=== PATIENT | male | born 1940 | race Caucasian/White ===

== ENCOUNTER → 2016-12-10 | Outpatient (REF) | payer MEDICARE, BC ==
[~2016-12-10] MED LIST: ALTA10CA; ALTACE; ASPI81TA63; GLUC500T; HYDR25TA6; THERGRAN; VITA200C; VITAMIN B-COMPLEX; [UNRECOGNIZED DRUG - OTHER]
[2016-12-10 11:11] LABS: MEAN CORPUSCULAR HEMOGLOBIN 32.4 pg (27.0-33.0); MEAN CORPUSCULAR HGB CONC 33.9 g/dl (32.0-36.5); MEAN CORPUSCULAR VOLUME 95.6 fl (80.0-96.0); RED CELL DISTRIBUTION WIDTH 13.2 % (11.5-14.5); WHITE BLOOD COUNT 8.9 K/mm3 (4.0-10.0)
[2016-12-10 11:16] LABS: INR 0.99
[2016-12-10 11:35] LABS: CALCIUM LEVEL 8.7 MG/DL (8.8-10.2); CREATININE FOR GFR 1.43 MG/DL (0.70-1.30); GLOMERULAR FILTRATION RATE 51.3 (>42); POTASSIUM SERUM 4.7 MEQ/L (3.5-5.1)
== END ==
LOC: M LABDRAWC 10:39
PROVIDERS: ATTEND Internal Medicine
DX: I10 Essential (primary) hypertension (principal); Z79.01 Long term (current) use of anticoagulants; I48.0 Paroxysmal atrial fibrillation

== ENCOUNTER → 2016-12-29 | Outpatient (REF) | payer MEDICARE, BC ==
[2016-12-29 12:49] LABS: BASO % 0.7 % (0.0-1.0); EOS # 0.1 K/mm3 (0.0-0.50); EOS % 0.9 % (0.0-3.0); LARGE UNSTAINED CELL # 0.1 K/mm3 (0.0-0.4); LARGE UNSTAINED CELL % 1.7 % (0.0-4.0); LYMPH # 2.4 K/mm3 (1.5-4.5); LYMPH % 32.2 % (24.0-44.0); MEAN CORPUSCULAR HEMOGLOBIN 31.4 pg (27.0-33.0); MEAN CORPUSCULAR HGB CONC 32.6 g/dl (32.0-36.5); MEAN CORPUSCULAR VOLUME 96.4 fl (80.0-96.0); MONO # 0.5 K/mm3 (0.0-0.8); MONO % 6.7 % (0.0-5.0); NEUTROPHILS # 4.1 K/mm3 (1.8-7.7); NEUTROPHILS % 57.8 % (36.0-66.0); PLATELET COUNT, AUTOMATED 213 k/mm3 (150-450); RED CELL DISTRIBUTION WIDTH 12.8 % (11.5-14.5); WHITE BLOOD COUNT 7.1 K/mm3 (4.0-10.0)
[2016-12-29 13:19] LABS: ALBUMIN 4.1 GM/DL (3.2-5.2); ALBUMIN/GLOBULIN RATIO 1.28 (1.00-1.93); BILIRUBIN,TOTAL 0.5 MG/DL (0.2-1.0); CALCIUM LEVEL 8.8 MG/DL (8.8-10.2); CREATININE FOR GFR 1.73 MG/DL (0.70-1.30); GLOMERULAR FILTRATION RATE 41.2 (>42); POTASSIUM SERUM 4.3 MEQ/L (3.5-5.1); TOTAL PROTEIN 7.3 GM/DL (6.4-8.2)
== END ==
LOC: M SFHCCLAY 08:01
PROVIDERS: ATTEND Nurse Practitioner
DX: D50.9 Iron deficiency anemia, unspecified (principal); E11.8 Type 2 diabetes mellitus with unspecified complications; Z12.5 Encounter for screening for malignant neoplasm of prostate
CPT/HCPCS: 80053; 80061; 82043; 83036; 83540; 85025; G0103

== ENCOUNTER → 2018-12-14 | Outpatient (REF) | payer MEDICARE, BC ==
[2018-12-14 18:06] LABS: BILIRUBIN,TOTAL 0.5 MG/DL (0.2-1.0); CALCIUM LEVEL 9.2 MG/DL (8.8-10.2); CHOLESTEROL RISK RATIO 3.025 (<5); CREATININE FOR GFR 1.67 MG/DL (0.70-1.30); GLOMERULAR FILTRATION RATE 42.7 (>42); POTASSIUM SERUM 4.7 MEQ/L (3.5-5.1); TOTAL PROTEIN 7.1 GM/DL (6.4-8.2)
[2018-12-14 18:15] LABS: MALB URINE SIEMENS 42.4 MG/L; MAU/CREAT RATIO 37.5 MCG/MG (0.0-30.0)
[2018-12-14 18:53] LABS: HEMOGLOBIN A1c 6.8 %
== END ==
LOC: M SFHCCLAY 13:09
PROVIDERS: ATTEND Family Medicine
DX: E11.8 Type 2 diabetes mellitus with unspecified complications (principal); Z13.220 Encounter for screening for lipoid disorders
CPT/HCPCS: 80053; 80061; 82043; 83036; 90670; G0009

== ENCOUNTER → 2019-01-10 | Outpatient (REF) | payer MEDICARE, BC ==
[2019-01-10 16:50] LABS: HEMATOCRIT 41.9 % (42.0-52.0); MEAN CORPUSCULAR HEMOGLOBIN 32.2 pg (27.0-33.0); MEAN CORPUSCULAR HGB CONC 33.4 g/dl (32.0-36.5); MEAN CORPUSCULAR VOLUME 96.3 fl (80.0-96.0); PLATELET COUNT, AUTOMATED 193 10^3/uL (150-450); RED BLOOD COUNT 4.35 10^6/uL (4.30-6.10); WHITE BLOOD COUNT 8.8 10^3/uL (4.0-10.0)
[2019-01-10 16:52] LABS: CALCIUM LEVEL 9.2 MG/DL (8.8-10.2); CREATININE FOR GFR 2.22 MG/DL (0.70-1.30); GLOMERULAR FILTRATION RATE 30.6 (>42)
== END ==
LOC: M LABDRAWC 16:17
PROVIDERS: ATTEND Internal Medicine Cardiovascular Disease
DX: I48.91 Unspecified atrial fibrillation (principal)

== ENCOUNTER → 2019-01-10 | Outpatient (REF) | payer MEDICARE, BC | LOC: M SFHCCLAY 11:52 | PROVIDERS: ATTEND Family Medicine | DX: E11.8 Type 2 diabetes mellitus with unspecified complications (principal) ==

== ENCOUNTER → 2019-02-07 | Outpatient (REF) | payer MEDICARE, BC ==
[2019-02-07 12:24] LABS: CALCIUM LEVEL 8.9 MG/DL (8.8-10.2); CREATININE FOR GFR 2.06 MG/DL (0.70-1.30); GLOMERULAR FILTRATION RATE 33.4 (>42); POTASSIUM SERUM 4.1 MEQ/L (3.5-5.1)
== END ==
LOC: M LABDRAWC 11:07
PROVIDERS: ATTEND Internal Medicine Cardiovascular Disease
DX: N18.9 Chronic kidney disease, unspecified (principal)
CPT/HCPCS: 36415; 80048; 83880; G0463

== ENCOUNTER → 2019-03-02 | Outpatient (CLI) | payer MEDICARE, BC ==
--- NOTE | 2019-03-02 15:58 | REP ---
HISTORY: Chronic kidney disease. COMPARISON: None. FINDINGS: Multiple ultrasonographic images of the right kidney show the right kidney to measure 11.7 x 5.5 x 5.9 cm. The renal cortical echotexture is unremarkable. There are no masses. There is good corticomedullary differentiation. There is no hydronephrosis. There are no perinephric fluid collections. Multiple ultrasonographic images of the left kidney show the left kidney to measure 11.2 x 5.1 x 5.3 cm. The renal cortical echotexture is unremarkable. There are no masses. There is good corticomedullary differentiation. There is no hydronephrosis. There are no perinephric fluid collections. Ultrasonography of the urinary bladder was not ordered as per review of the order in the patient's Localize Direct power jacket. Imaging of the urinary bladder was obtained solely for the purpose of assessing for uro-jet phenomenon. Ultrasonographic images of the urinary bladder show no evidence of uro-jet phenomenon from either UV junction. IMPRESSION: Within normal limits for the patient's age. Electronically Signed by Zackery Ureña DO 03/02/2019 04:24 P
== END ==
LOC: M RAD 12:54
PROVIDERS: ATTEND Internal Medicine Nephrology
DX: N18.3 Chronic kidney disease, stage 3 (moderate) (principal); I15.0 Renovascular hypertension

== ENCOUNTER 2020-10-30 14:38 | Inpatient (IN) | payer MEDICARE, BC ==
[~2020-10-30] VITALS: Ht 182.9 cm; Wt 123.4 kg
[~2020-10-30 14:38] MED LIST changes: +BACI1CAP PO; +CARA1TAB6 PO; +COQ1200C3 PO; +D31000TA2 PO; +DICY1CAP8 PO; +ELIQ5TAB PO; +EQL50TAB2 PO; +INVO100T PO; +LUTE2000 PO; +METO1TAB33 PO; +MI-A80CH PO; +PLAV1TAB2 PO; +PROTPAK PO; +SIMV40TA20 PO; +SITA50TAB PO
[2020-10-30 15:36] LABS: BASO % 0.4 % (0.0-1.0); EOS # 0.1 10^3/uL (0.0-0.5); HEMATOCRIT 38.6 % (42.0-52.0); HEMOGLOBIN 12.8 g/dl (13.5-17.5); LYMPH # 1.5 10^3/uL (1.5-5.0); LYMPH % 16.1 % (24.0-44.0); MEAN CORPUSCULAR HEMOGLOBIN 30.8 pg (27.0-33.0); MEAN CORPUSCULAR HGB CONC 33.2 g/dl (32.0-36.5); MONO % 10.2 % (2.0-8.0); NEUTROPHILS # 6.8 10^3/uL (1.5-8.5); NEUTROPHILS % 71.6 % (36.0-66.0); PLATELET COUNT, AUTOMATED 177 10^3/uL (150-450); RED BLOOD COUNT 4.15 10^6/uL (4.30-6.10); WHITE BLOOD COUNT 9.4 10^3/uL (4.0-10.0)
[2020-10-30 15:47] LABS: INR 1.3; PROTHROMBIN TIME 16.5 SECONDS (12.5-14.3)
--- NOTE | 2020-10-30 16:08 | REP ---
INDICATION: weakness/abdominal pain. COMPARISON: None. The accompanying upright frontal view the chest has been compared to the previous examination of 10/19/2020 TECHNIQUE: Supine and upright views 6 views total FINDINGS: The accompanying frontal view the chest is unchanged from the prior portable examination of 10/19/2020. There is no free subdiaphragmatic air. There is no acute disease. There is cardiomegaly accentuated by technique. Multiple views of the abdomen show multiple dilated gas-filled particularly large bowel but some small bowel as well. There is a paucity of gas in the rectosigmoid region. There is no evidence of free intraperitoneal air. IMPRESSION: Bowel obstruction <Electronically signed by Zackery Ureña > 10/30/20 [id number]
[2020-10-30 16:12] LABS: ALBUMIN 3.2 GM/DL (3.2-5.2); ALT/SGPT 32 U/L (12-78); BILIRUBIN,DIRECT 0.1 MG/DL (0.0-0.2); BILIRUBIN,TOTAL 0.4 MG/DL (0.2-1.0); BLOOD UREA NITROGEN 33 MG/DL (7-18); CALCIUM LEVEL 8.1 MG/DL (8.8-10.2); CARBON DIOXIDE LEVEL 24 MEQ/L (21-32); CHLORIDE LEVEL 108 MEQ/L (98-107); CK-MB VALUE MASS 1.1 NG/ML (<3.6); CPK CREATINE PHOSPHOKINASE 45 U/L (39-308); CREATININE FOR GFR 1.78 MG/DL (0.70-1.30); GLOMERULAR FILTRATION RATE 39.4 (>42); GLUCOSE, FASTING 170 MG/DL (70-100); MB/CK RELATIVE INDEX 2.44 (< OR =4); POTASSIUM SERUM 3.4 MEQ/L (3.5-5.1); SODIUM LEVEL 140 MEQ/L (136-145); TROPONIN I < 0.02 NG/ML (< 0.10)
[2020-10-30 17:34] LABS: RSV AMPLIFICATION NEGATIVE (NEGATIVE)
[2020-10-30] MEDS ORDERED: HOME MED LIST COMPLETE! XX SCH (17:40)
[2020-10-30] MEDS ORDERED: DEXTROSE 50% 50 ML SYRINGE IV PRN (19:05)
[2020-10-30] MEDS ORDERED: GLUCOSE 4GM CHEW TABLET PO PRN (19:05)
[2020-10-30] MEDS ORDERED: GLUCAGON INJ 1MG VIAL SC PRN (19:05)
[2020-10-30] MEDS: KCL 20MEQ IN D5/0.45NS 1000ML 1,000 ML IV SCH (19:05)
[2020-10-30] MEDS ORDERED: HumaLOG INSULIN (NovoLOG) PER UNIT SC SCH (19:05)
[2020-10-30] MEDS ORDERED: PILL CUTTER 1 EACH XX PRN (20:30)
[2020-10-30] MEDS ORDERED: METOPROLOL SUCC (TopROL XL) 100MG *XL* TAB PO SCH (21:00)
--- NOTE | 2020-10-30 21:18 | ECGEPIP ---
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
[2020-10-30 21:32] VITALS: BP 123/72
[2020-10-30] MEDS: HumaLOG INSULIN (NovoLOG) PER UNIT SC SCH (22:19)
[2020-10-30] MEDS: METOPROLOL SUCC (TopROL XL) 50MG **XL** TAB PO SCH (22:25)
[2020-10-30] MEDS: SIMETHICONE 80MG CHEW TAB PO SCH (22:26)
[2020-10-30] MEDS: PREPARATION H SUPP (HEMORRHOID) PR SCH (22:27)
[2020-10-31] MEDS: KCL 20MEQ IN D5/0.45NS 1000ML 1,000 ML IV SCH ×3 (03:56→20:19)
[2020-10-31 04:00] VITALS: BP 129/68
[2020-10-31] MEDS: HumaLOG INSULIN (NovoLOG) PER UNIT SC SCH ×4 (05:50→18:11)
[2020-10-31 08:04] VITALS: BP 114/73
[2020-10-31 08:58] LABS: HEMATOCRIT 35.7 % (42.0-52.0); HEMOGLOBIN 11.6 g/dl (13.5-17.5); MEAN CORPUSCULAR HEMOGLOBIN 30.7 pg (27.0-33.0); MEAN CORPUSCULAR HGB CONC 32.5 g/dl (32.0-36.5); MEAN CORPUSCULAR VOLUME 94.4 fl (80.0-96.0); PLATELET COUNT, AUTOMATED 164 10^3/uL (150-450); RED BLOOD COUNT 3.78 10^6/uL (4.30-6.10); WHITE BLOOD COUNT 7.9 10^3/uL (4.0-10.0)
[2020-10-31] MEDS ORDERED: METOPROLOL SUCC (TopROL XL) 50MG **XL** TAB PO SCH (09:00)
[2020-10-31] MEDS: METOPROLOL SUCC (TopROL XL) 100MG *XL* TAB PO SCH (09:22)
[2020-10-31] MEDS: PREPARATION H SUPP (HEMORRHOID) PR SCH ×2 (09:23→20:19)
[2020-10-31] MEDS: SIMETHICONE 80MG CHEW TAB PO SCH ×4 (09:23→20:20)
[2020-10-31 09:27] LABS: CALCIUM LEVEL 7.9 MG/DL (8.8-10.2); CREATININE FOR GFR 1.69 MG/DL (0.70-1.30); GLOMERULAR FILTRATION RATE 41.9 (>42); POTASSIUM SERUM 3.4 MEQ/L (3.5-5.1)
--- NOTE | 2020-10-31 09:59 | HPE ---
HISTORY AND PHYSICAL DATE OF ADMISSION: 10/30/2020 CHIEF COMPLAINT: Rectal bleeding. HISTORY OF PRESENT ILLNESS: Hugo Monson is a 80-year-old patient of Dr. Barone in the [facility]. He was recently hospitalized earlier this month for rectal bleeding. He had a colonoscopy performed, invasive colorectal adenocarcinoma, moderately differentiated, was biopsied from a sigmoid mass. He planned elective partial colectomy later this month. He redeveloped perfuse rectal bleeding today and came to the emergency room and is being admitted for observation and treatment. PAST MEDICAL HISTORY: He has a history of aortic valve replacement. He has a bioprosthetic aortic valve which functioned normally on echocardiogram from 10/19/2020. Ejection fraction was 60-65%. Left atrium mildly dilated 39 mm. History of type 2 diabetes. Chronic atrial fibrillation. Chronic kidney disease stage 3. Coronary artery disease with a stent in unspecified vessel, 2016. He had cardioversion, 12/23, 11/23, and then ablation procedure on 01/25. He is followed by cardiology group in [place]. No recent records have been sent to his primary care providers since 02/24. He did have a history of chronic diastolic congestive heart failure, pericardial effusion diagnosed in the past. He was on anticoagulant therapy until his recent episode. PAST SURGICAL HISTORY: 1. Aortic valve replacement with bioprosthetic aortic valve. 2. Coronary disease with stent in unspecified vessel. 3. Appendectomy. 4. Tonsillectomy. 5. Numerous cardioversions. 6. Ablation procedure on 01/25. ALLERGIES: SULFA. MEDICATIONS: 1. Plavix 75 mg daily. 2. Invokana 100 mg daily. 3. Jean-Paul multivitamins including lutein. 4. Vitamin B. 5. Vitamin D. 6. Metoprolol 100 mg in the morning. 7. Metoprolol 50 mg at bedtime. 8. Simvastatin 40 mg nightly at bedtime. 9. Januvia 50 mg daily. 10. Co-enzyme Q10. 11. Eliquis 5 mg b.i.d. 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 Quit smoking in 1973, moderate alcohol use. FAMILY HISTORY: Father of pulmonary embolism at 64. Sibling with CHF and hepatitis C. REVIEW OF SYSTEMS: No vomiting, emesis, or nausea. He is passing flatus. He is quite distended per his spouse. No polyuria or polydipsia, fever or chills. PHYSICAL EXAMINATION: VITAL SIGNS: Per flow sheet. GENERAL APPEARANCE: He is alert, conversant, in no distress. HEENT: Unremarkable. LUNGS: Clear. HEART: Regular rhythm, LUNGS: Decreased breath sounds, scattered rhonchi. HEART: Regular rate and rhythm, 1/6 systolic ejection murmur. ABDOMEN: Soft and nontender with no masses. EXTREMITIES: No clubbing, cyanosis. He has 1+ peripheral edema. This was of recent onset per his partner. NECK: No JVD is present. LABORATORY: White count 9.4, hemoglobin 12.8, platelets 177. Sodium 140, potassium 3.4, BUN 32, creatinine 1.7, glucose 170. COVID test negative. IMPRESSION: 1. Rectal bleeding. The patient with known sigmoid adenocarcinoma. Serial CBCs have been ordered. He has typed and screened. He is not currently actively bleeding. Despite the edema, I am getting him some hydration due to today's bleeding. 2. Diabetes. Sliding scale and insulin coverage has been ordered. 3. History of aortic valve replacement. Bioprosthetic aortic valve was functioning normally on a recent echocardiogram. 4. History of atrial fibrillation, currently in sinus rhythm. He has had an ablation procedure. Preoperative EKG has been ordered. 5. Hypertensive heart disease. Continue his metoprolol 100 mg in the morning and 50 mg in the evening. 6. Hypokalemia. Supplemental potassium has been ordered in the IV fluids. 7. Lower extremity edema. TEDs and SCDs have been ordered. He had a chest x-ray. He had normal systolic function on recent echocardiogram. Hydrate him overnight even if he is n.p.o. I do not want him going to the operating room dehydrated, but we have to watch his volume status closely.
--- NOTE | 2020-10-31 10:21 | IPN ---
PROGRESS NOTE DATE: 10/31/2020 SUBJECTIVE: Hugo was admitted with rectal bleeding yesterday that seems to be improved. There is just a scant amount of bleeding noted per patient today. OBJECTIVE: VITAL SIGNS: Blood pressure 114/73, afebrile. GENERAL APPEARANCE: Alert, conversant, in no distress. LUNGS: Clear. HEART: Regular rate and rhythm. ABDOMEN: Soft, nontender. EXTREMITIES: No peripheral edema. LABORATORY DATA: Potassium 3.4, creatinine stable at 1.7. Hemoglobin stable at 11.6. IMPRESSION: 1. Rectal bleeding presumably from his sigmoid adenocarcinoma. He will stay in the hospital until his surgery is completed. 2. Diabetes, on sliding scale insulin and coverage while off his oral agents. 3. Hypertensive heart disease, continue his metoprolol 50 mg at bedtime, 100 mg in the morning. 4. History of coronary artery disease, his Eliquis and Plavix are on hold pending surgery. The case was discussed yesterday with Dr. Newell who will see the patient in consultation.
[2020-10-31 12:00] VITALS: BP 143/76
--- NOTE | 2020-10-31 14:29 | IPN ---
PROGRESS NOTE DATE: 10/31/2020 SUBJECTIVE: This patient was admitted last night with this large bowel obstruction/rectal bleeding. His hematocrit has been relatively stable although he has had a little bit of a decline in his hematocrit and his other chemistries seem to be improving with hydration. His creatinine seems to be diminishing a little bit with hydration. Otherwise he is not complaining of any abdominal pain. He has had some minimal bowel movements and states there is still some blood present and notices a great deal of gas still. OBJECTIVE: PHYSICAL EXAMINATION: ABDOMEN: Distended, tympanitic throughout without guarding, without rebound. IMPRESSION AND PLAN: The patient has a large bowel obstruction. I recommend that he continue with some supportive care over the weekend and see if he decompresses adequately to put him on the schedule for a laparoscopic colectomy/possible colostomy next week. In the meantime, if he becomes less distended over the next 24-48 hours, it may be reasonable to start up some clear liquids and then possibly do a minimal amount of bowel prep preoperatively to help with decreasing perioperative risks of infection, etc.
[2020-10-31 16:00] VITALS: BP 131/85
[2020-10-31 20:00] VITALS: BP 118/66
[2020-10-31] MEDS: METOPROLOL SUCC (TopROL XL) 50MG **XL** TAB PO SCH (20:20)
[2020-11-01] VITALS: BP 120/78
[2020-11-01] MEDS: HumaLOG INSULIN (NovoLOG) PER UNIT SC SCH ×5 (00:58→23:49)
[2020-11-01] MEDS: KCL 20MEQ IN D5/0.45NS 1000ML 1,000 ML IV SCH ×3 (03:13→18:23)
[2020-11-01 07:45] VITALS: BP 131/71
[2020-11-01 08:30] LABS: HEMATOCRIT 35.4 % (42.0-52.0); HEMOGLOBIN 11.4 g/dl (13.5-17.5); MEAN CORPUSCULAR HEMOGLOBIN 30.8 pg (27.0-33.0); MEAN CORPUSCULAR HGB CONC 32.2 g/dl (32.0-36.5); MEAN CORPUSCULAR VOLUME 95.7 fl (80.0-96.0); PLATELET COUNT, AUTOMATED 166 10^3/uL (150-450); WHITE BLOOD COUNT 6.8 10^3/uL (4.0-10.0)
[2020-11-01] MEDS: METOPROLOL SUCC (TopROL XL) 100MG *XL* TAB PO SCH (08:53)
[2020-11-01] MEDS: SIMETHICONE 80MG CHEW TAB PO SCH ×4 (08:53→21:06)
[2020-11-01] MEDS: PREPARATION H SUPP (HEMORRHOID) PR SCH ×2 (08:53→21:00)
[2020-11-01 08:56] LABS: CALCIUM LEVEL 7.8 MG/DL (8.8-10.2); CREATININE FOR GFR 1.58 MG/DL (0.70-1.30); GLOMERULAR FILTRATION RATE 45.3 (>42); POTASSIUM SERUM 3.6 MEQ/L (3.5-5.1)
--- NOTE | 2020-11-01 10:01 | IPN ---
PROGRESS NOTE DATE: 11/01/2020 SUBJECTIVE: Matthew is having some scant rectal bleeding. He was seen by Dr. Newell. The plan is for laparoscopic colectomy, possible colostomy next week. OBJECTIVE: VITAL SIGNS: Stable blood pressure 131/71. LUNGS: Clear. HEART: Regular rate and rhythm. ABDOMEN: Soft and mildly distended. Good bowel sounds. EXTREMITIES: Trace peripheral edema. LABORATORY DATA: CBC hemoglobin is 11.4 essentially stable. Creatinine is down to 1.58. ASSESSMENT AND PLAN: 1. Rectal bleeding secondary to sigmoid adenocarcinoma. The plan is for laparoscopic colectomy. I am going to defer to surgery as far as ordering the bowel prep, etc. that Dr. Newell noted. 2. Diabetes. Sliding scale insulin coverage. 3. Hypertensive heart disease. Blood pressure is well-controlled on current regimen. 4. History of coronary artery disease. Eliquis and Plavix are on hold pending surgery.
[2020-11-01] MEDS: MIRALAX *UNIT DOSE* 17GM PACKET PO SCH ×2 (10:43→21:06)
[2020-11-01 13:00] VITALS: BP 165/84
[2020-11-01 14:00] VITALS: BP 136/74
--- NOTE | 2020-11-01 17:59 | IPNPDOC ---
Text Note Date of Service The patient was seen on 11/01/20. NOTE Nurse reports nonbloody loose stool this morning. He has episodes where he is nauseated by the time they saw him he denies any nausea. Vitals reviewed stable, no tachycardia, afebrile Patient sitting up on the chair, awake alert and oriented, looks comfortable Abdominal examination shows that he still moderately distended and tympanic though he does not have any tenderness on palpation Impression and plan Known sigmoid colon adenocarcinoma with partial obstruction and bleeding from the mass. He was expecting that he was going to surgery on Tuesday. I clarified to him that he is not on the surgical schedule as of yet. They will inform Dr. Cheng on Tuesday and it will be up to him when to do his surgery. I will start a slow prep with MiraLAX twice daily and see how he tolerates this and maybe increase it later on if he does tolerate taking some laxatives. VS,Fishbone, I+O VS, Fishbone, I+O Laboratory Tests 11/01/20 08:03 Vital Signs Date Time Temp Pulse Resp B/P (MAP) Pulse Ox O2 Delivery O2 Flow Rate FiO2 11/01/20 14:00 136/74 (94) 11/01/20 13:00 97.3 77 18 99 Room Air I&O- Last 24 Hours up to 6 AM 11/01/20 06:00 Intake Total 1000 ml Output Total 750 ml Balance 250 ml NIKKIE IGNACIO MD Nov 01, 2020 17:59
[2020-11-01] MEDS: METOPROLOL SUCC (TopROL XL) 50MG **XL** TAB PO SCH (21:07)
[2020-11-01 22:00] VITALS: BP 114/67
[2020-11-02] MEDS: KCL 20MEQ IN D5/0.45NS 1000ML 1,000 ML IV SCH ×4 (03:42→20:55)
[2020-11-02 05:31] VITALS: BP 128/70
[2020-11-02] MEDS: HumaLOG INSULIN (NovoLOG) PER UNIT SC SCH ×4 (05:39→23:57)
[2020-11-02 06:49] LABS: HEMATOCRIT 34.3 % (42.0-52.0); MEAN CORPUSCULAR HEMOGLOBIN 30.5 pg (27.0-33.0); MEAN CORPUSCULAR HGB CONC 32.1 g/dl (32.0-36.5); PLATELET COUNT, AUTOMATED 161 10^3/uL (150-450); RED BLOOD COUNT 3.61 10^6/uL (4.30-6.10); WHITE BLOOD COUNT 6.2 10^3/uL (4.0-10.0)
[2020-11-02 07:10] LABS: CALCIUM LEVEL 7.7 MG/DL (8.8-10.2); CREATININE FOR GFR 1.62 MG/DL (0.70-1.30); POTASSIUM SERUM 3.6 MEQ/L (3.5-5.1)
[2020-11-02] MEDS: SIMETHICONE 80MG CHEW TAB PO SCH ×4 (08:24→20:57)
[2020-11-02] MEDS: MIRALAX *UNIT DOSE* 17GM PACKET PO SCH ×2 (08:24→20:57)
[2020-11-02] MEDS: METOPROLOL SUCC (TopROL XL) 100MG *XL* TAB PO SCH (08:24)
[2020-11-02] MEDS: PREPARATION H SUPP (HEMORRHOID) PR SCH ×2 (08:24→21:00)
--- NOTE | 2020-11-02 09:38 | IPN ---
PROGRESS NOTE DATE: 11/02/2020 SUBJECTIVE: Hugo is stable. No significant rectal bleeding. No significant abdominal pain. OBJECTIVE: VITAL SIGNS: He has been stable. Vital signs stable. LUNGS: Clear. HEART: Regular rate and rhythm. ABDOMEN: Obese and nontender with no masses. EXTREMITIES: No peripheral edema. LABORATORY DATA: Hemoglobin is 11. Creatinine stable at 1.6. Blood sugars are below 200. ASSESSMENT: Rectal bleeding from adenocarcinoma. PLAN: We are waiting for surgery to put him on the schedule so we can perform his procedure during this admission. I appreciate Dr. Astorga's note. He is going to find Dr. Shay and get this set up.
[2020-11-02 14:00] VITALS: BP 116/71
[2020-11-02 20:57] VITALS: BP 112/72
[2020-11-02] MEDS: METOPROLOL SUCC (TopROL XL) 50MG **XL** TAB PO SCH (20:57)
[2020-11-03] MEDS: KCL 20MEQ IN D5/0.45NS 1000ML 1,000 ML IV SCH ×2 (05:36→21:41)
[2020-11-03] MEDS: HumaLOG INSULIN (NovoLOG) PER UNIT SC SCH ×3 (05:43→18:42)
[2020-11-03 06:00] VITALS: BP 93/60
[2020-11-03 06:41] LABS: HEMATOCRIT 32.5 % (42.0-52.0); HEMOGLOBIN 10.3 g/dl (13.5-17.5); MEAN CORPUSCULAR HEMOGLOBIN 30.2 pg (27.0-33.0); MEAN CORPUSCULAR HGB CONC 31.7 g/dl (32.0-36.5); MEAN CORPUSCULAR VOLUME 95.3 fl (80.0-96.0); PLATELET COUNT, AUTOMATED 146 10^3/uL (150-450); RED BLOOD COUNT 3.41 10^6/uL (4.30-6.10); WHITE BLOOD COUNT 5.8 10^3/uL (4.0-10.0)
[2020-11-03 07:02] LABS: CALCIUM LEVEL 7.9 MG/DL (8.8-10.2); CREATININE FOR GFR 1.65 MG/DL (0.70-1.30); GLOMERULAR FILTRATION RATE 43.1 (>42); POTASSIUM SERUM 3.9 MEQ/L (3.5-5.1)
[2020-11-03] MEDS: MIRALAX *UNIT DOSE* 17GM PACKET PO SCH ×2 (10:36→21:41)
[2020-11-03] MEDS: SIMETHICONE 80MG CHEW TAB PO SCH ×4 (10:37→21:41)
[2020-11-03] MEDS: METOPROLOL SUCC (TopROL XL) 100MG *XL* TAB PO SCH (10:37)
[2020-11-03] MEDS: PREPARATION H SUPP (HEMORRHOID) PR SCH ×2 (10:38→21:00)
--- NOTE | 2020-11-03 13:07 | IPN ---
PROGRESS NOTE DATE: 11/03/2020 SUBJECTIVE: No new rectal bleeding, waiting for his surgeon to schedule his partial colectomy. OBJECTIVE: 93/60 this morning, pulse 78, respiratory rate 16, afebrile. No complaints. Lungs clear. Heart regular rhythm. Abdomen soft, nontender, non-distended. No peripheral edema. LABS: Hemoglobin 10.3 which is stable. Electrolytes unremarkable. Creatinine 1.65 which is stable. Blood sugars below 200. ASSESSMENT/PLAN: 1. Rectal bleeding from sigmoid adenocarcinoma. I discussed the case with Dr. Shay yesterday and he will put him on the schedule for this week. 2. Diabetes: Sliding scale insulin while his oral agents are held. 3. Hypertensive heart disease: Blood pressure is a little low this morning and I have ordered hold parameters. 4. History of coronary artery disease: Plavix and Eliquis were held on admission. These will need to be restarted after his surgery.
[2020-11-03 14:00] VITALS: BP 124/78
--- NOTE | 2020-11-03 14:43 | IPNPDOC ---
Text Note Date of Service The patient was seen on 11/03/20. NOTE Gen. surgery. Dr. hSay. The patient is a 80-year-old male with known sigmoid colon adenocarcinoma with partial obstruction and bleeding from the mass, admitted 10/31/20 with rectal bleeding. Afebrile. VSS. Lungs clear to auscultation S1-S2 regular rate and rhythm Abdomen soft, nontender, nondistended. No edema. Hgb 10.3. A/P Known sigmoid colon adenocarcinoma with partial obstruction and bleeding from the mass, admitted 10/31/20 with rectal bleeding. The patient reports no further bleeding. Hemoglobin is noted to be 10.3. The patient is reviewed with Dr. Shay. Tentative plan is to schedule the patient for partial colectomy this week with Dr Shay. Eliquis and Plavix are currently on hold. VS,Fishbone, I+O VS, Fishbone, I+O Laboratory Tests 11/03/20 06:11 Vital Signs Date Time Temp Pulse Resp B/P (MAP) Pulse Ox O2 Delivery O2 Flow Rate FiO2 11/03/20 10:37 84 125/78 11/03/20 06:00 97.7 16 98 Room Air I&O- Last 24 Hours up to 6 AM 11/03/20 06:00 Intake Total 2565 ml Balance 2565 ml Erica Cadet Nov 03, 2020 14:43
[2020-11-03] MEDS: METOPROLOL SUCC (TopROL XL) 50MG **XL** TAB PO SCH (21:43)
[2020-11-03 22:06] VITALS: BP 108/74
[2020-11-04] MEDS: HumaLOG INSULIN (NovoLOG) PER UNIT SC SCH ×4 (00:06→18:15)
[2020-11-04 06:30] VITALS: BP 123/77
[2020-11-04 06:54] LABS: HEMATOCRIT 33.8 % (42.0-52.0); HEMOGLOBIN 10.7 g/dl (13.5-17.5); MEAN CORPUSCULAR HEMOGLOBIN 30.7 pg (27.0-33.0); MEAN CORPUSCULAR HGB CONC 31.7 g/dl (32.0-36.5); MEAN CORPUSCULAR VOLUME 96.8 fl (80.0-96.0); PLATELET COUNT, AUTOMATED 162 10^3/uL (150-450); RED BLOOD COUNT 3.49 10^6/uL (4.30-6.10); WHITE BLOOD COUNT 6.7 10^3/uL (4.0-10.0)
[2020-11-04 07:22] LABS: CALCIUM LEVEL 8.1 MG/DL (8.8-10.2); CREATININE FOR GFR 1.63 MG/DL (0.70-1.30); GLOMERULAR FILTRATION RATE 43.7 (>42); POTASSIUM SERUM 3.9 MEQ/L (3.5-5.1)
[2020-11-04] MEDS ORDERED: GOLYTELY SOLN 4000 ML BTL PO ONE (08:00)
[2020-11-04] MEDS: MIRALAX *UNIT DOSE* 17GM PACKET PO SCH (08:08)
[2020-11-04] MEDS: METOPROLOL SUCC (TopROL XL) 100MG *XL* TAB PO SCH (08:08)
[2020-11-04] MEDS: SIMETHICONE 80MG CHEW TAB PO SCH ×4 (08:08→21:52)
[2020-11-04] MEDS: PREPARATION H SUPP (HEMORRHOID) PR SCH ×2 (08:09→21:00)
--- NOTE | 2020-11-04 08:51 | IPNPDOC ---
Text Note Date of Service The patient was seen on 11/04/20. NOTE Gen. surgery. Dr. Sahy. The patient is a 80-year-old male with known sigmoid colon adenocarcinoma with partial obstruction and bleeding from the mass, admitted 10/31/20 with rectal bleeding. Afebrile. VSS. Lungs clear to auscultation S1-S2 regular rate and rhythm Abdomen soft, nontender, nondistended. No edema. Hgb 10.7. A/P Known sigmoid colon adenocarcinoma with partial obstruction and bleeding from the mass, admitted 10/31/20 with rectal bleeding. The patient reports no further bleeding. Hemoglobin is noted to be 10.7. The patient is reviewed and examined by Dr. Shay. Plan is for partial colectomy with Dr Shay tomorrow afternoon. Eliquis and Plavix are currently on hold. VS,Fishbone, I+O VS, Fishbone, I+O Laboratory Tests 11/04/20 05:53 Vital Signs Date Time Temp Pulse Resp B/P (MAP) Pulse Ox O2 Delivery O2 Flow Rate FiO2 11/04/20 08:08 75 123/77 11/04/20 06:30 97.6 16 98 Room Air I&O- Last 24 Hours up to 6 AM 11/04/20 05:59 Intake Total 2985 ml Balance 2985 ml Erica Cadet Nov 04, 2020 08:51
[2020-11-04 14:00] VITALS: BP 132/82
[2020-11-04] MEDS: KCL 20MEQ IN D5/0.45NS 1000ML 1,000 ML IV SCH (16:42)
--- NOTE | 2020-11-04 17:14 | IPNPDOC ---
Subjective Date Seen The patient was seen on 11/04/20. Subjective Chief Complaint/HPI rectal bleeding Objective Physical Examination General Exam: Positive: Alert, Cooperative, No Acute Distress Eye Exam: Positive: PERRLA ENT Exam: Positive: Atraumatic, Mucous membr. moist/pink Neck Exam: Positive: Supple Chest Exam: Positive: Clear to auscultation Heart Exam: Positive: Rate Normal Abdomen Exam: Positive: Normal bowel sounds, Soft; Negative: Tenderness Extremity Exam: Positive: Edema Skin Exam: Negative: Rash Neuro Exam: Positive: Normal Speech Psych Exam: Positive: Mood NL Assessment /Plan Assessment 80 y/o M with h/o adenocarcinoma initially came to ER c/o rectal bleeding Labs and imaging studies reviewed Pt denied any physical complaint. No more episode of rectal bleeding Plan 1. episode of rectal bleeding from sigmoid adenocarcinoma. will f/u with Dr Shay for surgery 2.DM type 2 insulin sliding scale 3. Obesity supportive care 4. HTN home meds 5. h/o CAD home meds will restart home meds Plavix and Eliquis after surgery 6. h/o Afib will continue rate control medication Metoprolol will continue to hold Eliquis due to episode of rectal bleeding will resume home medication Eliquis after surgery Plan/VTE VTE Prophylaxis Ordered?: No VTE Exclusion Pharmacological: Bleeding Risk VS, I&O, 24H, Fishbone Vital Signs/I&O Vital Signs Date Time Temp Pulse Resp B/P (MAP) Pulse Ox O2 Delivery O2 Flow Rate FiO2 11/04/20 14:00 98.6 75 17 132/82 (99) 100 Room Air I&O- Last 24 Hours up to 6 AM 11/04/20 06:00 Intake Total 2535 ml Balance 2535 ml Laboratory Data 24H LABS Laboratory Tests 2 11/03/20 18:05: Bedside Glucose (Misc Panel) 137H 11/04/20 00:02: Bedside Glucose (Misc Panel) 145H 11/04/20 05:34: Bedside Glucose (Misc Panel) 174H 11/04/20 05:53: Nucleated Red Blood Cells % (auto) 0.0, Anion Gap 10, Glomerular Filtration Rate 43.7, Calcium Level 8.1L 11/04/20 11:53: Bedside Glucose (Misc Panel) 157H CBC/BMP Laboratory Tests 11/04/20 05:53 MARGARITO PINEDA MD Nov 04, 2020 17:14
[2020-11-04] MEDS: METOPROLOL SUCC (TopROL XL) 50MG **XL** TAB PO SCH (21:00)
[2020-11-05] MEDS: HumaLOG INSULIN (NovoLOG) PER UNIT SC SCH ×4 (00:47→16:50)
[2020-11-05 05:47] LABS: HEMATOCRIT 34.4 % (42.0-52.0); HEMOGLOBIN 11.2 g/dl (13.5-17.5); MEAN CORPUSCULAR HEMOGLOBIN 30.9 pg (27.0-33.0); MEAN CORPUSCULAR HGB CONC 32.6 g/dl (32.0-36.5); PLATELET COUNT, AUTOMATED 165 10^3/uL (150-450); RED BLOOD COUNT 3.62 10^6/uL (4.30-6.10); WHITE BLOOD COUNT 6.8 10^3/uL (4.0-10.0)
[2020-11-05 06:00] VITALS: BP 125/89
[2020-11-05 06:21] LABS: CREATININE FOR GFR 1.52 MG/DL (0.70-1.30); GLOMERULAR FILTRATION RATE 47.3 (>42); POTASSIUM SERUM 3.8 MEQ/L (3.5-5.1)
[2020-11-05] MEDS: SIMETHICONE 80MG CHEW TAB PO SCH ×4 (08:14→21:28)
[2020-11-05] MEDS: METOPROLOL SUCC (TopROL XL) 100MG *XL* TAB PO SCH (08:14)
[2020-11-05] MEDS: PREPARATION H SUPP (HEMORRHOID) PR SCH ×2 (08:14→21:00)
[2020-11-05] MEDS: KCL 20MEQ IN D5/0.45NS 1000ML 1,000 ML IV SCH ×2 (12:51→22:43)
[2020-11-05] MEDS ORDERED: fentaNYL 100 MCG/2 ML INJECTION (J3010) As Ordered ONE ×4 (13:13→19:53)
[2020-11-05 14:00] VITALS: BP 140/87
[2020-11-05] MEDS ORDERED: BUPIVACAINE/EPIN 0.25% 30 ML VIAL ONE (14:52)
--- NOTE | 2020-11-05 14:55 | IPNPDOC ---
Text Note Date of Service The patient was seen on 11/05/20. NOTE No acute changes overnight. He tolerated the prep. Consent is signed. To OR this afternoon for RA sigmoid resection for colon cancer. No changes to H+P. Juan Shay DO VS,Sveta, I+O VS, Sveta, I+O Laboratory Tests 11/05/20 05:31 Vital Signs Date Time Temp Pulse Resp B/P (MAP) Pulse Ox O2 Delivery O2 Flow Rate FiO2 11/05/20 08:14 76 125/89 11/05/20 06:00 98.1 20 99 Room Air I&O- Last 24 Hours up to 6 AM 11/05/20 06:00 Intake Total 1620 ml Balance 1620 ml DAVIS SHAY DO Nov 05, 2020 14:55
--- NOTE | 2020-11-05 15:03 | IPNPDOC ---
Subjective Date Seen The patient was seen on 11/05/20. Subjective Chief Complaint/HPI episode of rectal bleeding Objective Physical Examination General Exam: Positive: Alert, Cooperative, No Acute Distress Eye Exam: Positive: PERRLA ENT Exam: Positive: Atraumatic, Mucous membr. moist/pink Neck Exam: Positive: Supple Chest Exam: Positive: Clear to auscultation Heart Exam: Positive: Rate Normal Abdomen Exam: Positive: Normal bowel sounds, Soft; Negative: Tenderness Extremity Exam: Positive: Edema Skin Exam: Negative: Rash Neuro Exam: Positive: Normal Speech Psych Exam: Positive: Mood NL Assessment /Plan Assessment 80 y/o M with h/o adenocarcinoma initially came to ER c/o rectal bleeding Labs and imaging studies reviewed No significant event over the night. Pt was resting comfortably in bed. Denied any physical complaint. No more episode of rectal bleeding Plan 1. episode of rectal bleeding from sigmoid adenocarcinoma. will f/u with Dr Shay for surgery 2.DM type 2 insulin sliding scale 3. Obesity supportive care 4. HTN home meds 5. h/o CAD home meds will restart home meds Plavix and Eliquis after surgery 6. h/o Afib will continue rate control medication Metoprolol will continue to hold Eliquis due to episode of rectal bleeding will resume home medication Eliquis after surgery 7. CKD stage 3 stable will avoid nephrotoxic meds Plan/VTE VTE Prophylaxis Ordered?: No VTE Exclusion Pharmacological: Bleeding Risk VS, I&O, 24H, Fishbone Vital Signs/I&O Vital Signs Date Time Temp Pulse Resp B/P (MAP) Pulse Ox O2 Delivery O2 Flow Rate FiO2 11/05/20 08:14 76 125/89 11/05/20 06:00 98.1 20 99 Room Air I&O- Last 24 Hours up to 6 AM 11/05/20 06:00 Intake Total 1620 ml Balance 1620 ml Laboratory Data 24H LABS Laboratory Tests 2 11/04/20 18:11: Bedside Glucose (Misc Panel) 137H 11/05/20 00:21: Bedside Glucose (Misc Panel) 151H 11/05/20 05:31: Nucleated Red Blood Cells % (auto) 0.0, Anion Gap 10, Glomerular Filtration Rate 47.3, Calcium Level 8.0L CBC/BMP Laboratory Tests 11/05/20 05:31 Microbiology Microbiology 11/05/20 Respiratory Virus Panel (PCR) (SUDHIR) - Final, Complete MARGARITO PINEDA MD Nov 05, 2020 15:03
[2020-11-05] MEDS ORDERED: ERTAPENEM 1GM VIAL(INVanz) (J1335 PER 500MG) ONE (15:17)
[2020-11-05] MEDS ORDERED: LIDOCAINE 2% 100MG/5ML SDV (FOR ANES.) As Ordered ONE (16:13)
[2020-11-05] MEDS ORDERED: ROCURONIUM BROMIDE 50 MG/5 ML VIAL As Ordered ONE ×2 (16:13→16:14)
[2020-11-05] MEDS ORDERED: propofoL 200 MG/20 ML VIAL As Ordered ONE (16:13)
[2020-11-05] MEDS ORDERED: dexameTHASONE 4 MG/ML 1ML VIAL (J1100 PER 1MG) As Ordered ONE (16:14)
[2020-11-05] MEDS ORDERED: METOCLOPRAMIDE INJ 10MG/2ML VIAL (J2765 PER 1) As Ordered ONE (16:14)
[2020-11-05] MEDS ORDERED: ePHEDrine SULFATE 25 MG/5 ML(5MG/ML) SYRINGE As Ordered ONE (16:15)
[2020-11-05] MEDS ORDERED: PHENYLephrine 500MCG 5ML (100MCG/ML) SYRINGE As Ordered ONE (16:15)
[2020-11-05] MEDS ORDERED: ONDANSETRON 4MG/2ML VIAL As Ordered ONE (16:20)
[2020-11-05] MEDS ORDERED: SUGAMMADEX SODIUM 500 MG/5 ML VIAL (BRIDION) As Ordered ONE (16:21)
[2020-11-05] MEDS ORDERED: SEVOFLURANE INHAL SOLN 250 ML BTL As Ordered ONE (17:18)
[2020-11-05] MEDS ORDERED: NORCO, ANEXSIA 5/325MG TABLET (HYDROcodone/ACETAMINOPHEN) PO PRN (19:15)
[2020-11-05] MEDS ORDERED: ONDANSETRON 4MG/2ML VIAL IV PRN (20:05)
[2020-11-05] MEDS ORDERED: oxyCODONE 5MG TAB PO PRN (20:05)
[2020-11-05] MEDS ORDERED: fentaNYL 100 MCG/2 ML INJECTION (J3010) IV PRN (20:05)
[2020-11-05] MEDS ORDERED: LR 1,000 ML IV SCH (20:05)
[2020-11-05] MEDS ORDERED: HYDROMORPHONE HCL 0.5 MG/ 0.5 ML SYRINGE (J1170 PER 1) IV PRN (20:05)
[2020-11-05 20:45] VITALS: BP 142/87
[2020-11-05 21:26] VITALS: BP 142/88
[2020-11-05] MEDS: PIPERACILLIN/TAZOBACTAM SOD 3.375 GM in D5W MINI-BAG PLUS 50 ML IV SCH (21:29)
[2020-11-05] MEDS: METOPROLOL SUCC (TopROL XL) 50MG **XL** TAB PO SCH (21:29)
[2020-11-05 22:38] VITALS: BP 136/82
[2020-11-05] MEDS: KETOROLAC 30 MG/ML 1ML VIAL IV PRN (23:23)
[2020-11-05 23:30] VITALS: BP 142/86
[2020-11-06] VITALS (8 sets, daily range): BP systolic 102–127; BP diastolic 55–73
[2020-11-06] MEDS: KCL 20MEQ IN D5/0.45NS 1000ML 1,000 ML IV SCH ×2 (00:14→13:48)
[2020-11-06] MEDS: HumaLOG INSULIN (NovoLOG) PER UNIT SC SCH ×5 (00:54→18:10)
[2020-11-06] MEDS: PIPERACILLIN/TAZOBACTAM SOD 3.375 GM in D5W MINI-BAG PLUS 50 ML IV SCH ×4 (02:51→20:02)
[2020-11-06 06:21] LABS: HEMATOCRIT 33.9 % (42.0-52.0); HEMOGLOBIN 10.9 g/dl (13.5-17.5); MEAN CORPUSCULAR HEMOGLOBIN 30.2 pg (27.0-33.0); MEAN CORPUSCULAR HGB CONC 32.2 g/dl (32.0-36.5); MEAN CORPUSCULAR VOLUME 93.9 fl (80.0-96.0); PLATELET COUNT, AUTOMATED 160 10^3/uL (150-450); RED BLOOD COUNT 3.61 10^6/uL (4.30-6.10); WHITE BLOOD COUNT 9.4 10^3/uL (4.0-10.0)
[2020-11-06] MEDS: KETOROLAC 30 MG/ML 1ML VIAL IV PRN (06:38)
[2020-11-06 06:39] LABS: CALCIUM LEVEL 7.7 MG/DL (8.8-10.2); CREATININE FOR GFR 1.76 MG/DL (0.70-1.30); POTASSIUM SERUM 4.3 MEQ/L (3.5-5.1)
--- NOTE | 2020-11-06 07:52 | RO ---
OPERATIVE NOTE DATE OF OPERATION: 11/05/2020 PREOPERATIVE DIAGNOSIS: Sigmoid colon cancer. POSTOPERATIVE DIAGNOSIS: Incarcerated umbilical hernia and rectal cancer. PROCEDURE: Robotic low anterior resection and incarcerated umbilical hernia repair. SURGEON: Cm Shay DO WARPING MACHINE OPERATOR: Dr. Newell who assisted with reanastomosis of the colon to the distal rectum. ANESTHESIA: General. EBL: 20. COMPLICATIONS: None. INDICATIONS FOR PROCEDURE: The patient is a 80-year-old male who presented with known history of rectal cancer and was having intermittent bleeding. Recommendation was to proceed with robotic repair. Risks and benefits of the procedure not limited to but including bleeding, infection, hernias, damage to surrounding structures, anastomotic leak were discussed in detail with the patient and informed consent was obtained and procedure planned. DESCRIPTION OF PROCEDURE: The patient was brought back to operating room 7. After sufficient sedation the abdomen was sterilely prepped and draped. Cedeno catheter was placed. Time out was done to confirm proper patient and proper procedure. Following that an 8 mm incision was made in left upper quadrant, Veress needle was inserted and abdomen insufflated to 15 mmHg. Veress needle was then removed. 8 mm Optiview port was used to gain access to the abdomen. Once the abdomen was entered three more ports were placed diagonally from the left upper quadrant to the right lower quadrant with the right lower one being 12 mm port. Once the abdomen was entered, using Metzenbaum scissors with cautery, I was able to take down omental adhesions going into a hernia sac and was unable to reduce it intraperitoneally. The sigmoid was mobilized laterally all the way up to the descending colon, all the way down into the pelvis. There was redundant sigmoid going all the way over to the cecum and down into the pelvis, this was all gently elevated freely and mobilized. The rectosigmoid junction was then transected ad then colonoscope was passed through the rectum to see if the specimen was within it which it was not. The specimen was inside of the mid upper rectum. Dissection was carried out distally going down to the peritoneal reflection where it was encircled again and transected, specimen was brought over to the side, the sigmoid was brought down into the pelvis and was able to reach for reanastomosis without any tension. The robot was removed. The umbilical hernia was dissected free. The hernia sac was removed along with hernia contents. The fascia was then opened a little bit wider and the specimen was removed. The specimen was opened up on the back table revealing that the entire tumor was within the specimen. The sigmoid colon was then brought out through the incision. 29 EEA stapler anvil was placed into the end of the sigmoid, sutured in placed with Prolene suture. This was then placed back inside the abdomen, fascial incision at the umbilicus was closed with running #1 PDS suture. Abdomen was re-insufflated. EEA stapler was brought in through the rectum, connected to the anvil and fired revealing two solid donuts. The colonoscope was passed in freely and showed the anastomosis was intact, saline was placed inside the pelvis and there were no signs of any air leak or bubbles. Tisseel was then placed around the anastomosis. A 19-Frisian Kalyan drain was then placed in the pelvis, brought out through the right lateral lower port site, sutured in place with 2-0 silk suture. The abdomen was desufflated. Skin incisions were closed with colt. Abdomen was cleaned and dried. 4 x 4 tape applied. This ended the procedure.
[2020-11-06] MEDS ORDERED: NS 1,000 ML IV ONE (08:15)
--- NOTE | 2020-11-06 08:18 | IPNPDOC ---
Text Note Date of Service The patient was seen on 11/06/20. NOTE No acute events overnight. His pain is controlled. No flatus or BM yet. No uri nation since the hunter came out. Bladder scan was under 200 this am. VSSAF NAD abd - soft, TTP appropriate, dressings c/d/i, drain in RLQ with serosanguinous output labs - below A) 80y/o male PO s/p RA LAR for rectal cancer P) clq diet ambulate IS PT NS bolus increase IVF to 100/hr await return of bowel function Juan Shay DO VS,Sveta, I+O VS, Sveta, I+O Laboratory Tests 11/06/20 05:52 Vital Signs Date Time Temp Pulse Resp B/P (MAP) Pulse Ox O2 Delivery O2 Flow Rate FiO2 11/06/20 06:38 97.7 87 19 111/62 (78) 97 Room Air I&O- Last 24 Hours up to 6 AM 11/06/20 06:00 Intake Total 1490 ml Output Total 430 ml Balance 1060 ml DAVIS SHAY DO Nov 06, 2020 08:18
[2020-11-06] MEDS ORDERED: NS 0.45% 1,000 ML IV ONE (08:35)
[2020-11-06] MEDS: SIMETHICONE 80MG CHEW TAB PO SCH ×4 (08:59→20:03)
[2020-11-06] MEDS: PREPARATION H SUPP (HEMORRHOID) PR SCH ×3 (09:00→20:10)
[2020-11-06] MEDS: METOPROLOL SUCC (TopROL XL) 100MG *XL* TAB PO SCH (09:01)
[2020-11-06] MEDS: ENOXAPARIN 40MG/0.4ML SYRINGE (J1650 PER 10MG) SC SCH (09:03)
--- NOTE | 2020-11-06 13:41 | IPNPDOC ---
Subjective Date Seen The patient was seen on 11/06/20. Subjective Chief Complaint/HPI s/p surgery last night. Pain controlled this am. wake, alert and oriented. No urine output overnight after hunter removal. Fluid bolus given and IVF increased with urine output later in the morning. Objective Physical Examination General Exam: Positive: Alert, Cooperative, No Acute Distress Eye Exam: Positive: PERRLA, Conjunctiva & lids normal ENT Exam: Positive: Atraumatic, Mucous membr. moist/pink Neck Exam: Positive: Supple; Negative: JVD, thyromegaly Chest Exam: Positive: Clear to auscultation, Normal air movement Heart Exam: Positive: Rate Normal, Regular Rhythm, Normal S1, Normal S2; Negative: Murmurs, Rubs Abdomen Exam: Positive: BS Hypoactive, Soft, Tenderness, Other (abdominal drain in place.); Negative: Hepatospenomegaly Extremity Exam: Negative: Clubbing, Cyanosis, Edema Neuro Exam: Positive: Normal Speech, Strength at 5/5 X4 ext Psych Exam: Positive: Memory Intact, Oriented x 3 Assessment /Plan Assessment 80 y/o M with PMH Recently diagnosed in October 2020 invasive colorectal adenocarcinoma, moderately differentiated, was biopsied from a sigmoid mass which presented as rectal bleeding. He planned elective partial colectomy later this month however he redeveloped pro fuse rectal bleeding came to the emergency room on 10/30/20 and was admitted for GIB. His other PMH includes bioprosthetic aortic valve replacement, DM, HLD, Chronic atrial fibrillation s/p multiple cardioversions followed by cardiac ablation in 01/2019, Chronic kidney disease stage 3, Coronary artery disease with a stent in unspecified vessel, 2016. He underwent s/p RA LAR for rectal cancer on 11/05/20 Adenocarcinoma for sigmoid colon s/p resection on 11/05 continue Zosyn. diet as per Dr Shay DM type 2 insulin sliding scale Obesity supportive care HTN metoprolol CAD will restart home meds Plavix and Eliquis when ok with surgeon. Chronic Afib metoprolol will resume home medication Eliquis after surgery when OK with surgeon. CKD stage 3 stable will avoid nephrotoxic meds Plan/VTE VTE Prophylaxis Ordered?: Yes VS, I&O, 24H, Fishbone Vital Signs/I&O Vital Signs Date Time Temp Pulse Resp B/P (MAP) Pulse Ox O2 Delivery O2 Flow Rate FiO2 11/06/20 10:00 98.5 94 20 109/55 (73) 97 Room Air I&O- Last 24 Hours up to 6 AM 11/06/20 06:00 Intake Total 1490 ml Output Total 430 ml Balance 1060 ml Laboratory Data 24H LABS Laboratory Tests 2 11/06/20 05:52: Nucleated Red Blood Cells % (auto) 0.0, Anion Gap 9, Glomerular Filtration Rate 40.0L, Calcium Level 7.7L 11/06/20 11:55: Bedside Glucose (Misc Panel) 201H CBC/BMP Laboratory Tests 11/06/20 05:52 Microbiology Microbiology 11/05/20 Respiratory Virus Panel (PCR) (SUDHIR) - Final, Complete JONATHON BALDWIN MD Nov 06, 2020 13:41
[2020-11-06] MEDS: METOPROLOL SUCC (TopROL XL) 50MG **XL** TAB PO SCH (20:03)
[2020-11-06] MEDS: ONDANSETRON 4MG/2ML VIAL IV PRN (23:16)
[2020-11-07] MEDS: HumaLOG INSULIN (NovoLOG) PER UNIT SC SCH ×5 (00:52→23:47)
[2020-11-07] MEDS: KCL 20MEQ IN D5/0.45NS 1000ML 1,000 ML IV SCH ×3 (01:51→21:19)
[2020-11-07] MEDS: PIPERACILLIN/TAZOBACTAM SOD 3.375 GM in D5W MINI-BAG PLUS 50 ML IV SCH ×4 (01:51→21:18)
[2020-11-07 04:38] VITALS: BP 110/59
[2020-11-07] MEDS: ONDANSETRON 4MG/2ML VIAL IV PRN ×3 (06:04→19:11)
[2020-11-07] MEDS: SIMETHICONE 80MG CHEW TAB PO SCH ×4 (08:29→21:18)
[2020-11-07] MEDS: ENOXAPARIN 40MG/0.4ML SYRINGE (J1650 PER 10MG) SC SCH (08:29)
[2020-11-07] MEDS: METOPROLOL SUCC (TopROL XL) 100MG *XL* TAB PO SCH (08:33)
[2020-11-07] MEDS: PREPARATION H SUPP (HEMORRHOID) PR SCH ×2 (08:33→21:00)
--- NOTE | 2020-11-07 08:44 | IPNPDOC ---
Text Note Date of Service The patient was seen on 11/07/20. NOTE No acute events overnight. His pain is controlled, but he has had lots of nausea. He is passing lots of gas and has had a few small loose BMs also. VSSAF NAD abd - soft, TTP appropriate, dressings c/d/i, drain in RLQ with serosanguinous output A) 80y/o male PO s/p RA LAR for rectal cancer P) clq diet ambulate IS PT will continue with clq diet for today due to nausea amb in [place] OOB to chair Juan Shay DO VS,Fishbone, I+O VS, Fishbone, I+O Vital Signs Date Time Temp Pulse Resp B/P (MAP) Pulse Ox O2 Delivery O2 Flow Rate FiO2 11/07/20 08:33 83 133/77 11/07/20 04:38 98.2 20 97 Room Air I&O- Last 24 Hours up to 6 AM 11/07/20 05:59 Intake Total 2250 ml Output Total 90 ml Balance 2160 ml DAVIS SHAY DO Nov 07, 2020 08:44
--- NOTE | 2020-11-07 13:22 | IPNPDOC ---
Subjective Date Seen The patient was seen on 11/07/20. Subjective Chief Complaint/HPI complains of nausea, had several loose bowel movements last night. Today feels very tired. Pain is controlled Objective Physical Examination General Exam: Positive: Alert, Cooperative, No Acute Distress Eye Exam: Positive: PERRLA, Conjunctiva & lids normal ENT Exam: Positive: Atraumatic, Mucous membr. moist/pink Neck Exam: Positive: Supple; Negative: JVD, thyromegaly Chest Exam: Positive: Clear to auscultation, Normal air movement Heart Exam: Positive: Rate Normal, Regular Rhythm, Normal S1, Normal S2; Negative: Murmurs, Rubs Abdomen Exam: Positive: BS Hypoactive, Soft, Tenderness, Other (abdominal drain in place.); Negative: Hepatospenomegaly Extremity Exam: Negative: Clubbing, Cyanosis, Edema Neuro Exam: Positive: Normal Speech, Strength at 5/5 X4 ext Psych Exam: Positive: Memory Intact, Oriented x 3 Assessment /Plan Assessment 80 y/o M with PMH Recently diagnosed in October 2020 invasive colorectal adenocarcinoma, moderately differentiated, was biopsied from a sigmoid mass which presented as rectal bleeding. He planned elective partial colectomy later this month however he redeveloped pro fuse rectal bleeding came to the emergency room on 10/30/20 and was admitted for GIB. His other PMH includes bioprosthetic aortic valve replacement, DM, HLD, Chronic atrial fibrillation s/p multiple cardioversions followed by cardiac ablation in 01/2019, Chronic kidney disease stage 3, Coronary artery disease with a stent in unspecified vessel, 2017. He underwent s/p RA LAR for rectal cancer on 11/05/20 Adenocarcinoma for sigmoid colon s/p resection on 11/05 continue Zosyn. diet as per Dr Shay DM type 2 insulin sliding scale Obesity supportive care HTN metoprolol CAD will restart home meds Plavix and Eliquis when ok with surgeon. Chronic Afib metoprolol will resume home medication Eliquis after surgery when OK with surgeon. CKD stage 3 stable will avoid nephrotoxic meds Plan/VTE VTE Prophylaxis Ordered?: Yes VS, I&O, 24H, Fishbone Vital Signs/I&O Vital Signs Date Time Temp Pulse Resp B/P (MAP) Pulse Ox O2 Delivery O2 Flow Rate FiO2 11/07/20 08:33 83 133/77 11/07/20 04:38 98.2 20 97 Room Air I&O- Last 24 Hours up to 6 AM 11/07/20 06:00 Intake Total 2220 ml Output Total 90 ml Balance 2130 ml Laboratory Data 24H LABS Laboratory Tests 2 11/06/20 17:15: Bedside Glucose (Misc Panel) 204H 11/07/20 00:45: Bedside Glucose (Misc Panel) 195H 11/07/20 05:52: Bedside Glucose (Misc Panel) 219H 11/07/20 11:36: Bedside Glucose (Misc Panel) 207H Microbiology Microbiology 11/05/20 Respiratory Virus Panel (PCR) (SUDHIR) - Final, Complete JONATHON BALDWIN MD Nov 07, 2020 13:22
[2020-11-07 14:00] VITALS: BP 113/66
[2020-11-07] MEDS: METOPROLOL SUCC (TopROL XL) 50MG **XL** TAB PO SCH (21:18)
[2020-11-07 22:00] VITALS: BP 132/74
[2020-11-07] MEDS ORDERED: METOCLOPRAMIDE INJ 10MG/2ML VIAL (J2765 PER 1) IV ONE (23:25)
[2020-11-08] MEDS: ONDANSETRON 4MG/2ML VIAL IV PRN ×2 (01:34→07:40)
[2020-11-08] MEDS: PIPERACILLIN/TAZOBACTAM SOD 3.375 GM in D5W MINI-BAG PLUS 50 ML IV SCH (01:34)
[2020-11-08 06:00] VITALS: BP 119/71
[2020-11-08] MEDS: METOCLOPRAMIDE INJ 10MG/2ML VIAL (J2765 PER 1) IV SCH ×4 (06:00→23:46)
[2020-11-08 06:20] LABS: HEMATOCRIT 38.3 % (42.0-52.0); HEMOGLOBIN 12.6 g/dl (13.5-17.5); MEAN CORPUSCULAR HEMOGLOBIN 30.5 pg (27.0-33.0); MEAN CORPUSCULAR HGB CONC 32.9 g/dl (32.0-36.5); MEAN CORPUSCULAR VOLUME 92.7 fl (80.0-96.0); PLATELET COUNT, AUTOMATED 195 10^3/uL (150-450); RED BLOOD COUNT 4.13 10^6/uL (4.30-6.10); WHITE BLOOD COUNT 11.7 10^3/uL (4.0-10.0)
[2020-11-08] MEDS: HumaLOG INSULIN (NovoLOG) PER UNIT SC SCH ×4 (06:28→23:47)
[2020-11-08 06:46] LABS: CALCIUM LEVEL 7.8 MG/DL (8.8-10.2); CREATININE FOR GFR 1.95 MG/DL (0.70-1.30); GLOMERULAR FILTRATION RATE 35.5 (>42); POTASSIUM SERUM 3.2 MEQ/L (3.5-5.1)
[2020-11-08] MEDS ORDERED: NS 1,000 ML IV ONE (07:35)
--- NOTE | 2020-11-08 07:35 | IPNPDOC ---
Text Note Date of Service The patient was seen on 11/08/20. NOTE Overnight he had lots of nausea. His pain is controlled. He is having lots of flatus and BMs. VSSAF NAD abd - soft, TTP appropriate, dressings c/d/i, drain in RLQ with serosanguinous output A) 80y/o male PO s/p RA LAR for rectal cancer P) clq diet ambulate IS PT will continue with clq diet for today due to nausea amb in [place] OOB to chair K+ replacement fluid bolus Juan Shay DO VS,Fishbone, I+O VS, Fishbone, I+O Laboratory Tests 11/08/20 05:18 Vital Signs Date Time Temp Pulse Resp B/P (MAP) Pulse Ox O2 Delivery O2 Flow Rate FiO2 11/08/20 06:00 99.4 63 20 119/71 (87) 97 Room Air I&O- Last 24 Hours up to 6 AM 11/08/20 05:59 Intake Total 2450 ml Output Total 551 ml Balance 1899 ml DAVIS SHAY DO Nov 08, 2020 07:35
[2020-11-08] MEDS ORDERED: POTASSIUM CHLORIDE INJ 40 MEQ in NS 1,000 ML IV SCH (07:55)
[2020-11-08] MEDS ORDERED: NORCO, ANEXSIA 5/325MG TABLET (HYDROcodone/ACETAMINOPHEN) PO PRN (07:55)
[2020-11-08] MEDS: SIMETHICONE 80MG CHEW TAB PO SCH ×4 (09:26→20:36)
[2020-11-08] MEDS: PREPARATION H SUPP (HEMORRHOID) PR SCH ×2 (09:27→20:36)
[2020-11-08] MEDS: METOPROLOL SUCC (TopROL XL) 100MG *XL* TAB PO SCH (09:27)
[2020-11-08] MEDS: ENOXAPARIN 40MG/0.4ML SYRINGE (J1650 PER 10MG) SC SCH (09:28)
[2020-11-08] MEDS: KCL 40MEQ in NS 1000ML 1,000 ML IV SCH ×2 (09:56→19:47)
[2020-11-08] MEDS: POTASSIUM CHLORIDE 10 MEQ SR TABLET PO SCH ×2 (09:57→20:36)
--- NOTE | 2020-11-08 11:40 | IPNPDOC ---
Subjective Date Seen The patient was seen on 11/08/20. Subjective Chief Complaint/HPI Continues to feel unwell, very tired, continues to have nausea and diarrhea. No fever or chills, No sob. Objective Physical Examination General Exam: Positive: Alert, Cooperative, No Acute Distress Eye Exam: Positive: PERRLA, Conjunctiva & lids normal ENT Exam: Positive: Atraumatic, Mucous membr. moist/pink Neck Exam: Positive: Supple; Negative: JVD, thyromegaly Chest Exam: Positive: Clear to auscultation, Normal air movement Heart Exam: Positive: Rate Normal, Regular Rhythm, Normal S1, Normal S2; Negative: Murmurs, Rubs Abdomen Exam: Positive: BS Hypoactive, Soft, Tenderness, Other (abdominal drain in place.); Negative: Hepatospenomegaly Extremity Exam: Negative: Clubbing, Cyanosis, Edema Neuro Exam: Positive: Normal Speech, Strength at 5/5 X4 ext Psych Exam: Positive: Memory Intact, Oriented x 3 Assessment /Plan Assessment 80 y/o M with PMH Recently diagnosed in October 2020 invasive colorectal adenocarcinoma, moderately differentiated, was biopsied from a sigmoid mass which presented as rectal bleeding. He planned elective partial colectomy later this month however he redeveloped pro fuse rectal bleeding came to the emergency room on 10/30/20 and was admitted for GIB. His other PMH includes bioprosthetic aortic valve replacement, DM, HLD, Chronic atrial fibrillation s/p multiple cardioversions followed by cardiac ablation in 01/2019, Chronic kidney disease stage 3, Coronary artery disease with a stent in unspecified vessel, 2017. He underwent s/p RA LAR for rectal cancer on 11/05/20 Adenocarcinoma for sigmoid colon s/p Low anterior resection and resection of incarcerated umbilical hernia on 11/05 s/p 5 days of Zosyn. diet as per Dr Laurita POST on CKD 3 having lots of diarrhea. Was also on ketorolac continue IVF. though patient is getting edematous. will continue to monitor. antibiotics have been stopped if worsens will consult nephrology. DM type 2 insulin sliding scale Obesity supportive care HTN metoprolol CAD will restart home meds Plavix and Eliquis when ok with surgeon. Chronic Afib metoprolol will resume home medication Eliquis after surgery when OK with surgeon. Plan/VTE VTE Prophylaxis Ordered?: Yes VS, I&O, 24H, Fishbone Vital Signs/I&O Vital Signs Date Time Temp Pulse Resp B/P (MAP) Pulse Ox O2 Delivery O2 Flow Rate FiO2 11/08/20 09:27 94 121/69 11/08/20 06:00 99.4 20 97 Room Air I&O- Last 24 Hours up to 6 AM 11/08/20 06:00 Intake Total 2770 ml Output Total 551 ml Balance 2219 ml Laboratory Data 24H LABS Laboratory Tests 2 11/07/20 11:36: Bedside Glucose (Misc Panel) 207H 11/07/20 17:30: Bedside Glucose (Misc Panel) 219H 11/07/20 23:40: Bedside Glucose (Misc Panel) 241H 11/08/20 05:18: Nucleated Red Blood Cells % (auto) 0.2H, Anion Gap 10, Glomerular Filtration Rate 35.5L, Calcium Level 7.8L 11/08/20 05:46: Bedside Glucose (Misc Panel) 286H 11/08/20 11:22: Bedside Glucose (Misc Panel) 208H CBC/BMP Laboratory Tests 11/08/20 05:18 Microbiology Microbiology 11/05/20 Respiratory Virus Panel (PCR) (SUDHIR) - Final, Complete JONATHON BALDWIN MD Nov 08, 2020 11:40
[2020-11-08] MEDS: CLOPIDOGREL 75 MG TAB PO SCH (13:34)
[2020-11-08 13:40] VITALS: BP 132/78
[2020-11-08] MEDS: METOPROLOL SUCC (TopROL XL) 50MG **XL** TAB PO SCH (20:36)
[2020-11-08 22:00] VITALS: BP 130/79
[2020-11-09] MEDS: ONDANSETRON 4MG/2ML VIAL IV PRN (03:58)
[2020-11-09] MEDS: KCL 40MEQ in NS 1000ML 1,000 ML IV SCH (04:32)
[2020-11-09 06:00] VITALS: BP 160/75
[2020-11-09] MEDS: METOCLOPRAMIDE INJ 10MG/2ML VIAL (J2765 PER 1) IV SCH ×3 (06:09→18:14)
[2020-11-09] MEDS: HumaLOG INSULIN (NovoLOG) PER UNIT SC SCH ×3 (06:10→18:15)
[2020-11-09 06:51] LABS: HEMATOCRIT 39.3 % (42.0-52.0); HEMOGLOBIN 12.8 g/dl (13.5-17.5); MEAN CORPUSCULAR HEMOGLOBIN 30.5 pg (27.0-33.0); MEAN CORPUSCULAR HGB CONC 32.6 g/dl (32.0-36.5); MEAN CORPUSCULAR VOLUME 93.8 fl (80.0-96.0); PLATELET COUNT, AUTOMATED 210 10^3/uL (150-450); RED BLOOD COUNT 4.19 10^6/uL (4.30-6.10); WHITE BLOOD COUNT 15.8 10^3/uL (4.0-10.0)
[2020-11-09 07:21] LABS: CALCIUM LEVEL 7.8 MG/DL (8.8-10.2); CREATININE FOR GFR 1.97 MG/DL (0.70-1.30); GLOMERULAR FILTRATION RATE 35.1 (>42); POTASSIUM SERUM 4.3 MEQ/L (3.5-5.1)
--- NOTE | 2020-11-09 08:29 | IPNPDOC ---
Text Note Date of Service The patient was seen on 11/09/20. NOTE Overnight his nausea has improved some, but he is still not urinating much or ambulating. His pain is controlled. He is having lots of flatus and BMs. VSSAF NAD abd - soft, TTP appropriate, dressings c/d/i, drain in RLQ with serosanguinous output A) 80y/o male PO s/p RA LAR for rectal cancer with new leukocytosis and MYA P) clq diet ambulate IS PT will continue with clq diet for today due to nausea and leukocytosis amb in [place] OOB to chair check xray for pneumonia and ileus stool for c.diff Juan Shay DO VS,Fishbone, I+O VS, Fishbone, I+O Laboratory Tests 11/09/20 06:11 Vital Signs Date Time Temp Pulse Resp B/P (MAP) Pulse Ox O2 Delivery O2 Flow Rate FiO2 11/09/20 06:00 97.8 64 20 160/75 (103) 97 Room Air l I&O- Last 24 Hours up to 6 AM 11/09/20 06:00 Intake Total 2690 ml Output Total 100 ml Balance 2590 ml DAVIS SHAY DO Nov 09, 2020 08:29
[2020-11-09] MEDS: PREPARATION H SUPP (HEMORRHOID) PR SCH ×2 (09:00→20:11)
[2020-11-09 09:51] LABS: CLOSTRIDIUM DIFFICILE PCR NEGATIVE (NEGATIVE)
--- NOTE | 2020-11-09 10:07 | REP ---
INDICATION: post-op leukocytosis COMPARISON: 10/30/2020 TECHNIQUE: Upright view of the chest with supine and upright views of the abdomen and pelvis. FINDINGS: Frontal upright view of the chest demonstrates stable cardiomegaly with aortic valve repair. Loop recorder overlies the left lower lung zone. No free air below diaphragm to suspect pneumoperitoneum. Supine and upright views of the abdomen and pelvis demonstrate postsurgical changes including drainage catheter in the right lower quadrant. The bowel gas pattern demonstrates few nonspecific air-fluid levels with nonspecific air-filled loops of small and large bowel. Differential diagnosis may include a mild postsurgical ileus and less likely obstruction. Skeletal structures are stable. IMPRESSION: 1. Postsurgical changes to the abdomen and pelvis. 2. Bowel gas pattern is relatively nonspecific as described above. Findings likely represent a mild postsurgical ileus and less likely obstruction. <Electronically signed by Velasquez Arroyo > 11/09/20 [id number]
[2020-11-09] MEDS: ENOXAPARIN 40MG/0.4ML SYRINGE (J1650 PER 10MG) SC SCH (10:28)
[2020-11-09] MEDS: SIMETHICONE 80MG CHEW TAB PO SCH ×4 (10:29→20:11)
[2020-11-09] MEDS: METOPROLOL SUCC (TopROL XL) 100MG *XL* TAB PO SCH (10:29)
[2020-11-09] MEDS: CLOPIDOGREL 75 MG TAB PO SCH (10:29)
--- NOTE | 2020-11-09 11:29 | IPNPDOC ---
Subjective Date Seen The patient was seen on 11/09/20. Subjective Chief Complaint/HPI Does not feel good. Very tired. No motivation to get up. Continues to have diarrhea and persistent nausea. No appetite. No abdominal pain. Urine output low. No fever or chills. C diff negative. Objective Physical Examination General Exam: Positive: Alert, Cooperative, No Acute Distress Eye Exam: Positive: PERRLA, Conjunctiva & lids normal ENT Exam: Positive: Atraumatic, Mucous membr. moist/pink Neck Exam: Positive: Supple; Negative: JVD, thyromegaly Chest Exam: Positive: Clear to auscultation, Normal air movement Heart Exam: Positive: Rate Normal, Regular Rhythm, Normal S1, Normal S2; Negative: Murmurs, Rubs Abdomen Exam: Positive: BS Hyperactive, Soft, Tenderness; Negative: Hepatospenomegaly Extremity Exam: Positive: Edema (1+); Negative: Clubbing, Cyanosis Neuro Exam: Positive: Normal Speech, Strength at 5/5 X4 ext Psych Exam: Positive: Memory Intact, Oriented x 3 Assessment /Plan Assessment 80 y/o M with PMH Recently diagnosed in October 2020 invasive colorectal adenocarcinoma, moderately differentiated, was biopsied from a sigmoid mass which presented as rectal bleeding. He planned elective partial colectomy later this month however he redeveloped pro fuse rectal bleeding came to the emergency room on 10/30/20 and was admitted for profuse rectal bleeding. His other PMH includes bioprosthetic aortic valve replacement, DM, HLD, Chronic atrial fibrillation s/p multiple cardioversions followed by cardiac ablation in 01/2019, Chronic kidney disease stage 3, Coronary artery disease with a stent in unspecified vessel, 2016. He underwent s/p LAR for rectal cancer on 11/05/20. Adenocarcinoma for sigmoid colon s/p Low anterior resection and resection of incarcerated umbilical hernia on 11/05 s/p 5 days of Zosyn. diet as per Dr Shay Post surgical ileus Abd xray noted SEJAL on CKD 3 having lots of diarrhea. Was also on ketorolac antibiotics have been stopped on 11/08/20 will consult nephrology. DM type 2 insulin sliding scale Obesity supportive care HTN metoprolol CAD s/p stents restarted Plavix will continue to hold eliquis. Chronic Afib Has loop recorder in place. H/o cardiac ablation. metoprolol will resume home medication Eliquis after surgery when OK with surgeon. s/p aortic valve replacement. Plan/VTE VTE Prophylaxis Ordered?: Yes VS, I&O, 24H, Fishbone Vital Signs/I&O Vital Signs Date Time Temp Pulse Resp B/P (MAP) Pulse Ox O2 Delivery O2 Flow Rate FiO2 11/09/20 10:29 64 160/75 11/09/20 06:00 97.8 20 97 Room Air I&O- Last 24 Hours up to 6 AM 11/09/20 06:00 Intake Total 2690 ml Output Total 100 ml Balance 2590 ml Laboratory Data 24H LABS Laboratory Tests 2 11/08/20 17:33: Bedside Glucose (Misc Panel) 175H 11/09/20 06:11: Nucleated Red Blood Cells % (auto) 0.0, Anion Gap 11, Glomerular Filtration Rate 35.1L, Calcium Level 7.8L 11/09/20 08:45: Clostridium difficile [id number] PRESUMPTIVE NEGATIVE, Clostridium difficile Toxin (PCR) NEGATIVE CBC/BMP Laboratory Tests 11/09/20 06:11 Microbiology Microbiology 11/05/20 Respiratory Virus Panel (PCR) (SUDHIR) - Final, Complete JONATHON BALDWIN MD Nov 09, 2020 11:29
[2020-11-09 14:00] VITALS: BP 144/92
[2020-11-09] MEDS: SODIUM BICARBONATE 100 MEQ, POTASSIUM CHLORIDE INJ 20 MEQ in D5W 1,000 ML IV SCH (17:13)
[2020-11-09 20:05] VITALS: BP 136/81
[2020-11-09] MEDS: METOPROLOL SUCC (TopROL XL) 50MG **XL** TAB PO SCH (20:11)
--- NOTE | 2020-11-09 20:26 | CR ---
NEPHROLOGY CONSULTATION DATE: 11/09/2020 REQUESTING PHYSICIAN: Dr. Emma Corona CONSULTING PHYSICIAN: Dr. Arsh Dwyer REASON FOR CONSULTATION: Management of acute renal failure and metabolic acidosis. CHIEF COMPLAINT: The patient was originally admitted on October 31, 2020 because of rectal bleeding. HISTORY OF PRESENT ILLNESS: Hugo Monson is a 80-year-old male with a past medical history of bioprosthetic aortic valve, type 2 diabetic, chronic atrial fibrillation, chronic kidney disease stage 3, with a baseline creatinine around 1.5 as per previous records. He presented on October 31, 2020 with rectal bleeding. He was found to have rectal cancer. He is status post low anterior resection. He has been having loose stools now and the patient has developed acute renal failure with a creatinine of 1.9 and he also had metabolic acidosis with a bicarbonate of 13 on the labs. Nephrology Service was called for further help in the management of this patient. I saw and evaluated the patient today morning at the bedside. He was able to provide me with the history. He does report a decreased appetite and he reports loose stools. Other than that, he denies any active complaints. PAST MEDICAL HISTORY: The patient's past medical history is significant for: 1. Chronic kidney disease stage 3. 2. History of aortic valve replacement. 3. Left ventricular ejection fraction of 60-65%. 4. Type 2 diabetes. 5. Coronary artery disease, status post stent. 6. Chronic diastolic congestive heart failure. PAST SURGICAL HISTORY: The patient's past surgical history is significant for: 1. Status post aortic valve replacement. 2. Coronary artery disease with stent placement. 3. Appendectomy. 4. Tonsillectomy. 5. Cardioversions. 6. Ablation procedures in the past. 7. Recently had low anterior resection for rectal cancer. ALLERGIES: He is allergic to sulfa. FAMILY HISTORY: No significant family history of end-stage renal disease. SOCIAL HISTORY: The patient spends the winter time in [place] and he spends the summer in [facility]. He is a denies any illicit drug abuse or alcohol abuse and he is a former smoker, and he quit in 1973. REVIEW OF SYSTEMS: Constitutional: He denies any fevers or chills. Eyes: He denies any blurry vision, double vision. ENT: He denies any dysphagia or odynophagia. Cardiovascular: He denies any chest pain or palpitations. Respiratory: He denies any shortness of breath. Gastrointestinal: He reports recent abdominal surgery and reports diarrhea. Genitourinary: He reports decreased urine output. Musculoskeletal: He denies any muscle aches and pains. Skin: He denies any rashes or ulcers. DESIGN ENGINEERING TECHNICIAN: He denies any strokes seizures or weakness. Hematological/Oncological: He denies any easy bleeding at this time. All other review of systems is negative. PHYSICAL EXAMINATION: GENERAL APPEARANCE: The patient is awake, alert, oriented x3, laying in bed, obese body habitus. VITAL SIGNS: Temperature is 97.5 degrees Fahrenheit, blood pressure 144/92, pulse is 104, respiratory rate of 20, saturating 97% on room air. INTAKE AND OUTPUT: Urine output recorded so far as 300 mL. HEAD AND NECK: Extraocular muscles intact. Pupils are equally round and reactive to light. Mucous membranes are moist. Neck is supple. There is no jugular venous distention. CARDIOVASCULAR: S1, S2, regular rate. EXTREMITIES: 1+ edema of the bilateral lower extremities. RESPIRATORY: Chest is clear to auscultation bilaterally. Bilaterally currently no rales or rhonchi. ABDOMEN: Soft, obese, positive bowel sounds. Abdominal colt are noted from recent surgery. MUSCULOSKELETAL: No clubbing, no cyanosis. Pulses are 2+. DESIGN ENGINEERING TECHNICIAN: No focal deficits. Power is 5/5 in all extremities. LAB REVIEW: CBC showed a WBC count of 15.8, hemoglobin 12.8, platelet count 210. BMP showed sodium of 145, potassium 4.3, chloride 121, bicarbonate is 13, BUN 19, creatinine is 1.9. Sugar 204, calcium is 7.8. IMAGING: An abdominal x-ray was done today morning which showed post surgical changes. Bowel gas pattern is relatively nonspecific. Likely represents post surgical ileus and less like obstruction. CURRENT INPATIENT MEDICATIONS: The patient's medications were all reviewed by myself. He was getting normal saline with KCL which I have stopped now. I have started the patient on d5w with 100 mEq of bicarbonate and IV potassium chloride 20 mEq. He is on Tylenol p.r.n., Plavix 75 mg p.o. daily, Lovenox 40 mg subcutaneously daily, Reglan 10 mg IV q. 6 hours p.r.n., Metoprolol XL 50 mg q. h.s. and 100 mg in the morning, Zofran p.r.n., Phenylephrine suppositories and Mylicon. ASSESSMENT AND PLAN: 1. Acute non oliguric renal failure I am going to have the Cedeno catheter placed for accurate monitoring of urine output. The patient is having diarrhea. He is dehydrated. I am starting the patient on bicarbonate containing fluids. 2. Hyperchloremic metabolic acidosis it is secondary to diarrhea. The patient is getting normal saline which makes hyperchloremic acidosis worse. As mentioned above, I have started the patient on IV bicarbonate containing fluid along with some potassium. If needed, the patient will be started on oral Bicitra as well. 3. Adenocarcinoma of the sigmoid colon, status post a low anterior resection and resection of incarcerated umbilical hernia 4 days ago - The patient has finished IV Zosyn. Surgical Service is on board. Diet is as per Surgery. The patient is having diarrhea. Stool for C-diff was reportedly negative. 4. Diabetes mellitus type 2 - The patient is on insulin sliding scale which will continue because the patient is now getting dextrose containing fluids. Thank you for involving me in the care of this patient. I shall be happy to follow the patient along with you tomorrow morning.
[2020-11-10] MEDS: SODIUM BICARBONATE 100 MEQ, POTASSIUM CHLORIDE INJ 20 MEQ in D5W 1,000 ML IV SCH ×3 (00:24→12:02)
[2020-11-10] MEDS: METOCLOPRAMIDE INJ 10MG/2ML VIAL (J2765 PER 1) IV SCH ×4 (00:24→18:17)
[2020-11-10] MEDS: HumaLOG INSULIN (NovoLOG) PER UNIT SC SCH ×4 (00:25→18:17)
[2020-11-10 05:05] VITALS: BP 136/84
[2020-11-10 06:23] LABS: HEMOGLOBIN 11.7 g/dl (13.5-17.5); MEAN CORPUSCULAR HEMOGLOBIN 30.2 pg (27.0-33.0); MEAN CORPUSCULAR HGB CONC 32.5 g/dl (32.0-36.5); PLATELET COUNT, AUTOMATED 202 10^3/uL (150-450); RED BLOOD COUNT 3.87 10^6/uL (4.30-6.10); WHITE BLOOD COUNT 13.3 10^3/uL (4.0-10.0)
[2020-11-10 06:49] LABS: CALCIUM LEVEL 7.4 MG/DL (8.8-10.2); CREATININE FOR GFR 1.81 MG/DL (0.70-1.30); GLOMERULAR FILTRATION RATE 38.7 (>42); POTASSIUM SERUM 3.3 MEQ/L (3.5-5.1)
--- NOTE | 2020-11-10 08:36 | IPNPDOC ---
Text Note Date of Service The patient was seen on 11/10/20. NOTE Overnight his nausea has improved. He is still not ambulating. His pain is con trolled. He is having lots of flatus and BMs. Urine output has improved, and a hunter is in place. VSSAF NAD abd - soft, TTP appropriate, incisions c/d/i, drain in RLQ with serosanguinous output Stool - c.diff neg A) 80y/o male PO s/p RA LAR for rectal cancer with new leukocytosis and MYA P) reg diet ambulate IS PT amb in [place] OOB to chair Juan Shay DO VS,Fishbone, I+O VS, Fishbone, I+O Laboratory Tests 11/10/20 05:48 Vital Signs Date Time Temp Pulse Resp B/P (MAP) Pulse Ox O2 Delivery O2 Flow Rate FiO2 11/10/20 05:05 98.3 89 18 136/84 (101) 97 Room Air I&O- Last 24 Hours up to 6 AM 11/10/20 06:00 Intake Total 1135 ml Output Total 1125 ml Balance 10 ml DAVIS SHAY DO Nov 10, 2020 08:36
[2020-11-10] MEDS: PREPARATION H SUPP (HEMORRHOID) PR SCH ×2 (09:00→22:01)
[2020-11-10] MEDS ORDERED: POTASSIUM CHLORIDE 10 MEQ SR TABLET PO SCH (09:00)
[2020-11-10] MEDS: METOPROLOL SUCC (TopROL XL) 100MG *XL* TAB PO SCH (09:35)
[2020-11-10] MEDS: SIMETHICONE 80MG CHEW TAB PO SCH ×4 (09:35→22:00)
[2020-11-10] MEDS: CLOPIDOGREL 75 MG TAB PO SCH (09:35)
[2020-11-10] MEDS: ENOXAPARIN 40MG/0.4ML SYRINGE (J1650 PER 10MG) SC SCH (09:50)
--- NOTE | 2020-11-10 10:49 | IPNPDOC ---
Subjective Date Seen The patient was seen on 11/10/20. Subjective Chief Complaint/HPI No acute events overnight. Remains about the same. Reports feels slightly better, No nausea. Continues to have some diarrhea but less. Objective Physical Examination General Exam: Positive: Alert, Cooperative, No Acute Distress Eye Exam: Positive: PERRLA, Conjunctiva & lids normal ENT Exam: Positive: Atraumatic, Mucous membr. moist/pink Neck Exam: Positive: Supple; Negative: JVD, thyromegaly Chest Exam: Positive: Clear to auscultation, Normal air movement Heart Exam: Positive: Rate Normal, Regular Rhythm, Normal S1, Normal S2; Negative: Murmurs, Rubs Abdomen Exam: Positive: BS Hyperactive, Soft, Tenderness, Other (abdominal incisions healing well); Negative: Hepatospenomegaly Extremity Exam: Positive: Edema (1+); Negative: Clubbing, Cyanosis Neuro Exam: Positive: Normal Speech, Strength at 5/5 X4 ext Psych Exam: Positive: Memory Intact, Oriented x 3 Assessment /Plan Assessment 80 y/o M with PMH Recently diagnosed in October 2020 invasive colorectal adenocarcinoma, moderately differentiated, was biopsied from a sigmoid mass which presented as rectal bleeding. He planned elective partial colectomy later this month however he redeveloped pro fuse rectal bleeding came to the emergency room on 10/30/20 and was admitted for profuse rectal bleeding. His other PMH includes bioprosthetic aortic valve replacement, DM, HLD, Chronic atrial fibrillation s/p multiple cardioversions followed by cardiac ablation in 01/2019, Chronic kidney disease stage 3, Coronary artery disease with a stent in unspecified vessel, 2017. He underwent s/p LAR for rectal cancer on 11/05/20. Adenocarcinoma for sigmoid colon s/p Low anterior resection and resection of incarcerated umbilical hernia on 11/05 with post surgical ileus. Now resolving. s/p 5 days of Zosyn. diet as per Dr Shay SEJAL on CKD 3/ metabolic acidosis. having lots of diarrhea. Was also on ketorolac C diff negative antibiotics have been stopped on 11/08/20 Appreciate nephrology input. started on Bicarb gtt. DM type 2 insulin sliding scale Obesity supportive care HTN metoprolol CAD s/p stents restarted Plavix will continue to hold eliquis. Chronic Afib Has loop recorder in place. H/o cardiac ablation. metoprolol will resume home medication Eliquis when OK with surgeon. s/p aortic valve replacement. Plan/VTE VTE Prophylaxis Ordered?: Yes VS, I&O, 24H, Fishbone Vital Signs/I&O Vital Signs Date Time Temp Pulse Resp B/P (MAP) Pulse Ox O2 Delivery O2 Flow Rate FiO2 11/10/20 05:05 98.3 89 18 136/84 (101) 97 Room Air I&O- Last 24 Hours up to 6 AM 11/10/20 06:00 Intake Total 1135 ml Output Total 1125 ml Balance 10 ml Laboratory Data 24H LABS Laboratory Tests 2 11/09/20 08:45: Clostridium difficile [id number] PRESUMPTIVE NEGATIVE, Clostridium difficile Toxin (PCR) NEGATIVE 11/09/20 11:52: Bedside Glucose (Misc Panel) 179H 11/10/20 00:15: Bedside Glucose (Misc Panel) 253H 11/10/20 05:48: Nucleated Red Blood Cells % (auto) 0.0, Anion Gap 9, Glomerular Filtration Rate 38.7L, Calcium Level 7.4L CBC/BMP Laboratory Tests 11/10/20 05:48 Microbiology Microbiology 11/05/20 Respiratory Virus Panel (PCR) (SUDHIR) - Final, Complete JONATHON BALDWIN MD Nov 10, 2020 07:42
--- NOTE | 2020-11-10 12:20 | IPN ---
NEPHROLOGY PROGRESS NOTE DATE: 11/10/2020 SUBJECTIVE: The patient is seen sitting out of bed to the chair. He denies any complaints. He states his diarrhea is improving, reports he did not have any bowel movement this morning. He has no nausea or vomiting. He has been advanced to a regular diet and continues on sodium bicarbonate containing IV fluids. OBJECTIVE: PHYSICAL EXAMINATION: VITAL SIGNS: Temperature 98.3, pulse 89, respiratory rate 18, blood pressure 136/84, saturating 97% on room air. INTAKE AND OUTPUT: Intake yesterday was 1.1 liter. Output was recorded as 900 mL of urine and three incontinent bowel movements. GENERAL APPEARANCE: The patient is seen sitting out of bed to the chair, awake, alert and cooperative and in no distress, oriented x3. HEENT: The extraocular muscles are intact. Pupils are equal, round and reactive to light. Tongue is moist. NECK: Supple. Jugular veins are not elevated. HEART: Regular, S1, S2. There is trace leg edema. LUNGS: Symmetric air entry. No crackles or rales. He is comfortable on room air. ABDOMEN: Abdominal incisions with colt and there is a right lower abdomen MARIA L drain with serosanguinous fluid. GENITOURINARY: Cedeno catheter. NEUROLOGICAL: There are no focal deficits. He moves all four extremities on command. EXTREMITIES: No clubbing or cyanosis. There is trace leg edema. LABORATORY STUDIES: Sodium 140, potassium 3.3, bicarbonate 16, chloride 115, BUN 27, creatinine 1.8, down from 1.9 the past 2 days. Hemoglobin 11.7, white count 13.3. CURRENT INPATIENT MEDICATIONS: The patient continues on d5w with 100 mEq of sodium bicarbonate and 20 mEq of potassium chloride. He was receiving at a rate of 150 mL per hour and I decreased to 80 mL per hour. The Primary Team started him on potassium chloride 40 mEq p.o. daily. The remainder of medications are unchanged as compared to yesterday. PROBLEMS: 1. Chronic kidney disease stage 3b with mild acute non oliguric kidney injury in the setting of diarrhea - The patient is doing well with IV fluids and he reports the diarrhea has lessened. He has been advanced to a regular diet I note, and I am cutting the rate of the fluids to 80 mL an hour. 2. Hyperchloremic metabolic acidosis secondary to diarrhea - The patient is on d5w with 100 mEq of sodium bicarbonate and 20 mEq of potassium chloride. Continue the same fluid at a decreased rate of 80 mL an hour. His bicarbonate level is improving slowly. 3. Hypokalemia - The patient is receiving potassium supplementation with the IV fluids and the Primary Team also started him on oral potassium chloride. 4. Adenocarcinoma status post lower anterior resection the patient continues with a drain in the right lower quadrant. His white count is improving. I note his diet has been advanced and he is status post 5 days of Zosyn. 5. Hypertension, essential - blood pressures are well controlled with Metoprolol alone.
[2020-11-10 14:00] VITALS: BP 140/85
[2020-11-10] MEDS: CEPACOL LOZENGE PO PRN (18:17)
[2020-11-10] MEDS ORDERED: FUROSEMIDE 40MG/4ML VIAL (J1940) IV ONE (18:50)
[2020-11-10] MEDS ORDERED: SODIUM BICARBONATE 100 MEQ in D5W 1,000 ML IV SCH (20:00)
[2020-11-10 21:56] VITALS: BP 136/76
[2020-11-10] MEDS: METOPROLOL SUCC (TopROL XL) 50MG **XL** TAB PO SCH (22:01)
[2020-11-11] MEDS: HumaLOG INSULIN (NovoLOG) PER UNIT SC SCH ×4 (00:25→18:33)
[2020-11-11] MEDS: CEPACOL LOZENGE PO PRN ×2 (02:39→05:46)
[2020-11-11] MEDS ORDERED: guaiFENesin SYRUP 200 MG/10 ML UDC PO ONE (05:00)
[2020-11-11] MEDS: METOCLOPRAMIDE INJ 10MG/2ML VIAL (J2765 PER 1) IV SCH ×4 (05:46→18:32)
[2020-11-11 05:53] VITALS: BP 111/68
[2020-11-11 06:33] LABS: HEMATOCRIT 35.1 % (42.0-52.0); HEMOGLOBIN 11.8 g/dl (13.5-17.5); MEAN CORPUSCULAR HEMOGLOBIN 30.8 pg (27.0-33.0); MEAN CORPUSCULAR HGB CONC 33.6 g/dl (32.0-36.5); MEAN CORPUSCULAR VOLUME 91.6 fl (80.0-96.0); PLATELET COUNT, AUTOMATED 213 10^3/uL (150-450); RED BLOOD COUNT 3.83 10^6/uL (4.30-6.10); WHITE BLOOD COUNT 8.8 10^3/uL (4.0-10.0)
[2020-11-11 06:57] LABS: CALCIUM LEVEL 7.6 MG/DL (8.8-10.2); CREATININE FOR GFR 1.89 MG/DL (0.70-1.30); GLOMERULAR FILTRATION RATE 36.8 (>42); POTASSIUM SERUM 2.8 MEQ/L (3.5-5.1)
[2020-11-11 07:59] LABS: ABG BASE EXCESS -4.6 (-2.0-2.0); ABG HCO3 17.9 MEQ/L (22.0-26.0); ABG O2 SATURATION 95.8 % (95.0-99.0); ABG PARTIAL PRESSURE CO2 26.4 mmHg (35.0-45.0); ABG PARTIAL PRESSURE O2 76.1 mmHg (75.0-100.0); ABG STANDARD HCO3 20.6 MEQ/L (22.0-26.0); ABG TOTAL CO2 18.7 MEQ/L (23.0-31.0); ABG pH (ARTERIAL) 7.449 UNITS (7.350-7.450)
[2020-11-11] MEDS: POTASSIUM CHLORIDE 10 MEQ SR TABLET PO SCH ×4 (08:10→11:58)
[2020-11-11 08:14] LABS: CK-MB VALUE MASS < 1.0 NG/ML (<3.6); CPK CREATINE PHOSPHOKINASE 37 U/L (39-308); NT-PRO BNP 2855 PG/ML (<450); TROPONIN I 0.02 NG/ML (< 0.10)
[2020-11-11] MEDS: ONDANSETRON 4MG/2ML VIAL IV PRN (08:18)
[2020-11-11] MEDS ORDERED: AMIODARONE HCL 150 MG in IV 1 EA IV STA ×2 (08:21→08:55)
--- NOTE | 2020-11-11 08:32 | REP ---
INDICATION: sob. COMPARISON: 11/09/2020. TECHNIQUE: Single portable AP view of the chest was performed. FINDINGS: There is left lower lobe infiltrate. The right lung is clear. Cardiomegaly is again noted as well as calcification of the thoracic aorta.Mediastinal silhouette is unchanged. There is been prior aortic valve repair. IMPRESSION: Left lower lobe infiltrate. <Electronically signed by Cm Dhaliwal > 11/11/20 0828
--- NOTE | 2020-11-11 08:32 | IPNPDOC ---
Text Note Date of Service The patient was seen on 11/11/20. NOTE Overnight his breathing has decreased, and there is concern about CHF exacerba tion. He is being transferred to PCU. He is still not ambulating. His pain is controlled. He is having lots of flatus and BMs. Urine output has improved, and a hunter is in place. VSSAF NAD abd - soft, TTP appropriate, incisions c/d/i, drain in RLQ with serosanguinous output Stool - c.diff neg A) 80y/o male PO s/p RA LAR for rectal cancer with new leukocytosis and MYA ARF CHF P) reg diet ambulate IS PT OOB to chair d/c drain medical management Juan Shay DO VS,Sveta, I+O VS, Sveta, I+O Laboratory Tests 11/11/20 06:00 Vital Signs Date Time Temp Pulse Resp B/P (MAP) Pulse Ox O2 Delivery O2 Flow Rate FiO2 11/11/20 07:55 6.0 11/11/20 05:53 97.9 109 22 111/68 (82) 93 Nasal Cannula I&O- Last 24 Hours up to 6 AM 11/11/20 06:00 Intake Total 1350 ml Output Total 2635 ml Balance -1285 ml DAVIS SHAY DO Nov 11, 2020 08:32
[2020-11-11] MEDS: ENOXAPARIN 40MG/0.4ML SYRINGE (J1650 PER 10MG) SC SCH (09:01)
[2020-11-11] MEDS: SIMETHICONE 80MG CHEW TAB PO SCH ×4 (09:03→21:51)
[2020-11-11] MEDS: CLOPIDOGREL 75 MG TAB PO SCH (09:03)
[2020-11-11] MEDS: atenoloL 50 MG TAB PO SCH ×2 (09:03→21:00)
[2020-11-11 09:04] VITALS: BP 113/57
[2020-11-11] MEDS ORDERED: LEVALBUTEROL 1.25 MG/0.5 ML CONCENTRATE NEB INH PRN (09:30)
[2020-11-11] MEDS: PREPARATION H SUPP (HEMORRHOID) PR SCH ×2 (09:57→21:00)
[2020-11-11 11:32] VITALS: BP 96/64
[2020-11-11] MEDS ORDERED: DIGOXIN INJ 0.5 MG/2 ML AMP (J1160) IV STA (11:44)
[2020-11-11] MEDS: PIPERACILLIN/TAZOBACTAM SOD 3.375 GM in D5W MINI-BAG PLUS 50 ML IV SCH ×3 (11:59→22:28)
[2020-11-11] MEDS ORDERED: AMIODARONE HCL 360 MG in IV 1 EA IV SCH (12:00)
[2020-11-11] MEDS: MIDODRINE 5 MG TAB PO SCH ×2 (12:38→17:03)
--- NOTE | 2020-11-11 12:58 | IPN ---
PROGRESS NOTE DATE: 11/11/2020 SUBJECTIVE: The patient has had increasing respiratory distress now requiring five liters of oxygen, still on IV fluids with bicarbonate drip, creatinine is improving, urine output overnight 1.46 liters, since midnight 1.4 liters. Weight from November 01 is 124 kg from previous weight on admission on 10/30 at 127.27 kilos. Patient complains of shortness of breath, slight cough productive of white sputum without fever or chills. No nausea or vomiting, palpitations, lightheadedness or dizziness. He was noted to have atrial fibrillation with RVR, rate of 145, transferred to PCU emergently for rate control. Blood pressure was 111/68, patient was given IV amiodarone, atenolol 100 mg this morning and started on Zosyn and Doxycycline. MRSA screen is still pending. Respiratory panel is negative for Coronavirus. OBJECTIVE: VITAL SIGNS: Temperature is 98, pulse is 133 to 145, irregularly irregular, respiratory rate is 24, blood pressure is 113/57, 96% on five liters nasal cannula. GENERAL: The patient is in mild distress, seven to eight word conversational dyspnea. HEENT: Face is symmetric. Tongue is midline. Dry mucous membranes. NECK: No JVD or thyromegaly. No cervical lymphadenopathy. LUNGS: Bilateral rhonchi. Diminished breath sounds. HEART: S1 and S2, irregularly irregular and tachycardic. ABDOMEN: Soft, nontender and nondistended. Positive bowel sounds x4 quadrants. EXTREMITIES: No cyanosis or clubbing. Positive 1+ pitting edema bilaterally. INPUT AND OUTPUT: Reviewed. LABORATORY DATA: Microbiology and imaging studies reviewed. ASSESSMENT AND PLAN: This is a 80-year-old male with a history of chronic atrial fibrillation, invasive colorectal adenocarcinoma diagnosed in October 2020, biopsied from a sigmoid mass with rectal bleeding. Plan for partial colectomy later this month, presented with acute lower GI bleed, needing RBC transfusion. Patient had a prior history of cardioversion and ablation in 2019 for atrial fibrillation, has chronic kidney disease Stage III, and a coronary artery stent in 2017 and had LAR for rectal cancer in 11/05/2020. Active issues are as follows: 1. Chronic atrial fibrillation with rapid ventricular rate, transferred to PCU for emergent rate control due to soft blood pressure. Patient was given one dose of IV amiodarone 150 mg and continued on atenolol 100 b.i.d., change from his metoprolol 100 daily and 50 q.h.s. If patient's blood pressure is adequate may continue to give beta blockade; if blood pressure has mean arterial pressure less than 150 patient my need an amiodarone intravenous drip. The patient would be at risk for Digoxin toxicity in light of his renal dysfunction but if needed can give 0.125 IV dose. 2. Acute on chronic renal failure Stage III, managed by Nephrology, currently on a sodium bicarbonate drip with low potassium. Patient has been given potassium tablets q. 1 hourly, continued consultation with Nephrology is managing fluid balance and renal failure. Strict I and O's and daily weights. 3. New left lower lobe pneumonia, hospital acquired, MRSA screen ordered. Physical Therapy is on Zosyn and Doxycycline, if positive MRSA doxycycline should be sufficient. Obtain a sputum culture if possible. Urine legionella and urine streptococcal antigen and sputum culture as well as two sets of blood culture ordered. Respiratory panel was negative on 11/05/2020. 4. History of CAD stent, will monitor for worsening shortness of breath, cardiac markers q. 6 hourly if patient complains of chest discomfort. 5. Metabolic acidosis, resolved with IV bicarbonate drip secondary to acute kidney injury on chronic kidney disease, currently stable. 6. Obesity complicating care. 7. Type 2 diabetes, on insulin sliding scale. 8. Hypertension, currently on atenolol for better rate control. 9. status post aortic valve replacement. 10. Acute hypoxic respiratory failure due to health care associated pneumonia. keep o2 sat >90%. on iv zosyn and doxycycline. checking mrsa screen. xopenex q4hrs. and j3cadjo sob. held ivfluids. DISPOSITION: Patient has been transferred emergently to PCU today with RVR for rate control. BARRETT
[2020-11-11] MEDS ORDERED: FUROSEMIDE 20MG/2ML VIAL (J1940) IV ONE (13:00)
[2020-11-11] MEDS: LEVALBUTEROL 1.25 MG/0.5 ML CONCENTRATE NEB INH SCH ×2 (13:06→20:44)
[2020-11-11] MEDS: DOXYCYCLINE HYCLATE 100 MG in D5W MINI-BAG PLUS 100 ML IV SCH (13:28)
[2020-11-11 15:17] LABS: CALCIUM LEVEL 7.5 MG/DL (8.8-10.2); CREATININE FOR GFR 2.41 MG/DL (0.70-1.30); GLOMERULAR FILTRATION RATE 27.8 (>42); POTASSIUM SERUM 3.4 MEQ/L (3.5-5.1)
[2020-11-11] MEDS ORDERED: ERTAPENEM 1GM VIAL(INVanz) (J1335 PER 500MG) ONE (15:17)
[2020-11-11 15:18] VITALS: BP 92/61
--- NOTE | 2020-11-11 15:37 | CR ---
CONSULTATION DATE: 10/30/2020 CHIEF COMPLAINT: Rectal bleeding, recent diagnosis of rectal cancer. BRIEF HISTORY OF PRESENT ILLNESS: The patient is a 80-year-old male who was recently admitted for a large bowel obstruction and essentially underwent evaluation at that time with a colonoscopy which was incomplete because of poor prep but revealed a low-lying cancer. The question is distance of cancer from the anus. At this point, I am unsure given the CT scan findings, there is some thickening in the perianal area and dilated colon proximal to this, however I am not seeing the abnormality on the most recent CT scan. We see dilated colon extending with a very tortuous sigmoid colon that goes all the way down into what appears the rectum and it is hard to tell at that point when it gets near the sacrum and coccyx but then there is thickening distal to the coccyx. Once again, I am not sure what the abnormality was seen on the colonoscopy but at this point I would recommend that we will discuss the issue with Dr. Shay when he is available tomorrow. In any case, I am asked to see the patient for recommendations here tonight. The patient has been on anticoagulation for his cardiac issues and has had some rectal bleeding, abdominal distention, has had some weight loss. PAST MEDICAL HISTORY: Significant for a history of chronic kidney disease, diabetes mellitus, hypertension, obesity, hyperlipidemia, atrial fibrillation, history of aortic porcine valve, history of coronary artery disease, CVA, appendectomy, tonsillectomy, cardioversion, implantable loop recorder, cardioversion. MEDICATIONS AT HOME: 1. Eliquis. 2. Plavix. 3. Invokana. 4. Lutein. 5. Vitamin B. 6. Vitamin D. 7. Metoprolol. 8. Simvastatin. 9. Januvia. 10.Co-Enzyme Q. PHYSICAL EXAMINATION: Physical examination reveals a 80-year-old frail male who looks older than stated age. HEENT is unremarkable. Neck is supple without adenopathy. Lungs are clear. Heart is regular. Lungs are clear. Abdomen is softly distended, tympanitic throughout without guarding, rebound or peritoneal signs. Extremities are warm and well-perfused. IMPRESSION/PLAN: At this point, I have difficulty seeing the CT scan, evidence of the obstruction at 20 cm as was reported on the colonoscopy and if there is any concern of abnormality, it may be that the patient needs to be decompressed and cleaned out a little bit more before proceeding with operative intervention or on table evaluation with a sigmoidoscope but overall from his standpoint over the next few days I would recommend that he be kept NPO, IV fluids and allowed to decompress to allow for a laparoscopic/robotic approach to this resection. He is a relatively frail individual and will need optimization from a medical standpoint prior to operative intervention. If they feel, however he is a not very good candidate for intervention, he may need a diverting colostomy. Depending on the location of the cancer as well, if Dr. Shay feels this is below the peritoneal reflection, then possibly proceeding with radiation may be an option if he was felt to be a nonoperative candidate and at that point I would recommend because of his obstructive presentation to place a rectal stent. However, at this point he is not completed obstructed and will see how he does over the next few days.
[2020-11-11] MEDS ORDERED: DIGOXIN INJ 0.5 MG/2 ML AMP (J1160) IV ONE (18:00)
[2020-11-11] MEDS: AMIODARONE HCL 360 MG in IV 1 EA IV SCH (18:32)
[2020-11-11 20:00] VITALS: BP 101/59
[2020-11-11] MEDS ORDERED: POTASSIUM CHLORIDE 10 MEQ SR TABLET PO ONE (20:35)
[2020-11-11] MEDS: SODIUM BICARBONATE 325 MG TAB PO SCH (22:24)
[2020-11-12] VITALS: BP 92/56
[2020-11-12 00:11] LABS: MAGNESIUM LEVEL 1.2 MG/DL (1.8-2.4)
[2020-11-12] MEDS: METOCLOPRAMIDE INJ 10MG/2ML VIAL (J2765 PER 1) IV SCH ×4 (00:31→18:03)
[2020-11-12] MEDS: DOXYCYCLINE HYCLATE 100 MG in D5W MINI-BAG PLUS 100 ML IV SCH ×2 (00:32→12:10)
[2020-11-12] MEDS: HumaLOG INSULIN (NovoLOG) PER UNIT SC SCH ×4 (00:32→18:03)
--- NOTE | 2020-11-12 02:32 | IPNPDOC ---
Text Note Date of Service The patient was seen on 11/12/20. NOTE CODE SEPSIS NOTE TIME OF SERVICE 240AM I was informed by the patient's RN that he met Sepsis screening criteria based on his RR and SBP At the time of my evaluation the patient denied having in any pain. According to his RN his cough is productive of yellow sputum HR 95 / BP 88/54 (MAP 65) / RR 267/ O2 99% on 2L / T 97.6 CVS: HR regularly irregular / + murmur LUNGS: CTAB INTEGUMENT: extremities pale and slightly cool to touch : hunter in place draining clear yellow urine Plan: #Possible early Sepsis qSOFA score is 2 / + SIRS based on HR and RR The patient is already on abx for PNA & the Cx for PNA have already been ordered Plan: ask [employer] to draw labs now / will add on lactic acid, blood cultures & UA w reflex UCx / will give 1000ml bolus of NS LATE ENTRY MAP is still below 70. Per RN the patient is a hard stick so the IVF were put on hold while the pt receives Amiodarone and abx. I asked her to ask her collegues for assistance with obtaining additional lines so that we can resume IVF and placed orders to transfer the patient to the ICU as I suspect that he may need to be started on pressors VS,Jeanbone, I+O VS, Fishbone, I+O Laboratory Tests 11/11/20 06:00 11/11/20 14:31 Vital Signs Date Time Temp Pulse Resp B/P (MAP) Pulse Ox O2 Delivery O2 Flow Rate FiO2 11/12/20 00:00 96.5 90 26 92/56 (68) 99 Nasal Cannula 3.0 I&O- Last 24 Hours up to 6 AM 11/12/20 06:00 Intake Total 360 ml Output Total 330 ml Balance 30 ml JC PEOPLES MD Nov 12, 2020 02:32
[2020-11-12 02:35] VITALS: BP 88/54
[2020-11-12] MEDS ORDERED: NS 500 ML IV ONE (02:45)
[2020-11-12] MEDS: LEVALBUTEROL 1.25 MG/0.5 ML CONCENTRATE NEB INH SCH ×4 (02:57→20:00)
[2020-11-12 03:00] LABS: HEMATOCRIT 31.8 % (42.0-52.0); HEMOGLOBIN 10.5 g/dl (13.5-17.5); MEAN CORPUSCULAR HEMOGLOBIN 30.3 pg (27.0-33.0); MEAN CORPUSCULAR VOLUME 91.9 fl (80.0-96.0); PLATELET COUNT, AUTOMATED 193 10^3/uL (150-450); RED BLOOD COUNT 3.46 10^6/uL (4.30-6.10); WHITE BLOOD COUNT 12.1 10^3/uL (4.0-10.0)
[2020-11-12] MEDS ORDERED: SODIUM BICARBONATE 75 MEQ in D5W 1,000 ML IV ONE ×2 (03:00→08:00)
[2020-11-12 03:13] LABS: CREATININE FOR GFR 2.62 MG/DL (0.70-1.30); GLOMERULAR FILTRATION RATE 25.3 (>42); POTASSIUM SERUM 3.3 MEQ/L (3.5-5.1)
[2020-11-12 04:00] VITALS: BP 95/52
[2020-11-12 05:59] LABS: HEMATOCRIT 30.1 % (42.0-52.0); HEMOGLOBIN 9.9 g/dl (13.5-17.5); MEAN CORPUSCULAR HEMOGLOBIN 30.4 pg (27.0-33.0); MEAN CORPUSCULAR HGB CONC 32.9 g/dl (32.0-36.5); MEAN CORPUSCULAR VOLUME 92.3 fl (80.0-96.0); PLATELET COUNT, AUTOMATED 180 10^3/uL (150-450); RED BLOOD COUNT 3.26 10^6/uL (4.30-6.10); WHITE BLOOD COUNT 11.3 10^3/uL (4.0-10.0)
[2020-11-12] MEDS: AMIODARONE HCL 360 MG in IV 1 EA IV SCH (06:38)
[2020-11-12 06:40] LABS: CALCIUM LEVEL 6.8 MG/DL (8.8-10.2); CREATININE FOR GFR 2.7 MG/DL (0.70-1.30); DIGOXIN LEVEL 1.8 NG/ML (0.5-2.0); GLOMERULAR FILTRATION RATE 24.4 (>42); MAGNESIUM LEVEL 1.4 MG/DL (1.8-2.4); POTASSIUM SERUM 3.2 MEQ/L (3.5-5.1)
[2020-11-12] MEDS: PIPERACILLIN/TAZOBACTAM SOD 3.375 GM in D5W MINI-BAG PLUS 50 ML IV SCH ×4 (06:40→21:54)
[2020-11-12] MEDS: MIDODRINE 5 MG TAB PO SCH ×3 (07:49→16:20)
[2020-11-12] MEDS ORDERED: LIDOCAINE 1% MDV 20ML VIAL As Ordered ONE (07:50)
--- NOTE | 2020-11-12 07:57 | ECGEPIP ---
[facility] Test Date: 2020-11-11 Pat Name: ABEL ARAUZ Department: Room: [place] [address] Gender: Male Type Mapper: PARISH : 1940 Requested By: WENDY Conner Order Number: [id number] Reading MD: Colten Ryder Measurements Intervals [place] Rate: 122 P: IL: QRS: 70 QRSD: 88 T: 267 QT: 324 QTc: 461 Interpretive Statements Atrial fibrillation with rapid ventricular response ST & T wave abnormality, consider lateral ischemia new from tracing done 10-30-20 Electronically Signed on 11-12-2020 7:56:30 EDT by Colten Ryder
[2020-11-12 08:00] VITALS: BP 98/58
[2020-11-12] MEDS ORDERED: LIDOCAINE 1% MDV 20ML VIAL SC ONE (08:00)
[2020-11-12] MEDS ORDERED: NS 1,000 ML IV ONE ×2 (08:15→10:40)
--- NOTE | 2020-11-12 08:48 | IPN ---
PROGRESS NOTE DATE: 11/11/2020 SUBJECTIVE: Hugo is seen and examined this morning at the bedside in the progressive care unit. He has deteriorated over the past 24 hours. He is in mild respiratory distress and has become increasingly hypoxic and is requiring now 5 liters of oxygen via nasal cannula. He is also in AFib with RVR. Heart rate was as high as 140s. He was started on Atenolol this morning, but he became hypotensive with systolic in the 80s to 90s. He was subsequently also given amiodarone and digoxin and had aggressive potassium supplementation as well. His chest x-ray shows a progressive left lower lobe infiltrate. The patient was started on doxycycline and IV Zosyn this morning as well. His IV fluids were stopped because of increasing hypoxemia. He got a dose of Lasix yesterday evening. During my visit today, the patient complains of shortness of breath at rest. I spoke to his , Maria E Monson, and updated her regarding his worsening clinical condition. OBJECTIVE: VITAL SIGNS: Temperature 96.9, pulse 94, respiratory rate 22, blood pressure 92/61, saturating 96% on 5 liters nasal cannula. INTAKE AND OUTPUT: Intake yesterday was 960. Urine output yesterday was 1325. Weight on the bed scale today is not recorded. GENERAL: The patient is seen at the bedside in the progressive care unit sitting up with the head of the bed elevated. He is in mild respiratory distress. He is notably tachypneic and speaking in three word sentences. HEENT: Extraocular muscles are intact. He is awake, alert, and cooperative. Pupils are round and reactive to light. Tongue is moist. NECK: Supple. Jugular veins are not elevated. HEART: Sounds are tachycardic and irregularly irregular. S1, S2. There is trace leg edema. LUNGS: Show shallow rapid breaths, mild tachypnea. There are diminished breath sounds on the left. There is three to four word conversational dyspnea. ABDOMEN: Obese. There are incisions with colt. GENITOURINARY: Shows Cedeno catheter. NEUROLOGIC: He moves all four extremities on command. He is oriented, awake, and alert. SKIN: Warm and dry. His drain is no longer present in the abdomen. LABORATORY DATA: Today's labs show white count 8.8, hemoglobin 11.8, platelets 213,000. Sodium 140, potassium 2.8, repeat potassium this afternoon 3.4, bicarbonate 24, BUN 29, creatinine 1.8. BNP 2855. IMAGING DATA: Chest x-ray done this morning shows left lower lobe infiltrate. Right lung is clear. INPATIENT MEDICATIONS: I stopped his IV fluids. I note he was given 150 mg IV amiodarone. He was also started by the primary team on doxycycline 100 mg IV b.i.d. He is also now on amiodarone infusion and on Zosyn 3.375 grams IV q. 6 hourly. He was also started on Atenolol 100 mg p.o. b.i.d., he only received one dose. He also received a dose of digoxin 0.125 mg IV x2. He received a dose of Lasix 40 mg IV yesterday evening. Xopenex p.r.n. Metoprolol was stopped. He was started on midodrine 10 mg p.o. three times a day and he received aggressive potassium supplementation today about 160 mEq p.o. total. He was also started on sodium bicarbonate 650 mg p.o. twice daily. PROBLEMS: 1. Chronic kidney disease (CKD) stage IIIB with superimposed acute kidney injury. The patient has been persistently hypotensive today because of atrial fibrillation (AFib) with rapid ventricular response (RVR) and use of beta-en and also because of left-sided pneumonia. His systolic has been mostly 80s to 90s. He has an acute kidney injury secondary to the hypotension. I repeated his chemistry this evening, which shows worsening of his renal function. However, we are holding IV fluids because of his increase in oxygen requirements. I recommend to use caution with blood pressure lowering medications as it is likely to worsen his clinical condition and renal function. 2. Atrial fibrillation (AFib) with rapid ventricular response (RVR). His blood pressure got quite low after a dose of Atenolol this morning. The p.m. dose of Atenolol was held. He is now on midodrine 10 mg three times a day. Hypotension is in the setting of AFib with RVR along with pneumonia. His AFib is now being managed with amiodarone and digoxin. He is in progressive renal failure because of the hypotension. However, he is not suitable for further IV fluids at the present time because of increasing oxygen requirements. 3. Left lower lobe pneumonia. Primary team has started him on doxycycline and Zosyn. His right lung was clear. Blood cultures are also pending. 4. Hypokalemia. He received aggressive potassium supplementation today; a total of 160 mEq of oral potassium was given. We need to keep his potassium at least around 4, especially in view of AFib with RVR. I am also going to get a magnesium level checked as he has not had one on this admission. 5. Metabolic acidosis. The patient's bicarbonate was up to 24 on the chemistry this morning; however, repeat chemistry in the evening again shows that his bicarbonate level is dropping (18). I am starting him on oral sodium bicarbonate supplementation as he is still having some diarrhea. 6. Acute hypoxic respiratory failure in the setting of health care-associated pneumonia and further complicated by hypotension from AFib with RVR. I am holding IV fluids today because of his increasing oxygen requirements. I am concerned because his blood pressures have been low and his fluids are on hold. Use caution with medications that can further lower his blood pressure as that will significantly worsen his renal function.
[2020-11-12] MEDS ORDERED: MAGNESIUM OXIDE 400MG TAB (MAG-OX) PO SCH (09:00)
--- NOTE | 2020-11-12 09:13 | REP ---
INDICATION: Central Line COMPARISON: 11/11/2020 TECHNIQUE: Portable AP view of the chest FINDINGS: Central venous line with catheter in the SVC. The mediastinum and cardiac silhouette are stable and cardiomegaly with aortic valve repair again noted. Ill-defined left lower lobe consolidation is again suggested along with possible small pleural reaction. Remainder lung pandey demonstrate chronic changes without acute process. No pneumothorax. IMPRESSION: 1. Suspected left lower lobe infiltrate and small pleural reaction unchanged. <Electronically signed by Velasquez Arroyo > 11/12/20 0909
[2020-11-12] MEDS: ENOXAPARIN 40MG/0.4ML SYRINGE (J1650 PER 10MG) SC SCH (10:02)
[2020-11-12] MEDS: SIMETHICONE 80MG CHEW TAB PO SCH ×4 (10:02→21:54)
[2020-11-12] MEDS: CLOPIDOGREL 75 MG TAB PO SCH (10:03)
[2020-11-12] MEDS: PREPARATION H SUPP (HEMORRHOID) PR SCH ×2 (10:03→21:55)
[2020-11-12] MEDS: POTASSIUM CHLORIDE 10 MEQ SR TABLET PO SCH ×2 (10:03→21:55)
[2020-11-12] MEDS: SODIUM BICARBONATE 325 MG TAB PO SCH ×2 (10:09→21:55)
--- NOTE | 2020-11-12 10:49 | IPNPDOC ---
Date Seen The patient was seen on 11/12/20. Progress Note SUBJECTIVE: hypoxia resolved after iv zosyn and doxy day2 started yesterday now on room air. rate controlled 90 bpm while on amiodarone iv gtt. afebrile still hypotensive. denies chest pain/pressure/tightness/n/v/abd pain. c/o sob but improved. productive cough white sputum, scant. Tele: afib rate controlled OBJECTIVE: VITAL SIGNS: see below GENERAL: aaox2. answers questions sparingly. not speaking much. no respiratory distress. mild use of resp acc mm. HEENT: Face is symmetric. Tongue is midline. moist mucous membranes. NECK: No JVD or thyromegaly. No cervical lymphadenopathy. LUNGS:left basilar crackles. coarse rhonchi b/l improved from yesterday HEART: S1 and S2, irregularly irregular ABDOMEN: Soft, nontender and nondistended. Positive bowel sounds x4 quadrants. EXTREMITIES: No cyanosis or clubbing. Positive 1+ pitting edema bilaterally. INPUT AND OUTPUT: Reviewed. LABORATORY DATA: Microbiology and imaging studies reviewed. ASSESSMENT AND PLAN: This is a 80-year-old male with a history of chronic atrial fibrillation, invasive colorectal adenocarcinoma diagnosed in October 2020, biopsied from a sigmoid mass with rectal bleeding. Plan for partial colectomy later this month, presented with acute lower GI bleed, needing RBC transfusion. Patient had a prior history of cardioversion and ablation in 2019 for atrial fibrillation, has chronic kidney disease Stage III, and a coronary artery stent in 2016 and had LAR for rectal cancer in 11/05/2020. Active issues are as follows: 1. Chronic atrial fibrillation with rapid ventricular rate,rate controlled on amiodarone iv gtt. tele. monitor for heart block or pauses. check tsh transition to po amiodarone to be titrated down. not tolerating beta blockers due to hypotension but maintaining map 75 2. Acute on chronic renal failure Stage III, managed by Nephrology, s/p sodium bicarbonate drip Nephrology is managing fluid balance and renal failure. Strict I and O's and daily weights. 3. New left lower lobe pneumonia, hospital acquired, MRSA screen ordered. Physical Therapy is on Zosyn and Doxycycline, with resolution of hypoxia Respiratory panel was negative on 11/05/2020. 4. History of CAD stent, no new c/o 5. Metabolic acidosis, resolved with IV bicarbonate drip secondary to acute kidney injury on chronic kidney disease, currently stable on po bicarb 6. Obesity complicating care. 7. Type 2 diabetes, on insulin sliding scale. 8. sepsis due to hcap /hypotension requiring iv fluids boluses to keep map >70 iv zosyn and doxy day 2 awaiitng culture results. needs central line for iv access for possible levophed iv gtt if doesnot respond to iv boluses of ns. 9. status post aortic valve replacement. 10. Acute hypoxic respiratory failure due to health care associated pneumonia. keep o2 sat >90%. on iv zosyn and doxycycline day 2. no fluid overload despite s/ p sodium bicarb gtt on cxr. 11. poor venous access-triple lumen cath by thoracic surgery. needed for 2 iv abx-zosyn/doxy, ivfluids ns iv boluses for hypotension, iv amiodarone iv gtt. possible need for iv levophed if does not respond to iv boluses for severe sepsis which may progress to septic shock. 12 rectal cancer s/p low anterior resection by Dr. Shay postop mgt per dr. shay 13. anemia due to gi bleed s/p rbc transfusion from previous admission 14. hernia repair -post op mgt per ronald 15. low potassium, low magnesium/electrolyte abn -supplemented. VS, I&O, 24H, [facility] Vital Signs/I&O Vital Signs Date Time Temp Pulse Resp B/P (MAP) Pulse Ox O2 Delivery O2 Flow Rate FiO2 11/12/20 08:00 97.4 87 18 98/58 (71) 96 Room Air 11/12/20 04:00 2.0 I&O- Last 24 Hours up to 6 AM 11/12/20 06:00 Intake Total 1914 ml Output Total 455 ml Balance 1459 ml Laboratory Data 24H LABS Laboratory Tests 2 11/11/20 12:07: Bedside Glucose (Misc Panel) 257H 11/11/20 14:31: Anion Gap 13, Glomerular Filtration Rate 27.8L, Calcium Level 7.5L, Magnesium Level 1.2L 11/11/20 18:14: Bedside Glucose (Misc Panel) 290H 11/12/20 00:41: Methicillin-Resist S.aureus DNA PCR NOT DETECTED 11/12/20 02:40: Nucleated Red Blood Cells % (auto) 0.0, Anion Gap 11, Glomerular Filtration Rate 25.3L, Lactic Acid Level 1.6, Calcium Level 7.0L 11/12/20 02:43: Urine Color YELLOW, Urine Appearance CLOUDYH, Urine pH 5.0, Urine Specific Brandon 1.020, Urine Protein 1+H, Urine Glucose (UA) NEGATIVE, Urine Ketones NEGATIVE, Urine Blood 3+H, Urine Nitrite NEGATIVE, Urine Bilirubin NEGATIVE, Urine Urobilinogen 0.2, Urine Leukocyte Esterase NEGATIVE, Urine WBC (Auto) 4H, Urine RBC (Auto) TNTCH, Urine Hyaline Casts (Auto) 0, Urine Bacteria (Auto) NEGATIVE, Urine Squamous Epithelial Cells 0, Urine Uric Acid Crystals (Auto) LARGE, Urine Sperm (Auto) 11/12/20 05:19: Nucleated Red Blood Cells % (auto) 0.0, Anion Gap 9, Glomerular Filtration Rate 24.4L, Calcium Level 6.8L, Magnesium Level 1.4L, Digoxin Level 1.8 CBC/BMP Laboratory Tests 11/11/20 14:31 11/12/20 02:40 11/12/20 05:19 Microbiology Microbiology 11/12/20 Gram Stain - Final, Resulted 11/12/20 Sputum Culture, Resulted Pending 11/12/20 Blood Culture, Received Pending 11/05/20 Respiratory Virus Panel (PCR) (SUDHIR) - Final, Complete WENDY HENDERSON MD Nov 12, 2020 10:48
--- NOTE | 2020-11-12 15:52 | RO ---
OPERATIVE NOTE DATE OF OPERATION: 11/12/2020 PREOPERATIVE DIAGNOSIS: 1. Need for vascular access. 2. Hypotension. POSTOPERATIVE DIAGNOSIS: PROCEDURE: Insertion of a left infraclavicular subclavian line. SURGEON: Dr. Odilon Funes DESCRIPTION OF PROCEDURE: Patient's left infraclavicular fossa was prepped and draped in the usual sterile fashion. Skin, subcutaneous tissue, and periosteum were infiltrated with 1% lidocaine. The subclavian vein was found on the first pass, and the wire passed without difficulty. Tract was dilated, and a triple-lumen catheter was placed by Seldinger technique. Catheter was aspirated and flushed without difficulty and secured to the chest wall with two 3-0 silk suture. Patient tolerated the procedure well, and a chest x-ray is pending.
[2020-11-12 16:00] VITALS: BP 110/58
[2020-11-12 20:00] VITALS: BP 114/57
[2020-11-13] VITALS: BP 106/64
[2020-11-13] MEDS: DOXYCYCLINE HYCLATE 100 MG in D5W MINI-BAG PLUS 100 ML IV SCH ×2 (00:23→12:16)
[2020-11-13] MEDS: HumaLOG INSULIN (NovoLOG) PER UNIT SC SCH ×5 (00:24→20:33)
[2020-11-13] MEDS: METOCLOPRAMIDE INJ 10MG/2ML VIAL (J2765 PER 1) IV SCH ×5 (00:24→23:55)
[2020-11-13] MEDS: LEVALBUTEROL 1.25 MG/0.5 ML CONCENTRATE NEB INH SCH ×4 (01:06→20:07)
[2020-11-13 04:00] VITALS: BP 97/58
[2020-11-13] MEDS: PIPERACILLIN/TAZOBACTAM SOD 3.375 GM in D5W MINI-BAG PLUS 50 ML IV SCH (05:19)
[2020-11-13 05:39] LABS: HEMOGLOBIN 9.4 g/dl (13.5-17.5); MEAN CORPUSCULAR HEMOGLOBIN 30.7 pg (27.0-33.0); MEAN CORPUSCULAR HGB CONC 33.6 g/dl (32.0-36.5); MEAN CORPUSCULAR VOLUME 91.5 fl (80.0-96.0); PLATELET COUNT, AUTOMATED 190 10^3/uL (150-450); RED BLOOD COUNT 3.06 10^6/uL (4.30-6.10); WHITE BLOOD COUNT 11.9 10^3/uL (4.0-10.0)
[2020-11-13 06:11] LABS: CALCIUM LEVEL 7.1 MG/DL (8.8-10.2); CREATININE FOR GFR 1.92 MG/DL (0.70-1.30); GLOMERULAR FILTRATION RATE 36.1 (>42); POTASSIUM SERUM 3.1 MEQ/L (3.5-5.1)
[2020-11-13] MEDS ORDERED: AMIODARONE HCL 150 MG in IV 1 EA IV STA (07:28)
[2020-11-13 08:00] VITALS: BP 104/57
--- NOTE | 2020-11-13 08:24 | IPN ---
NEPHROLOGY PROGRESS NOTE DATE: 11/12/2020 SUBJECTIVE: Mr. Ray is seen and examined this morning at the bedside. Overall I found him in a better condition today than yesterday, although he is very fatigued and is not very conversational. He tells me that his breathing feels better today as compared to yesterday. He is intermittently on and off supplemental oxygen, sometimes on room air and sometimes on 2-3 liters of nasal cannula. His blood pressures remain soft today. Most of his systolics are still in the 90's. Primary Team has bolused him a liter of normal saline. Laboratory studies show worsening renal function. Creatinine is up to 2.7 on the labs today. His heart rate is controlled now with Amiodarone and Digoxin. His beta en was stopped because of hypotension. OBJECTIVE: PHYSICAL EXAMINATION: VITAL SIGNS: Temperature 97.4, pulse 87, respiratory rate 18, blood pressure 98/58, saturating 96-99% on room air and occasionally on 2 liters nasal cannula. INTAKE AND OUTPUT: Intake yesterday was one liter. Urine output yesterday was 900. Stool output was 500. Urine output today is already more than 1,100 mL. Weight in the bed scale today is 126.9 kg. GENERAL APPEARANCE: The patient is seen lying in bed with the head of the bed elevated, elderly male, tired and fatigued appearing but not in any respiratory distress, but offers little in the way of conversation. Oriented to person and to place. HEENT: The extraocular muscles are intact. He was on room air at the time of my visit. NECK: Supple. No jugular venous distention. HEART: Irregularly irregular. Trace pedal and ankle edema. LUNGS: Diminished breath sounds bilaterally with rhonchi and crackles on the left base. ABDOMEN: Soft and obese and nontender. There are incisions with colt. GENITOURINARY: Cedeno catheter. LABORATORY STUDIES: Sodium 136, potassium 3.2, bicarbonate 21, BUN 39, creatinine 2.7, magnesium 1.4, hemoglobin 9.9, platelet count 180, white count 11.3. Repeat blood culture from November 12 is pending. Sputum culture is pending as well. IMAGING: Chest x-ray done this morning shows left lower lobe infiltrate. CURRENT INPATIENT MEDICATIONS: The patient continues on IV Doxycycline and IV Zosyn. He got 1.5 liters normal saline bolus by the Primary Service and he also got one liter of d5w with 75 mEq of sodium bicarbonate. His Atenolol was stopped. He only ever received one dose. He is receiving magnesium 800 mg p.o. twice daily and he was also today started on potassium chloride 40 mEq. He has gotten one dose thus far. PROBLEMS: 1. Acute kidney injury on chronic kidney disease stage 3 - acute kidney injury occurred yesterday because of persistent hypotension in the setting of atrial fibrillation with rapid ventricular response with concomitant use of beta en and also because of left sided pneumonia. Systolics still remain soft today, mostly in the 90's. The Primary Service has already ordered IV fluids today, and I am not ordering any more as he has already gotten about 2 liters today. His urine output does seem to be improving today and I am hopeful that the renal function will improve on labs tomorrow. 2. Hypotension in the setting atrial fibrillation with rapid ventricular response, recent use of beta en and concomitant left sided pneumonia the beta en has been stopped. His heart rate is now controlled. Continue with Midodrine. He is on IV antibiotics for the pneumonia. He is receiving IV fluids today as well. 3. Left lower lobe pneumonia the Primary Team has started him on Doxycycline and Zosyn. Blood culture is pending. Oxygen requirements are decreasing. He is receiving IV fluids today. 4. Hypokalemia he is receiving oral potassium supplementation. 5. Hypomagnesemia - The patient is still having diarrhea. I think it will worsen with magnesium 800 mg p.o. twice daily. Because of its side effects, I am cutting the dose of the oral magnesium. 6. Metabolic acidosis his bicarbonate is improving. He is receiving IV and oral bicarbonate supplementation.
--- NOTE | 2020-11-13 08:41 | IPNPDOC ---
Text Note Date of Service The patient was seen on 11/13/20. NOTE 80y/o male PO s/p RA LAR for rectal cancer transferred to PCU. He is still not ambulating. His pain is controlled. Reports being able to eat. he is having lots of flatus and BMs. Urine output has improved, and a hunter is in place. Pathology report was discussed with patient and a chemotherapy option was explained to prevent microvascular spread. Pathology: Invasive colorectal adenocarcinoma, moderately differentiated invades through muscularis propria into pericolorectal tissue. No lymphovascular invasion identified. Margins are uninvolved by invasive carcinoma. Hernia sac is noted. Nine lymph nodes negative for metastatic carcinoma Chest x-ray showed left lower lobe infiltrate and started on antibiotics VSSAF NAD abd - soft, TTP appropriate, incisions c/d/i, drain in RLQ with serosanguinous output Stool - c.diff neg A) 80y/o male PO s/p RA LAR for rectal cancer with new leukocytosis and MYA ARF CHF P) reg diet ambulate IS PT OOB to chair d/c drain medical management VS,Fishbone, I+O VS, Fishbone, I+O Laboratory Tests 11/13/20 05:23 Vital Signs Date Time Temp Pulse Resp B/P (MAP) Pulse Ox O2 Delivery O2 Flow Rate FiO2 11/13/20 04:00 96.7 108 18 97/58 (71) 98 Room Air 11/12/20 04:00 2.0 I&O- Last 24 Hours up to 6 AM 11/13/20 06:00 Intake Total 450 ml Output Total 1400 ml Balance -950 ml Nir Staley DO Nov 13, 2020 08:41
[2020-11-13] MEDS: PREPARATION H SUPP (HEMORRHOID) PR SCH ×3 (09:00→21:00)
[2020-11-13] MEDS ORDERED: MAGNESIUM OXIDE 400MG TAB (MAG-OX) PO SCH (09:00)
[2020-11-13] MEDS: CLOPIDOGREL 75 MG TAB PO SCH (09:10)
[2020-11-13] MEDS: MIDODRINE 5 MG TAB PO SCH ×3 (09:10→15:11)
[2020-11-13] MEDS: ENOXAPARIN 40MG/0.4ML SYRINGE (J1650 PER 10MG) SC SCH (09:11)
[2020-11-13] MEDS: POTASSIUM CHLORIDE 10 MEQ SR TABLET PO SCH ×3 (09:11→21:23)
[2020-11-13] MEDS: SIMETHICONE 80MG CHEW TAB PO SCH ×4 (09:11→21:23)
[2020-11-13] MEDS: SODIUM BICARBONATE 325 MG TAB PO SCH ×2 (09:11→21:22)
[2020-11-13] MEDS ORDERED: PIPERACILLIN/TAZOBACTAM SOD 4.5 GM in D5W MINI-BAG PLUS 50 ML IV SCH (11:00)
--- NOTE | 2020-11-13 11:07 | IPNPDOC ---
Date Seen The patient was seen on 11/13/20. Progress Note S: Patient denies any worsening shortness of breath. Denies any chest pain, pressure, tightness or palpitations. His A. fib is slightly improved after the amiodarone intravenous drip but remains in the high 90s beats per minute. He remains debilitated with weakness and has not been out of bed. He denies any hematemesis, coffee-ground emesis, recurrent bright red blood per rectum, melena, or black tarry stools. No complaints of near syncope or lightheadedness. He continues to have shortness of breath but improved and cough productive of white sputum. O: PE: vitals: see below VITAL SIGNS: see below GENERAL: aaox2., No pallor, icterus, mild respiratory distress With conversational dyspnea about 6-7 words HEENT: Face is symmetric. Tongue is midline. moist mucous membranes. NECK: No JVD or thyromegaly. No cervical lymphadenopathy. LUNGS:left basilar crackles. coarse rhonchi b/l improved from yesterday HEART: S1 and S2, irregularly irregular ABDOMEN: Soft, nontender and nondistended. Positive bowel sounds x4 quadrants. Drain removed EXTREMITIES: No cyanosis or clubbing. Positive 1+ pitting edema bilaterally. INPUT AND OUTPUT: Reviewed. LABORATORY DATA: Microbiology and imaging studies reviewed. ASSESSMENT AND PLAN: This is a 80-year-old male with a history of chronic atrial fibrillation, invasive colorectal adenocarcinoma diagnosed in October 2020, biopsied from a sigmoid mass with rectal bleeding. Plan for partial colectomy later this month, presented with acute lower GI bleed, needing RBC transfusion. Patient had a prior history of cardioversion and ablation in 2019 for atrial fibrillation, has chronic kidney disease Stage III, and a coronary artery stent in 2017 and had LAR for rectal cancer in 11/05/2020. Active issues are as follows: 1. Chronic atrial fibrillation with rapid ventricular rate,rate controlled , Status post amiodarone iv gtt. tele. monitor for heart block or pauses. , Heart rate is still in the high 90s and will be given 1 dose of IV amiodarone 150 mg and transitioned to oral amiodarone 200 mg every 6 hourly to be held for sinus pause. Heart block or heart rate less than 60. He is not tolerating beta blockers due to hypotension but maintaining map 70-75 per surgery. Okay to resume patient's anticoagulation, but currently on Plavix with anemia. 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 Acute on chronic renal failure Stage III, managed by Nephrology, s/p sodium bicarbonate drip Nephrology is managing fluid balance and renal failure. Strict I and O's and daily weights. 3. New left lower lobe pneumonia, hospital acquired, MRSA screen ordered. Physical Therapy is on Zosyn and Doxycycline, with resolution of hypoxia Respiratory panel was negative on 11/05/2020. . Sputum cultures pending. Patient has worsening white blood cell count will need to wait for sputum culture and tailor antibiotics accordingly. Leukocytosis has been evaluated with negative urinalysis, no skin cellulitic changes have been noted 4. History of CAD stent, no new c/o on Plavix with no overt bleeding. 5. Metabolic acidosis, resolved with IV bicarbonate drip secondary to acute kidney injury on chronic kidney disease, currently stable on po bicarb 6. Obesity complicating care. 7. Type 2 diabetes, on insulin sliding scale . 8. sepsis due to hcap /hypotension requiring iv fluids boluses to keep map >70 iv zosyn and doxy day 3 awaitng sputum culture results. , Status post central line for iv access for possible levophed iv gtt if doesnot respond to iv boluses of ns. 9. status post aortic valve replacement. 10. Acute hypoxic respiratory failure due to health care associated pneumonia. keep o2 sat >90%. on iv zosyn and doxycycline day 3. no fluid overload despite s/ p sodium bicarb gtt on cxr. 11. poor venous access-triple lumen cath by thoracic surgery. needed for 2 iv abx-zosyn/doxy, ivfluids ns iv boluses for hypotension, iv amiodarone iv gtt. possible need for iv levophed if does not respond to iv boluses for severe sepsis which may progress to septic shock. 12 rectal cancer s/p low anterior resection by Dr. Shay postop mgt per dr. shay. Pathology discussed by Dr. Shay with the patient. Outpatient referral to medical and radiation oncologist but patient currently has poor functional status 13. anemia due to gi bleed s/p rbc transfusion from previous admission , Stable hemoglobin, not requiring Repeat blood transfusion 14. hernia repair -post op mgt per ronald 15. low potassium, low magnesium/electrolyte abn resolved -supplemented. VS, I&O, 24H, Fishbone Vital Signs/I&O Vital Signs Date Time Temp Pulse Resp B/P (MAP) Pulse Ox O2 Delivery O2 Flow Rate FiO2 11/13/20 08:00 97.6 98 18 104/57 (73) 98 Room Air 11/12/20 04:00 2.0 I&O- Last 24 Hours up to 6 AM 11/13/20 06:00 Intake Total 450 ml Output Total 1400 ml Balance -950 ml Laboratory Data 24H LABS Laboratory Tests 2 11/12/20 14:10: 11/13/20 00:12: Bedside Glucose (Misc Panel) 139H 11/13/20 05:23: Nucleated Red Blood Cells % (auto) 0.0, Anion Gap 12, Glomerular Filtration Rate 36.1L, Calcium Level 7.1L 11/13/20 06:07: Bedside Glucose (Misc Panel) 154H CBC/BMP Laboratory Tests 11/13/20 05:23 Microbiology Microbiology 11/12/20 Gram Stain - Final, Resulted 11/12/20 Sputum Culture, Resulted Pending 11/12/20 Blood Culture - Preliminary, Resulted No growth after 24 hours . All specim... 11/05/20 Respiratory Virus Panel (PCR) (SUDHIR) - Final, Complete WENDY HENDERSON MD Nov 13, 2020 11:07
[2020-11-13] MEDS ORDERED: GLUCOSE 4GM CHEW TABLET PO PRN (11:55)
[2020-11-13] MEDS ORDERED: GLUCAGON INJ 1MG VIAL SC PRN (11:55)
[2020-11-13] MEDS ORDERED: DEXTROSE 50% 50 ML SYRINGE IV PRN (11:55)
[2020-11-13 12:00] VITALS: BP 114/53
[2020-11-13] MEDS ORDERED: AMIODARONE 200 MG TAB (PACERONE) PO SCH (12:00)
[2020-11-13 16:00] VITALS: BP 101/57
[2020-11-13 16:20] LABS: CALCIUM LEVEL 7.5 MG/DL (8.8-10.2); CREATININE FOR GFR 2.04 MG/DL (0.70-1.30); GLOMERULAR FILTRATION RATE 33.7 (>42); MAGNESIUM LEVEL 1.8 MG/DL (1.8-2.4)
[2020-11-13] MEDS: KCL 10MEQ/100ML SWI (KRUN) 10 MEQ in IV 1 EA IV SCH ×2 (16:49→17:52)
[2020-11-13] MEDS: cefTRIAXone SOD 2 GM in D5W MINI-BAG PLUS 50 ML IV SCH (16:49)
[2020-11-13] MEDS: ONDANSETRON 4MG/2ML VIAL IV PRN ×2 (17:27→21:24)
[2020-11-13] MEDS: AMIODARONE 200 MG TAB (PACERONE) PO SCH (17:52)
[2020-11-13 20:00] VITALS: BP 102/76
[2020-11-13] MEDS ORDERED: SODIUM BICARBONATE 100 MEQ in KCL 20MEQ IN D5W 1000ML 1,000 ML IV SCH ×2 (21:00)
[2020-11-14] VITALS: BP 118/59
[2020-11-14] MEDS: AMIODARONE 200 MG TAB (PACERONE) PO SCH ×4 (00:17→21:10)
[2020-11-14] MEDS: LEVALBUTEROL 1.25 MG/0.5 ML CONCENTRATE NEB INH SCH ×4 (04:34→20:17)
[2020-11-14] MEDS: METOCLOPRAMIDE INJ 10MG/2ML VIAL (J2765 PER 1) IV SCH ×3 (05:30→17:11)
[2020-11-14 05:47] LABS: HEMATOCRIT 25.7 % (42.0-52.0); HEMOGLOBIN 8.6 g/dl (13.5-17.5); MEAN CORPUSCULAR HEMOGLOBIN 30.6 pg (27.0-33.0); MEAN CORPUSCULAR HGB CONC 33.5 g/dl (32.0-36.5); MEAN CORPUSCULAR VOLUME 91.5 fl (80.0-96.0); PLATELET COUNT, AUTOMATED 207 10^3/uL (150-450); RED BLOOD COUNT 2.81 10^6/uL (4.30-6.10); WHITE BLOOD COUNT 10.1 10^3/uL (4.0-10.0)
[2020-11-14 06:24] LABS: CREATININE FOR GFR 1.9 MG/DL (0.70-1.30); GLOMERULAR FILTRATION RATE 36.6 (>42); PERCENT SATURATION 14.6 % (19.7-50.0); POTASSIUM SERUM 3.4 MEQ/L (3.5-5.1)
--- NOTE | 2020-11-14 06:33 | IPN ---
"PROGRESS NOTE DATE: 11/13/2020 SUBJECTIVE: Hugo is seen and examined this morning at the bedside. He has been having diarrheal bowel movements. He reports his breathing feels more comfortable than the past day. Laboratory studies show improving renal function. He is also having improving urine output. There is still an ongoing cough but patient is now on room air. OBJECTIVE: | VITAL SIGNS: Temperature is 97.6, pulse is 98, respiratory rate is 18, blood pressure is 104/57, saturating 98% on room air. INTAKE AND OUTPUT: Intake yesterday was 1750, urine output yesterday was 1200, weight on the bed scale today is 130.4 kg. GENERAL: Patient is seen sitting out of bed to the chair, elderly male, awake, alert and in mild respiratory distress. HEENT: Extraocular muscles are intact. Tongue is moist. NECK: Supple. Jugular veins were not elevated while he is sitting upright. HEART: Heart sounds are irregularly irregular. There is no leg edema. LUNGS: Crackles on the left and he has cough with deep inspiration. He speaks in short sentences but there is less tachypnea today. He is seen on room air. ABDOMEN: Soft and obese. There are colt present on the incisions. There is a dressing where the drain was previously located. GENITOURINARY: Cedeno catheter is draining yellow urine. EXTREMITIES: Negative for edema, clubbing or cyanosis. He is notably soiled with liquid stool. LABORATORY DATA: White count 11.9, hemoglobin is 9.4, platelets are 190,000. Sodium is 144, potassium is 3.1, bicarbonate 18, BUN 33, creatinine 1.9. INPATIENT MEDICATIONS: I ordered one liter of IV fluids formulated as D5W with 100 mEq of sodium bicarbonate and 20 mEq of potassium chloride to run at 60 ml/hr for one liter only. He also received a dose of amiodarone 150 mg IV x1 today. He is also noted to be on Ceftriaxone 2 grams IV daily. He is no longer on Zosyn or Doxycycline. I note he was started on amiodarone 400 mg p.o. q. 8 hourly. His insulin was adjusted by the primary service. He got oral potassium supplementation and he continues on oral sodium bicarbonate as well. The remainder of medications are unchanged as compared to yesterday. PROBLEMS: 1. Nonoliguric acute kidney injury superimposed on CKD Stage III, acute kidney injury secondary to hypotension in the setting of atrial fibrillation and in the setting of left sided pneumonia. He has improved with supportive care of his pneumonia and with rate control of the atrial fibrillation and improved hemodynamics. His renal function is better on the blood work today. His urine output is likewise improving. He is still having diarrhea. I note the oral magnesium has been stopped. I am giving him bicarbonate based IV fluids today for one liter only. 2. Metabolic acidosis. Patient is receiving oral bicarbonate supplementation and IV bicarbonate supplementation as well. He is having diarrhea causing the metabolic acidosis along with kidney injury. 3. Hypokalemia. He is receiving oral potassium supplementation. He may not be absorbing the oral potassium well given his ongoing diarrhea. I have added potassium in his IV fluids. 4. Hypotension in the setting of atrial fibrillation. He is receiving amiodarone and blood pressures are better than they were two days ago and he continues on Midodrine as well. Hypotension is also in the setting of pneumonia and he is improving with antibiotics and is no longer requiring supplemental oxygen. 5. Left lower lobe pneumonia. Antibiotics managed by the primary team. He is off of oxygen. He is getting one liter of IV fluids today."
[2020-11-14] MEDS: SODIUM BICARBONATE 325 MG TAB PO SCH ×2 (07:24→21:10)
[2020-11-14] MEDS: CLOPIDOGREL 75 MG TAB PO SCH (07:25)
[2020-11-14] MEDS: MIDODRINE 5 MG TAB PO SCH ×4 (07:25→16:12)
[2020-11-14] MEDS: AZITHROMYCIN 250MG TABLET PO SCH (07:25)
[2020-11-14] MEDS: SIMETHICONE 80MG CHEW TAB PO SCH ×4 (07:25→21:09)
[2020-11-14] MEDS: ENOXAPARIN 40MG/0.4ML SYRINGE (J1650 PER 10MG) SC SCH (07:26)
[2020-11-14] MEDS: HumaLOG INSULIN (NovoLOG) PER UNIT SC SCH ×4 (07:26→21:00)
[2020-11-14] MEDS: POTASSIUM CHLORIDE 10 MEQ SR TABLET PO SCH ×3 (07:26→21:08)
[2020-11-14] MEDS: PREPARATION H SUPP (HEMORRHOID) PR SCH ×2 (07:27→21:00)
[2020-11-14] MEDS ORDERED: AMIODARONE HCL 150 MG in IV 1 EA IV STA (07:56)
[2020-11-14 08:00] VITALS: BP 124/74
[2020-11-14] MEDS ORDERED: SODIUM CHLORIDE 0.9% 1000ML IV ONE (08:00)
[2020-11-14] MEDS ORDERED: atenoloL 50 MG TAB PO ONE (08:15)
[2020-11-14 08:32] LABS: DIGOXIN LEVEL 0.5 NG/ML (0.5-2.0)
[2020-11-14 09:14] LABS: MAGNESIUM LEVEL 1.9 MG/DL (1.8-2.4)
--- NOTE | 2020-11-14 09:28 | IPN ---
PROGRESS NOTE DATE: 11/14/2020 SUBJECTIVE: The patient complains of difficulty swallowing this morning. P.o. medications have been held. Speech evaluation pending. The patient has a productive cough with white-yellow sputum at the bedside. No fever or chills overnight. Heart rate was uncontrolled with rate of 116 to 120 on amiodarone 400 q.8 currently given IV amiodarone x1 this morning. OBJECTIVE: VITAL SIGNS: Temperature 96.9, pulse 101 to 116, respiratory 24, blood pressure 118/59, 96% on room air. GENERAL: Awake, alert, and oriented to himself. Answering questions appropriately. NECK: No JVD. No thyromegaly. LUNGS: Diminished. Crackles at the left base. HEART: S1, S2. Irregularly irregular and tachycardic. ABDOMEN: Obese, soft, nontender, and nondistended. EXTREMITIES: Chronic 2+ pitting edema. DIAGNOSTIC STUDIES: Laboratory data, imaging studies, and microbiology have been reviewed. The pathology from 11/06/2020, adenocarcinoma. ASSESSMENT: This is a 80-year-old male with recent history of adenocarcinoma of the colorectum with plans for partial colectomy later this month who presented with acute lower gastrointestinal (GI) bleed needing red blood cells (RBC) transfusion. Prior history of chronic atrial fibrillation (AFib) with cardioversion and ablation, chronic kidney disease (CKD) stage III, coronary artery disease (CAD) stent on chronic Plavix, has lower anterior resection (LAR) for rectal CA 11/05/2020. Active issues: 1. Chronic atrial fibrillation (AFib) with rapid ventricular response (RVR). The patient had been on IV amiodarone drip changed to amiodarone 400 q. 8 with still uncontrolled rate, now given one dose of IV amiodarone and since the patient is having dysphagia, he can be given another continuous drip is aspirating. 2. Dysphagia. Rule out aspiration. Speech therapist consulted this morning. P.o. medications have been held. 3. Acute on chronic renal failure at baseline creatinine managed by nephrology. Strict I and O (intake and output), daily weights, and fluid restriction. 4. New left lower lobe pneumonia hospital acquired methicillin-resistant Staphylococcus aureus (MRSA) screen negative on doxycycline and Zosyn for now. 5. History of coronary artery disease (CAD) stent on Plavix. 6. Rectal carcinoma (CA) with colorectal adenocarcinoma. Post management per surgery. 7. Anemia. No need for red blood cells (RBC) transfusion at this time. 8. Type 2 diabetes on sliding scale, hypoglycemic protocol, and fingersticks q. a.c. and h.s. 9. Obesity complicating care. 10. Sepsis due to health care-associated pneumonia with hypotension on day four of IV Zosyn and doxycycline awaiting sputum culture. Poor venous access. Central line placed left subclavian. 11. History of aortic valve replacement due to severe aortic stenosis, chronic. 12. Acute hypoxic respiratory failure due to health care-associated pneumonia. 13. Fluid overload Congestive heart failure (CHF) and diastolic dysfunction managed by nephrology for diuresis. TRAVISD
[2020-11-14] MEDS: METOPROLOL 5 MG/5 ML VIAL IV SCH ×3 (09:42→10:30)
[2020-11-14] MEDS: KCL 10MEQ/100ML SWI (KRUN) 10 MEQ in IV 1 EA IV SCH ×3 (09:45→12:08)
--- NOTE | 2020-11-14 09:46 | REP ---
INDICATION: SOB COMPARISON: 11/12/2020 TECHNIQUE: Portable AP view of the chest FINDINGS: Central line with tip in the SVC remains stable. The mediastinum and cardiac silhouette are stable and cardiomegaly with aortic valve repair again noted. The lung pandey again demonstrate suspected left lower lobe atelectasis which appears minimally improved. No further acute consolidation, effusion, or pneumothorax. Skeletal structures stable. IMPRESSION: Findings suggest minimally improved left lower lobe opacity. <Electronically signed by Velasquez Arroyo > 11/14/20 [id number]
[2020-11-14] MEDS ORDERED: MAG SULF 1GM/100ML (MAG RUN) 1 GM in IV 1 EA IV ONE (10:15)
[2020-11-14 12:00] VITALS: BP 111/61
--- NOTE | 2020-11-14 14:46 | IPN ---
PROGRESS NOTE DATE: 11/14/2020 SUBJECTIVE: Mr. Monson is seen and examined this morning at the bedside. He looks much better today, he makes a joke with me actually, he tells me his breathing feels more comfortable. He is still having diarrhea. He denies shortness of breath at rest. Temperature 96.2, pulse 82, respiratory rate 20, blood pressure 111/61, saturating 96% on room air. Intake yesterday was 1500 mL, urine output was 1300 mL, weight in the bed scale today is 129.6 kg General: Patient is seen sitting out of bed to the chair, awake, alert, oriented. DICTATION ENDS HERE
--- NOTE | 2020-11-14 14:58 | IPN ---
NEPHROLOGY PROGRESS NOTE DATE: 11/14/2020 SUBJECTIVE: Mr. Monson is seen this morning at the bedside. He looks much better today. He is more conversational. He even makes a joke. He reports he is still having diarrhea. His breathing has improved. He denies shortness of breath at rest. He remains on room air. Laboratory studies show improving renal function. Hemodynamically, he is also improved. Systolic is now consistently above 100. OBJECTIVE: VITAL SIGNS: Temperature 96.2, pulse 82, respiratory rate 23, blood pressure 111/62, saturating 96% on room air. GENERAL: Patient is seen sitting in a chair, elderly male, awake, alert, in no distress. HEENT: Extraocular muscles are intact. Tongue is moist. Neck is supple. Jugular veins were not elevated while he is sitting upright. HEART: Sounds are irregularly irregular. There is no leg edema. LUNGS: Show crackles on the left and cough with deep inspiration. He is seen on room air. There is no accessory muscle use. ABDOMEN: Soft and obese. GENITOURINARY: Shows a Cedeno catheter. EXTREMITIES: Negative for edema, clubbing or cyanosis. NEUROLOGIC: He is interactive and cooperative with physical exam and answers simple questions appropriately. LABORATORY DATA: White count 10.1, hemoglobin 8.6, platelets 207. Sodium 139, potassium 3.4, bicarbonate 20, BUN 35, creatinine 1.9, GFR 36, magnesium 1.9. Transferrin saturation is 15% with an iron level of 31. Chest x-ray done this morning shows improved left lower lobe pneumonia. INPATIENT MEDICATIONS: Reviewed by myself. Patient was given another dose of amiodarone today. He continues on intravenous (IV) ceftriaxone. He received magnesium sulfate 1 gram IV times one run. He is on oral amiodarone as well. The remainder of his medications are unchanged as compared to yesterday. PROBLEMS: 1. Acute kidney injury superimposed on chronic kidney disease (CKD) stage III. His acute kidney injury is in the setting of hypotension due to atrial fibrillation and left-sided pneumonia. He is improving with supportive care of the pneumonia and with rate control of the atrial fibrillation and has improved hemodynamics. Systolic blood pressure is now persistently above 100. His urine output has improved. His renal function is improving. He finished up 1 liter of sodium bicarbonate-containing fluids. I am not ordering further IV fluid at this time. 2. Hypokalemia in the setting of diarrhea. He is probably not absorbing the oral potassium supplementation. He did receive potassium with his IV fluid. 3. Metabolic acidosis due to acute kidney injury and also diarrhea. He is receiving oral bicarbonate supplementation and he just finished up 1 liter of bicarbonate-containing fluids as well. 4. Hypotension in the setting of atrial fibrillation and pneumonia. I would suggest to keep on holding beta-en. He is receiving amiodarone and rate control has improved. He is on midodrine as well. His pneumonia is also clinically improving and overall, his hemodynamics have improved. 5. Left lower lobe pneumonia. Antibiotics managed by primary team. He is off of oxygen. 6. Anemia with iron deficiency. Hemoglobin is 8.6, with transferrin saturation of only 14%. He will get IV iron prior to discharge.
[2020-11-14] MEDS ORDERED: KCL 10MEQ/100ML SWI (KRUN) 10 MEQ in IV 1 EA IV ONE (15:00)
[2020-11-14] MEDS: cefTRIAXone SOD 2 GM in D5W MINI-BAG PLUS 50 ML IV SCH (16:09)
[2020-11-14 16:33] VITALS: BP 134/75
[2020-11-14 20:00] VITALS: BP 143/69
[2020-11-15] VITALS: BP 120/68
[2020-11-15] MEDS: LEVALBUTEROL 1.25 MG/0.5 ML CONCENTRATE NEB INH SCH ×4 (01:55→19:31)
[2020-11-15 04:00] VITALS: BP 126/61
[2020-11-15] MEDS: METOCLOPRAMIDE INJ 10MG/2ML VIAL (J2765 PER 1) IV SCH ×5 (06:00→23:46)
[2020-11-15 08:00] VITALS: BP 129/62
[2020-11-15] MEDS: SODIUM BICARBONATE 325 MG TAB PO SCH ×2 (08:09→21:05)
[2020-11-15] MEDS: SIMETHICONE 80MG CHEW TAB PO SCH ×4 (08:09→21:05)
[2020-11-15] MEDS: HumaLOG INSULIN (NovoLOG) PER UNIT SC SCH ×4 (08:09→21:00)
[2020-11-15] MEDS: AZITHROMYCIN 250MG TABLET PO SCH (08:09)
[2020-11-15] MEDS: CLOPIDOGREL 75 MG TAB PO SCH (08:10)
[2020-11-15] MEDS: AMIODARONE 200 MG TAB (PACERONE) PO SCH ×3 (08:10→21:05)
[2020-11-15] MEDS: MIDODRINE 5 MG TAB PO SCH ×3 (08:10→17:03)
[2020-11-15] MEDS: POTASSIUM CHLORIDE 10 MEQ SR TABLET PO SCH ×3 (08:10→17:11)
[2020-11-15] MEDS: PREPARATION H SUPP (HEMORRHOID) PR SCH ×2 (08:11→21:05)
[2020-11-15] MEDS: ENOXAPARIN 40MG/0.4ML SYRINGE (J1650 PER 10MG) SC SCH (08:11)
[2020-11-15] MEDS: ONDANSETRON 4MG/2ML VIAL IV PRN (08:15)
[2020-11-15] MEDS: PIPERACILLIN/TAZOBACTAM SOD 3.375 GM in D5W MINI-BAG PLUS 50 ML IV SCH ×3 (11:02→21:08)
[2020-11-15 12:00] VITALS: BP 130/61
--- NOTE | 2020-11-15 12:40 | IPN ---
PROGRESS NOTE DATE: 11/15/2020 SUBJECTIVE: The patient had complaints of dysphagia yesterday, evaluated by speech therapist with recommendations to have thin liquids and continue with the current diet. Medications to be crushed and given in puree Speech therapy once a week to follow up. Currently has had no fever, no chills. Heart rate remains about 100-116. Given IV amiodarone yesterday. Currently on ceftriaxone, azithromycin for pneumonia with decreasing white count. The patient is noted to have decreasing hemoglobin. Awaiting stool for hemoccult but prior history of rectal CA with bleeding. We will transfuse if needed. OBJECTIVE: VITAL SIGNS: Temperature 97.7, pulse 95, respiratory rate 22, blood pressure 126/61, 99% on room air. GENERAL: Generally the patient is much more awake and alert, speaking more today. He is in mild distress but no tracheal deviation, nasal flaring or stridor. No use of respiratory accessory muscles but does have about seven to eight word conversational dyspnea. NECK: Thick. No stridor. No carotid bruits. LUNGS: Diminished with fine crackles at bilateral bases. HEART: S1, S2, irregularly irregular, tachycardic at times. ABDOMEN: Distended. Positive bowel sounds times four quadrants, no rebound or guarding. EXTREMITIES: Chronic edema. Laboratory data, imaging studies, microbiology have all been reviewed. ASSESSMENT AND PLAN: This is a 80-year-old male with recent diagnosis of colorectal adenocarcinoma with plans for partial colectomy later this month who presented with acute GI bleed, found to have [id number] renal failure. Atrial fibrillation with RVR, hypotension, metabolic acidosis, and a new left lower lobe pneumonia with persistent anemia, iron deficiency. CURRENT ISSUES ARE FOLLOWS: 1. Left lower lobe pneumonia, hospital health care-associated. 2. Atrial fibrillation with RVR with hypotension. 3. Anemia with iron deficiency. PLAN: The patient is continued on conservative management. Nephrology consulted to manage the patient's fluid balance. His atrial fibrillation remains stable, somewhat controlled on amiodarone by mouth to be given with applesauce. Continue with antibiotics. PT/OT, activity as tolerated. Acute rehab unit screen. Outpatient follow up with General Surgery regarding new diagnosis of colorectal cancer. [facility] [place]
[2020-11-15 13:08] LABS: BODY FLUID CULTURE Not indicated. (.); LEGIONELLA ANTIGEN URINE Negative (Negative); ORGANISM ID Not indicated. (.); SPECIMEN SOURCE Urine (.); URINE STREP PNEUMONIAE ANTIGEN Negative (Negative)
[2020-11-15 18:00] VITALS: BP 144/66
[2020-11-15] MEDS: POTASSIUM CHLORIDE 10% LIQ 20 MEQ/15 ML UDC PO SCH ×2 (18:00→21:05)
--- NOTE | 2020-11-15 18:29 | HPEPDOC ---
[facility] Medical History & Physical Date of Admission Nov 15, 2020 Date of Service: Nov 15, 2020 History and Physical H&P DICTATED JOB # [id number] a/p: 85 y/o full code [place] significant for htn, prostate ca s/p prostatectomy, GERD, dyslipidemia, OA was in his usual state of health until today when he slipped while walking from the house to the boathouse slipping on stepping stones covered twisting his ankle, landing on his front right side, and was immediately assisted by his friend who was walking in front of him. In the ER, pt was found to have a right bimalleolar ankle fracture. Ortho Dr. Peter recommended surgey on 11/16/20. Medical clearance: pt has no acute cardiac ischemic symptoms, cxr: no edema, and no prior h/o hemodynamically significant valvular disease, CAD/[place], CHF in the past. Pt will be started on his home bp meds. ASA discontinued. He does not take any other antiplatelet or anticoagulants. Pt is medically optimized to proceed to surgery. npo after midnight. ivfluids to prevent hypoglycemia to start at 0500am tomorrow. check pt/ptt/inr.prnn pain meds and antiemetics Right bimalleolar fracture due to mechanical fall HTN, uncontrolled-resumed home meds GERD, PPI Dyslipidemia vit d def prostate ca s/p prostatectomy obesity complicating care. alessandra protocol Vital Signs Vital Signs Date Time Temp Pulse Resp B/P (MAP) Pulse Ox O2 Delivery O2 Flow Rate FiO2 11/15/20 04:00 97.7 95 22 126/61 (82) 99 Room Air 11/12/20 04:00 2.0 Laboratory Data Labs 24H Laboratory Tests 2 11/14/20 21:07: Bedside Glucose (Misc Panel) 203H 11/15/20 06:05: Bedside Glucose (Misc Panel) 208H 11/15/20 12:05: Bedside Glucose (Misc Panel) 264H 11/15/20 16:48: Bedside Glucose (Misc Panel) 240H Microbiology Microbiology 11/12/20 Gram Stain - Final, Complete 11/12/20 Sputum Culture - Final, Complete 11/12/20 Blood Culture - Preliminary, Resulted No Growth after 72 hours. All specime... 11/05/20 Respiratory Virus Panel (PCR) (SUDHIR) - Final, Complete Home Medications Scheduled Apixaban (Eliquis) 5 Mg Tablet, 5 MG PO BID Canagliflozin (Invokana) 100 Mg Tablet, 100 MG PO DAILY Clopidogrel Bisulfate (Plavix) 75 Mg Tablet, 75 MG PO DAILY Metoprolol Succinate (Metoprolol Succinate) 100 Mg Tab.er.24h, 100 MG PO DAILY Metoprolol Succinate (Metoprolol Succinate) 100 Mg Tab.er.24h, 50 MG PO QHS Simvastatin (Simvastatin) 40 Mg Tablet, 40 MG PO QHS Sitagliptin (Januvia) 50 Mg Tablet, 50 MG PO DAILY Allergies Coded Allergies: Sulfa (Sulfonamide Antibiotics) (Verified Allergy, Unknown, 10/18/20) A-FIB/CHADSVASC A-FIB History Current/History of A-Fib/PAF?: No Current PO Anticoag Therapy: No Age/Risk Factor Scoring CHADSVASC: CHADSVASC Response (Comments) Value Age Risk Factor Age >/= 75 years old 2 Gender Risk Factor Male 0 Hx of CHF No 0 Hx of HTN Yes 1 Hx of Stroke/TIA/or VTE No 0 Hx of Diabetes No 0 Hx of Vascular Disease No 0 Total 3 Treatment Treatment ordered: NONE WENDY HENDERSON MD Nov 15, 2020 18:29
--- NOTE | 2020-11-15 19:40 | REP ---
INDICATION: RIGHT ARM SWELLING R/O DVT COMPARISON: None. None TECHNIQUE: Dhaliwal scale and color Doppler evaluation using linear high frequency transducer. FINDINGS: Ultrasound examination of the right upper extremity including jugular, subclavian, axillary, cephalic, basilic and brachial veins demonstrates normal compressibility flow and flow characteristics without evidence for deep venous thrombosis. Contralateral subclavian is patent and normal. IMPRESSION: No evidence for deep venous thrombosis right upper extremity. <Electronically signed by Velasquez Arroyo > 11/15/201935
[2020-11-15 20:00] VITALS: BP 140/63
[2020-11-16] VITALS (14 sets, daily range): BP systolic 109–129; BP diastolic 51–81
[2020-11-16] MEDS: LEVALBUTEROL 1.25 MG/0.5 ML CONCENTRATE NEB INH SCH ×4 (01:04→19:40)
[2020-11-16] MEDS: PIPERACILLIN/TAZOBACTAM SOD 3.375 GM in D5W MINI-BAG PLUS 50 ML IV SCH ×4 (04:15→21:11)
[2020-11-16 05:17] LABS: HEMATOCRIT 23.2 % (42.0-52.0); HEMOGLOBIN 7.5 g/dl (13.5-17.5); MEAN CORPUSCULAR HEMOGLOBIN 30.5 pg (27.0-33.0); MEAN CORPUSCULAR HGB CONC 32.3 g/dl (32.0-36.5); MEAN CORPUSCULAR VOLUME 94.3 fl (80.0-96.0); PLATELET COUNT, AUTOMATED 241 10^3/uL (150-450); RED BLOOD COUNT 2.46 10^6/uL (4.30-6.10); WHITE BLOOD COUNT 10.5 10^3/uL (4.0-10.0)
[2020-11-16 05:40] LABS: ALBUMIN 1.8 GM/DL (3.2-5.2); CALCIUM LEVEL 7.3 MG/DL (8.8-10.2); CREATININE FOR GFR 1.74 MG/DL (0.70-1.30); GLOMERULAR FILTRATION RATE 40.5 (>42); PHOSPHORUS LEVEL 2.1 MG/DL (2.5-4.9); POTASSIUM SERUM 3.9 MEQ/L (3.5-5.1)
[2020-11-16] MEDS: METOCLOPRAMIDE INJ 10MG/2ML VIAL (J2765 PER 1) IV SCH ×2 (06:53→11:39)
[2020-11-16] MEDS: ENOXAPARIN 40MG/0.4ML SYRINGE (J1650 PER 10MG) SC SCH (07:27)
[2020-11-16] MEDS: POTASSIUM CHLORIDE 10% LIQ 20 MEQ/15 ML UDC PO SCH ×2 (07:27→12:25)
[2020-11-16] MEDS: SIMETHICONE 80MG CHEW TAB PO SCH ×2 (07:27→12:25)
[2020-11-16] MEDS: AZITHROMYCIN 250MG TABLET PO SCH (07:28)
[2020-11-16] MEDS: AMIODARONE 200 MG TAB (PACERONE) PO SCH (07:28)
[2020-11-16] MEDS: MIDODRINE 5 MG TAB PO SCH ×2 (07:28→11:40)
[2020-11-16] MEDS: CLOPIDOGREL 75 MG TAB PO SCH (07:28)
[2020-11-16] MEDS: SPIRONOLACTONE 25 MG TAB PO SCH ×2 (07:28→17:00)
[2020-11-16] MEDS: PREPARATION H SUPP (HEMORRHOID) PR SCH ×2 (07:29→21:11)
[2020-11-16] MEDS: HumaLOG INSULIN (NovoLOG) PER UNIT SC SCH ×4 (07:29→20:41)
[2020-11-16] MEDS ORDERED: AMIODARONE HCL 150 MG in IV 1 EA IV STA (08:01)
[2020-11-16] MEDS: BUMETANIDE 1 MG TAB PO SCH (09:01)
--- NOTE | 2020-11-16 11:17 | IPN ---
PROGRESS NOTE DATE: 11/16/2020 SUBJECTIVE: The patient is still having some dysphagia, but evaluated by speech therapy able to take in diet with no signs of aspiration. Taking his amiodarone with apple sauce. The patient is currently on Bumex and Spironolactone. Urine output has been adequate 950/-50. Current weight is 129 kg from previous weight of 131 kg. Right upper extremity was much more edematous yesterday. Ultrasound to rule out DVT was negative of the upper extremity. The patient continues to have a cough productive of white sputum without fever or chills. OBJECTIVE: VITAL SIGNS: Temperature 97.2, pulse 93, respiratory rate 24, blood pressure 125/71, 99% on room air. GENERAL: The patient is much more awake, alert, and able to speak in full sentences. He has no use of respiratory accessory muscles. Left subclavian line is clean without any erythema or cellulitic changes. NECK: No JVD. No thyromegaly. No cervical lymphadenopathy. LUNGS: Diminished with coarse rhonchi bilaterally. HEART: S1, S2. Irregularly irregular and tachycardic. ABDOMEN: Obese, soft, nontender, and nondistended. EXTREMITIES: Chronic edema. DIAGNOSTIC STUDIES: Laboratory data and imaging studies have all been reviewed. ASSESSMENT: This is a 80-year-old with diagnosis of colorectal adenocarcinoma with plans for partial colectomy later this month who presented with gastrointestinal (GI) bleed, acute on chronic renal failure, hypotension, metabolic acidosis, shortness of breath with atrial fibrillation (AFib) with rapid ventricular response (RVR) transferred to progressive care unit (PCU) now with a new left lower lobe pneumonia, persistent anemia with iron deficiency, and dysphagia requiring modified diet with apple sauce with his pills. IMPRESSION: 1. Left lower lobe pneumonia. 2. AFib with RVR with hypotension. 3. Anemia with iron deficiency. 4. Colorectal cancer. 5. Acute GI bleed with hemoglobin of 7.5, hematocrit of 23 on chronic renal insufficiency. 6. Acute on chronic renal insufficiency. 7. Metabolic acidosis due to renal failure, resolved. 8. Electrolyte abnormalities with prior hypokalemia, resolved. 9. Type 2 diabetes. 10. Obesity. 11. Hypertension. 12. History of coronary artery disease (CAD) status post stents on Plavix. 13. Aortic stenosis status post aortic valve replacement. PLAN: The patient is still not tolerating and having issues with dysphagia, but evaluated by speech therapy and okay to take his amiodarone with apple sauce. At this time, the patient will be given one dose of intravenous (IV) amiodarone for better rate control. He is much more anemic today and will need blood transfusion with history of colorectal adenocarcinoma with recent GI bleed requiring blood transfusion. Creatinine is stable and diuresing well. Right upper extremity ultrasound was negative for deep vein thrombosis (DVT). Held plavix In light of the anemia, will need to hold off on full anticoagulation for afib for now until gi bleed is stabilized. check ct abd/pelvis r/o retroperitoneal bleed from recent surgery. The patient's electrolyte abnormalities have resolved. He continues to have protein-calorie malnutrition despite a body mass index (BMI) of 38.7, albumin of 1.8. Continue with current diet. Continue telemetry for now. MTDD
--- NOTE | 2020-11-16 11:53 | IPN ---
NEPHROLOGY PROGRESS NOTE DATE: 11/16/2020 SUBJECTIVE: Mr. Monson is seen this morning at his bedside. He was sleepy and I woke him up. He feels well and reports that he slept well through the night. He denies any nausea or vomiting, however his appetite has been poor. The patient denies any dyspnea or chest pain. Yesterday he had a Doppler ultrasound of the right upper extremity which was negative for DVT. OBJECTIVE: PHYSICAL EXAMINATION: VITAL SIGNS: Temperature is 96.3 degrees Fahrenheit, heart rate 100 per minute, respiratory rate 25 per minute, blood pressure 124/56 mm of mercury and oxygen saturation is 99% on room air. INTAKE AND OUTPUT: Records from yesterday show a negative fluid balance of only 50 mL. HEENT: His head is atraumatic. NECK: Neck veins are difficult to be assessed. HEART: Irregular and tachycardic. LUNGS: Diminished breath sounds at the bases. ABDOMEN: Soft and protuberant. Surgical incisions are clean and colt are intact. Bowel sounds are normal. EXTREMITIES: Without any cyanosis or clubbing. Generalized edema on all four limbs is noticed. LABORATORY STUDIES: Today's labs show a WBC count of 10.5, hemoglobin 7.5 and hematocrit 23.2, platelet count 241. Sodium 142, potassium 3.9, CO2 21, BUN 30 and creatinine 1.74. Calcium level is 7.3 and phosphorous 2.1. Albumin level is only 1.8. PROBLEMS: 1. Acute kidney injury superimposed on chronic kidney disease - kidney function is gradually improving and there is no emergent need for dialysis. 2. Generalized edema and hypervolemia - The patient is quite edematous and blood pressure has been low previously. Now his blood pressure has improved, so I am going to try to diurese him. We will start with Spironolactone 25 mg twice daily and Bumetanide one mg daily. We will monitor the urine output and make adjustments as needed. 3. Hypokalemia his potassium level has improved and he remains on high dose potassium supplement. I am also adding Spironolactone 25 mg twice daily in addition to Bumetanide. We will need to monitor his electrolytes on a daily basis. 4. Severe iron deficiency anemia his anemia is getting worse and he also has iron deficiency due to blood loss. The patient is likely to require a transfusion. I will hold off on intravenous at this point and transfuse him as needed. 5. Metabolic acidosis acidosis has improved and I am going to stop his sodium bicarbonate. 6. Hypertension - blood pressure remains low and he is still on Midodrine 10 mg three times daily. 7. Pneumonia - The patient continues with antibiotics including Zosyn and Azithromycin. Ceftriaxone has been stopped now. 8. Atrial fibrillation his rate is reasonably well controlled now and Amiodarone has been stopped. He is currently on Lovenox. Amiodarone dose is now 400 mg three times daily and has not been stopped. The intravenous Amiodarone has been stopped.
[2020-11-16] MEDS: ONDANSETRON 4MG/2ML VIAL IV PRN (13:47)
[2020-11-16] MEDS ORDERED: DIGOXIN INJ 0.5 MG/2 ML AMP (J1160) IV STA (14:59)
--- NOTE | 2020-11-16 15:47 | IPNPDOC ---
Date Seen The patient was seen on 11/16/20. Progress Note new onset HEMATEMESIS while completing rbc transfusion a/p: Acute UGIBleed Acute Blood loss anemia Afib w RVR 110-120bpm plan: npo dc po meds iv protonix 80 mg bolus, then 10ml/hr dc plavix-plt transfusion if ongoing gi bleed dc lovenox transfuse to keep hgb>[address] Shay was consulted for colorectal ca amiodarone iv gtt until rate controlled. once rate controlled afib,optimized for egd. euvolemic on po spironolactone and bumex. VS, I&O, 24H, Fishbone Vital Signs/I&O Vital Signs Date Time Temp Pulse Resp B/P (MAP) Pulse Ox O2 Delivery O2 Flow Rate FiO2 11/16/20 15:16 108 11/16/20 14:48 97.3 22 118/53 97 Room Air 11/12/20 04:00 2.0 I&O- Last 24 Hours up to 6 AM 11/16/20 06:00 Intake Total 720 ml Output Total 1100 ml Balance -380 ml Laboratory Data 24H LABS Laboratory Tests 2 11/15/20 16:48: Bedside Glucose (Misc Panel) 240H 11/15/20 21:03: Bedside Glucose (Misc Panel) 166H 11/16/20 04:46: Nucleated Red Blood Cells % (auto) 0.3H, Anion Gap 9, Glomerular Filtration Rate 40.5L, Calcium Level 7.3L, Phosphorus Level 2.1L, Albumin 1.8L 11/16/20 11:29: Bedside Glucose (Misc Panel) 232H 11/16/20 15:15: CBC/BMP Laboratory Tests 11/16/20 04:46 Microbiology Microbiology 11/12/20 Gram Stain - Final, Complete 11/12/20 Sputum Culture - Final, Complete 11/12/20 Blood Culture - Preliminary, Resulted No Growth after 72 hours. All specime... WENDY HENDERSON MD Nov 16, 2020 15:47
[2020-11-16] MEDS ORDERED: AMIODARONE HCL 360 MG in IV 1 EA IV SCH (16:00)
[2020-11-16] MEDS ORDERED: PANTOPRAZOLE 40MG VIAL (C9113 PER 1) IV ONE (16:00)
[2020-11-16] MEDS ORDERED: PROMETHAZINE INJ 25 MG/ML VIAL (J2550) IV ONE (16:00)
--- NOTE | 2020-11-16 16:13 | REP ---
INDICATION: anemia s/p resection colorectal ca COMPARISON: 10/21/2020 TECHNIQUE: Axial noncontrast images from the lung bases to the pubic symphysis with coronal and sagittal reformations. This CT examination was performed using the following dose reduction techniques: Automated exposure control, adjustment of mA and/or kv according to the patient's size, and use of iterative reconstruction technique. FINDINGS: Lung bases demonstrate small pleural effusions and bibasilar atelectasis along with findings to suggest pulmonary vascular congestion. There is significant distension of the stomach and duodenum to the level of the ligament of Treitz which warrants correlation to exclude duodenitis or some form of occult mechanical obstruction. Further evaluation of the bowel demonstrates prior resection and anastomosis at the level of the rectosigmoid. Adjacent fat stranding may be postsurgical in nature. There is no evidence for bowel obstruction or free air to suggest perforation. No ascites. Liver, spleen, pancreas, and bilateral adrenal glands appear normal. Gallbladder appears mildly prominent possibly demonstrating vicarious excretion of contrast from prior examinations. No wall thickening or discrete pericholecystic stranding is appreciated to suggest acute cholecystitis. Kidneys demonstrate stable bilateral complex hypodensities which cannot be further characterized but likely represent benign complex cysts. Pelvis demonstrates Cedeno catheter in collapsed bladder and age-appropriate prostate/seminal vesicles. No ascites. No free air. Atherosclerotic changes to the aorta and vasculature without aneurysm. Musculoskeletal structures demonstrate degenerative changes without focal osseous abnormality. IMPRESSION: 1. There is significant distension to the stomach and duodenum with stranding along the proximal duodenum including few adjacent lymph nodes. An underlying duodenitis or element of occult obstruction must be considered. 2. Further relatively nonacute findings as described above. 3. Mild bibasilar atelectasis and small pleural effusions. <Electronically signed by Velasquez Arroyo > 11/16/20 [id number]
[2020-11-16] MEDS: PANTOPRAZOLE SODIUM 40 MG in D5W 50 ML IV SCH ×2 (17:01→21:11)
[2020-11-16] MEDS: METOPROLOL 5 MG/5 ML VIAL IV SCH ×2 (17:49→18:05)
[2020-11-16] MEDS ORDERED: ONDANSETRON 4MG/2ML VIAL IV ONE (18:00)
--- NOTE | 2020-11-16 19:59 | IPN ---
PROGRESS NOTE DATE: 11/16/2020 HISTORY: The patient is a 80-year-old man who is now 11 days postop from a robotic assisted laparoscopic rectosigmoid resection with coloproctostomy. He has a number of active medical problems and had also suffered some acute renal failure following the surgery. He had been making progress and was taking a regular diet with return of some bowel function. Today he reports that he had some coughing, I believe it was on a medication, and actually brought up some blood. He has been receiving a blood transfusion at the direction of Dr. Paniagua. He also had some tachycardia associated with atrial fibrillation with a rapid ventricular response and Dr. Paniagua has been addressing this issue as well. OBJECTIVE: VITAL SIGNS: The patient has been afebrile over the past 24 hours. His pulse had been generally in the 70's to 90's over the last 24 hours until this morning when it has been as high as 130 recorded. His blood pressure is good and is room air oxygen saturation is normal. INTAKE AND OUTPUT: Yesterday he had 900 mL of oral intake recorded with 950 mL of urine output and a number of incontinent bowel movements. PHYSICAL EXAMINATION: GENERAL APPEARANCE: The patient is an older man propped up in the bed. He has some obesity. He is responsive to questions and appears alert otherwise. SKIN: Warm and dry. HEART: Regular rhythm and he is now at a rate in the upper 70's. LUNGS: Good bilateral breath sounds. ABDOMEN: Quite protuberant. The bowel sounds seem diminished. He has several incisions across the abdomen closed with colt and there is a drain site with an occlusive dressing in the right lower quadrant. The abdomen is full but without undue tenderness. LABORATORY STUDIES: Early this morning white count of 10, hemoglobin 8, hematocrit 23 and a platelet count of 241,000. The hemoglobin and hematocrit are down from 9 and 26 on the . His chemistries today, early this morning, showed a sodium of 142, potassium 3.9, chloride 112, CO2 of 21, BUN of 30, creatinine 1.7 and a glucose of 210. Albumin is only 1.8 today. IMAGING: The patient had undergone a CT scan of the abdomen and pelvis ordered by Dr. Paniagua this afternoon. This showed bilateral pleural effusions and some bilateral lower lobe atelectasis. The stomach appeared somewhat distended and fluid filled. The exam otherwise shows evidence for his recent bowel resection with a staple line in the rectosigmoid region. There was no free air or significant free fluid. The patient had undergone an EGD back on the 21 of October that showed some duodenitis and gastritis but no discreet ulcerations and no signs of fleeting. IMPRESSION: The patient today was noted to be anemic and there was a drop in the hematocrit from 25.7 on the to 23.2 today. He had a small amount of hematemesis but reports he has been having bowel movements without any evidence of blood. The extent of any bleeding is unclear at this point. Some of this may represent a hydration change and potentially some blood loss from his surgery. The CT scan showed no evidence of intraabdominal bleeding. He is receiving blood as ordered by Dr. Paniagua and his tachycardia has apparently resolved. PLAN: 1. I will continue to monitor the patient for any evidence for ongoing bleeding. 2. He will have follow up labs after his ordered transfusion. 3. If necessary, a repeat upper endoscopy could be performed, although in the absence of active bleeding, I think is unlikely to change the medical management of this patient. [facility]
[2020-11-16] MEDS ORDERED: PROMETHAZINE INJ 25 MG/ML VIAL (J2550) IV PRN (20:00)
[2020-11-16 21:20] LABS: HEMATOCRIT 25.3 % (42.0-52.0); HEMOGLOBIN 8.2 g/dl (13.5-17.5)
[2020-11-16] MEDS: AMIODARONE HCL 360 MG in IV 1 EA IV SCH (22:34)
[2020-11-17] VITALS (13 sets, daily range): BP systolic 103–153; BP diastolic 56–75
[2020-11-17] MEDS: LEVALBUTEROL 1.25 MG/0.5 ML CONCENTRATE NEB INH SCH ×4 (01:04→20:06)
[2020-11-17] MEDS: PANTOPRAZOLE SODIUM 40 MG in D5W 50 ML IV SCH ×5 (01:56→22:00)
[2020-11-17] MEDS: PIPERACILLIN/TAZOBACTAM SOD 3.375 GM in D5W MINI-BAG PLUS 50 ML IV SCH ×4 (04:01→20:51)
[2020-11-17 06:15] LABS: BASO # 0.1 10^3/uL (0.0-0.2); BASO % 0.8 % (0.0-1.0); EOS # 0.1 10^3/uL (0.0-0.5); EOS % 1.1 % (0.0-3.0); HEMATOCRIT 26.9 % (42.0-52.0); HEMOGLOBIN 8.9 g/dl (13.5-17.5); LYMPH # 1.4 10^3/uL (1.5-5.0); LYMPH % 15.4 % (24.0-44.0); MEAN CORPUSCULAR HEMOGLOBIN 30.8 pg (27.0-33.0); MEAN CORPUSCULAR HGB CONC 33.1 g/dl (32.0-36.5); MEAN CORPUSCULAR VOLUME 93.1 fl (80.0-96.0); MONO # 0.6 10^3/uL (0.0-0.8); NEUTROPHILS # 6.4 10^3/uL (1.5-8.5); NEUTROPHILS % 71.1 % (36.0-66.0); PLATELET COUNT, AUTOMATED 232 10^3/uL (150-450); RED BLOOD COUNT 2.89 10^6/uL (4.30-6.10)
[2020-11-17 06:39] LABS: CALCIUM LEVEL 7.2 MG/DL (8.8-10.2); CREATININE FOR GFR 1.66 MG/DL (0.70-1.30); GLOMERULAR FILTRATION RATE 42.8 (>42); POTASSIUM SERUM 3.3 MEQ/L (3.5-5.1)
--- NOTE | 2020-11-17 07:42 | REP ---
INDICATION: distention COMPARISON: None. TECHNIQUE: Supine view of the abdomen and pelvis. FINDINGS: Examination is limited by portable technique and incomplete evaluation of the abdomen. Visualized small and large bowel demonstrates air-filled loops without evidence for obstruction or obvious perforation. Postsurgical changes noted with colt in the left lower quadrant. IMPRESSION: Limited examination with air-filled loops of small and large bowel raising the possibility of ileus. <Electronically signed by Velasquez Arroyo > 11/17/20 [id number]
[2020-11-17] MEDS: PREPARATION H SUPP (HEMORRHOID) PR SCH ×2 (07:58→20:51)
[2020-11-17] MEDS: HumaLOG INSULIN (NovoLOG) PER UNIT SC SCH ×3 (08:06→18:28)
[2020-11-17] MEDS ORDERED: DIGOXIN INJ 0.5 MG/2 ML AMP (J1160) IV ONE (08:10)
[2020-11-17] MEDS ORDERED: KCL 10MEQ/100ML SWI (KRUN) 10 MEQ in IV 1 EA IV SCH (09:00)
--- NOTE | 2020-11-17 09:35 | IPN ---
NEPHROLOGY PROGRESS NOTE DATE: 11/15/2020 SUBJECTIVE: Mr. Monson is seen this morning on his bedside. He is lying in the bed without any acute distress. He denies any nausea or vomiting. He denies any shortness of breath at present. PHYSICAL EXAMINATION: Temperature 98 degrees Fahrenheit, heart rate 86 per minute, respiratory rate 22 per minute, blood pressure 130/61 mmHg, oxygen saturation 100% on room air. HEAD: Atraumatic. NECK: Supple and jugular venous distention (JVD) difficult to be assessed. HEART SOUNDS: Irregular in rhythm. LUNGS: Diminished breath sounds at lower lungs. ABDOMEN: Soft, protuberant and nontender. Surgical incisions are clean and colt are intact. EXTREMITIES: Without any cyanosis or clubbing. Right upper extremity has 2+ edema and lower extremities have bilateral 2+ edema. NEUROLOGIC: He is awake and able to answer questions. Patient did not have any new labs done today. PROBLEMS: 1. Acute kidney injury superimposed on chronic kidney disease. His creatinine was 1.9 yesterday and urine output has been gradually improving. Yesterday, his urine output was 1200 mL. Will check his renal profile tomorrow and continue to monitor his renal function closely. 2. Congestive heart failure/hypervolemia. Patient has significant peripheral edema and his hypotension has now improved. I feel the patient will need diuresis and after checking his labs tomorrow, I will resume diuretic therapy. 3. Hypokalemia. Patient had persistent hypokalemia and has been receiving oral potassium supplement. We will recheck his electrolytes tomorrow. 4. Anemia. His anemia is multifactorial. At present, there is no emergent need for a transfusion. We will check his CBC tomorrow. 5. Metabolic acidosis. Patient has been on oral sodium bicarbonate supplements and we will check his chemistry tomorrow and consider stopping sodium bicarbonate if his acidosis is improved. 6. Pneumonia. Patient remains on ceftriaxone and Zosyn in addition to azithromycin. He is currently afebrile. [facility]
[2020-11-17] MEDS: SPIRONOLACTONE 25 MG TAB PO SCH ×2 (09:58→18:29)
[2020-11-17] MEDS: BUMETANIDE 1 MG TAB PO SCH (09:58)
[2020-11-17] MEDS: AMIODARONE HCL 360 MG in IV 1 EA IV SCH (09:59)
[2020-11-17] MEDS ORDERED: KCL 20MEQ IN 100ML SWI (KRUN) 20 MEQ in IV 1 EA IV ONE ×2 (10:00)
--- NOTE | 2020-11-17 10:40 | IPN ---
PROGRESS NOTE DATE: 11/17/2020 Patient has been kept nothing by mouth due to hematemesis yesterday, currently receiving red blood cell (RBC) transfusion with hemoglobin dropping down to 7.5 yesterday, currently at 8.9, still due to receive one more unit. Patient has symptomatic anemia with complaints of worsening shortness of breath. He has had no fever, no chills. Patient had no bright red blood per rectum. Atrial fibrillation with rapid ventricular rate (RVR), was uncontrolled yesterday and required IV amiodarone drip and IV Protonix started. This morning, he denies any chest pain, pressure, or tightness. Complains of slight shortness of breath, generalized weakness, cough productive of white sputum. Patient is medically unstable to proceed with EGD at this time until patient's atrial fibrillation is rate controlled and off amiodarone drip. Patient's finger sticks have been changed to every 6 hours with sliding scale coverage. Will need to discuss with nephrology regarding dextrose 5% (D5) half-normal saline for nutrition to prevent hypoglycemia while patient is nothing by mouth. PHYSICAL EXAMINATION: Vital signs: Temperature 97.1, pulse 79, respiratory rate 20, blood pressure 127/59, 89% on room air. Generally: Patient is awake, alert, oriented to person and place, answering questions appropriately, he is in mild distress, positive 8-9 word conversational dyspnea. Lungs: Diminished with bilateral rhonchi, crackles at the left base. Heart: S1, S2, irregularly irregular, not tachycardic. Abdomen: Distended, doughy, positive bowel sounds times four quadrants, no rebound or guarding. Extremities: No cyanosis, 2+ pitting edema bilaterally. LABORATORY DATA: CBC, metabolic panel, imaging studies, microbiology have been reviewed. ASSESSMENT AND PLAN: This is a 80-year-old male with history of coronary artery disease (CAD), stent November 2019, had previously been on Plavix, chronic atrial fibrillation, was on anticoagulants, held due to gastrointestinal (GI) bleed, found to have new colorectal cancer (CA), awaiting partial colectomy, but presented due to shortness of breath, was found to have acute on chronic renal failure, atrial fibrillation with rapid ventricular rate (RVR), transferred emergently to progressive care unit (PCU) for IV amiodarone due to hypotension requiring midodrine. Patient's acute issues are as follows: 1. Hematemesis with acute blood loss, upper gastrointestinal (GI) bleed with hemoglobin of 7.5 in the setting of chronic Plavix use and previous oral anticoagulation for chronic atrial fibrillation in the setting of chronic renal insufficiency. 2. Left lower lobe pneumonia. 3. Atrial fibrillation with rapid ventricular rate complicated by hypotension requiring midodrine, now nothing by mouth status. 4. Colorectal cancer. 5. Acute on chronic renal insufficiency. 6. Metabolic acidosis due to renal failure, resolved. 7. Electrolyte abnormalities with hypokalemia, resolved. 8. Type 2 diabetes. 9. Obesity. 10. Hypertension currently with low blood pressure. 11. History of coronary artery disease (CAD) and stent. Last stent was placed 11/2019. Off Plavix due to acute gastrointestinal (GI) bleed. 12. History of aortic stenosis status post aortic valve replacement. Off anticoagulation. Bioprosthetic valve most likely. PLAN: Patient is currently medically unstable due to atrial fibrillation with rapid ventricular rate (RVR) requiring amiodarone intravenous drip to proceed with EGD. Patient will need to be stabilized prior to medical clearance for EGD. He will be transfused red blood cells (RBCs) until hemoglobin is at 9. He has ongoing hematemesis and has been given Protonix intravenously via the triple lumen catheter in the left subclavian. Previous EGD showed gastritis. He has recent diagnosis of colorectal cancer but has not had any bright red blood per rectum or melena. General surgery is following. Patient is still on IV Zosyn for the left lower lobe pneumonia which was hospital acquired. Nephrology is consulted for diuresis. He is currently with nothing by mouth with finger sticks changed to every 6 hours and may need low dose dextrose 5% (D5) for prevention of hypoglycemia.
--- NOTE | 2020-11-17 10:57 | REP ---
INDICATION: SOB COMPARISON: 11/14/2020 TECHNIQUE: Portable AP view of the chest FINDINGS: Left subclavian catheter with tip in the SVC remains stable. The mediastinum and cardiac silhouette are stable and within normal limits for portable technique. The lung pandey demonstrate stable chronic appearing changes without acute consolidation or pneumothorax. Trace left basilar atelectasis and small pleural reaction cannot definitively be excluded. Skeletal structures are intact. IMPRESSION: Questionable trace left basilar atelectasis and small pleural reaction. <Electronically signed by Velasquez Arroyo > 11/17/20 [id number]
--- NOTE | 2020-11-17 12:56 | IPN ---
NEPHROLOGY PROGRESS NOTE DATE: 11/17/2020 SUBJECTIVE: Mr. Monson is seen this morning on his bedside. He is feeling about the same and reports liquid stools. Nursing staff reports that his intake and output was not recorded accurately as patient did have about 1 liter oral intake yesterday, even though he was supposed to be nothing by mouth (NPO). He denies any dyspnea, chest pain, fever or chills. PHYSICAL EXAMINATION: VITAL SIGNS: This morning, temperature 97.3degrees Fahrenheit, heart rate 82 per minute, respiratory rate 20 per minute, blood pressure 128/64 mmHg, oxygen saturation 98% on room air. HEAD: Atraumatic. NECK: Supple and jugular venous distention (JVD) difficult to be assessed. HEART SOUNDS: Irregular in rhythm. LUNGS: Diminished breath sounds at bases. ABDOMEN: Obese, soft and nontender. Bowel sounds are present. EXTREMITIES: Without any cyanosis or clubbing. NEUROLOGIC: He is awake and without a focal deficit. LABORATORY DATA: Today's labs show WBC 9.0, hemoglobin 8.9, hematocrit 26.9. Sodium 141, potassium 3.3, CO2 21, BUN 34, creatinine 1.66. PROBLEMS: 1. Acute kidney injury. Kidney function is gradually improving. At this point, we will continue to monitor his renal function closely as he is being diuresed. 2. Hypervolemia with generalized anasarca. Patient does have significant peripheral edema and also has chronic low albumin. We started with bumetanide 1 mg daily and spironolactone 50 mg twice a day. His intake and output has not been recorded accurately. At this point, we will continue with current diuretics and monitor his urine output. 3. Hypokalemia. Hermilo likely related to poor oral intake, diarrhea and diuretic. He did receive some potassium supplement and is also receiving spironolactone 50 mg twice a day. Electrolytes will be checked again tomorrow. 4. Anemia. Patient did improve after transfusion. He is feeling better with his symptoms today. He also has iron deficiency and I am holding off on intravenous iron in view of ongoing medical problems. 5. Atrial fibrillation. At present, ventricular rate is well-controlled and he remains on amiodarone and Eliquis.
[2020-11-17 12:58] LABS: HEMATOCRIT 27.7 % (42.0-52.0); HEMOGLOBIN 9.3 g/dl (13.5-17.5)
[2020-11-17 18:41] LABS: HEMATOCRIT 29.2 % (42.0-52.0); HEMOGLOBIN 9.7 g/dl (13.5-17.5)
[2020-11-17] MEDS: AMIODARONE 200 MG TAB (PACERONE) PO SCH (20:51)
[2020-11-18] VITALS (7 sets, daily range): BP systolic 106–118; BP diastolic 48–75
[2020-11-18 00:16] LABS: HEMATOCRIT 28.7 % (42.0-52.0); HEMOGLOBIN 9.6 g/dl (13.5-17.5)
[2020-11-18] MEDS: LEVALBUTEROL 1.25 MG/0.5 ML CONCENTRATE NEB INH SCH ×4 (02:00→19:52)
[2020-11-18] MEDS: PANTOPRAZOLE SODIUM 40 MG in D5W 50 ML IV SCH ×5 (03:08→22:21)
[2020-11-18] MEDS: PIPERACILLIN/TAZOBACTAM SOD 3.375 GM in D5W MINI-BAG PLUS 50 ML IV SCH ×4 (04:10→22:22)
[2020-11-18 05:22] LABS: BASO % 0.6 % (0.0-1.0); EOS # 0.2 10^3/uL (0.0-0.5); EOS % 2.1 % (0.0-3.0); HEMATOCRIT 26.3 % (42.0-52.0); HEMOGLOBIN 8.8 g/dl (13.5-17.5); LYMPH # 1.2 10^3/uL (1.5-5.0); LYMPH % 16.8 % (24.0-44.0); MEAN CORPUSCULAR HEMOGLOBIN 31.1 pg (27.0-33.0); MEAN CORPUSCULAR HGB CONC 33.5 g/dl (32.0-36.5); MEAN CORPUSCULAR VOLUME 92.9 fl (80.0-96.0); MONO # 0.5 10^3/uL (0.0-0.8); MONO % 7.6 % (2.0-8.0); NEUTROPHILS # 4.8 10^3/uL (1.5-8.5); NEUTROPHILS % 68.6 % (36.0-66.0); PLATELET COUNT, AUTOMATED 236 10^3/uL (150-450); RED BLOOD COUNT 2.83 10^6/uL (4.30-6.10)
[2020-11-18 05:41] LABS: CALCIUM LEVEL 7.3 MG/DL (8.8-10.2); CREATININE FOR GFR 1.63 MG/DL (0.70-1.30); GLOMERULAR FILTRATION RATE 43.7 (>42); POTASSIUM SERUM 3.4 MEQ/L (3.5-5.1)
[2020-11-18] MEDS: HumaLOG INSULIN (NovoLOG) PER UNIT SC SCH ×4 (06:27→17:35)
[2020-11-18] MEDS: AMIODARONE 200 MG TAB (PACERONE) PO SCH ×3 (06:27→22:21)
--- NOTE | 2020-11-18 07:08 | IPN ---
PROGRESS NOTE DATE: 11/17/2020 SUBJECTIVE: The patient is a 80-year-old man who is now 12 days postop from a low anterior rectosigmoid resection for cancer. He has underlying cardiac issues with a valve replacement. He has had problems with acute renal failure postop as well. Yesterday, he had evidence for some upper GI bleeding. He had a very small amount of hematemesis and then has had some very dark liquid stools over the last day. He was transfused by the Hospitalist and has now received a total of 4 units of packed red blood cells. He was put on medications for atrial fibrillation with a rapid ventricular rate. He was started on a Protonix drip in response to his evidence for an upper GI bleed. OBJECTIVE: VITAL SIGNS: He has been afebrile over the past 24 hours. His pulse today is in the high 70s to mid 80s. Blood pressure is good with a normal room air oxygen saturation. INTAKE AND OUTPUT: Intake and output shows that yesterday he had 1700 in with 1150 out, all of which was urine. He did have three incontinent bowel movements noted. GENERAL: The patient denies any significant pain currently. He has been tolerating some clear liquids. HEART: Seemingly regular rhythm. LUNGS: Good bilateral breath sounds. ABDOMEN: Protuberant but he has bowel sounds present and the abdomen is soft. His incisions appear to be healing well. LABORATORY DATA: Laboratory studies today showed that as of 10/01 his white count was 9 with a hemoglobin of 9, hematocrit of 27. This showed an improvement from 23.2 on the morning of the 11th for his hematocrit after 3 units of blood. His chemistry profile shows a sodium of 141, potassium 3.3, chloride 113, CO2 21, BUN 34, creatinine of 1.66 which is improved from 1.74 on the 11th and a fasting glucose of 227. IMPRESSION: Patient remains stable. He has had 4 units of packed red blood cells with some improvement in his hemoglobin and hematocrit. He has had a number of dark liquid black-green stools according to the nurse. He appears comfortable. He is tolerating liquids well and having no abdominal pain. He did have some gastritis and duodenitis on an upper endoscopy in mid October prior to his surgery. His anticoagulation is currently on hold and he is receiving a Protonix drip. PLAN: I will continue to monitor his progress. Hopefully, as his anticoagulation and antiplatelet agents wane and the Protonix is in his system for longer, he will stop bleeding and will not need any further transfusions. [facility]
[2020-11-18] MEDS: KCL 10MEQ/100ML SWI (KRUN) 10 MEQ in IV 1 EA IV SCH ×2 (08:21→09:37)
[2020-11-18] MEDS: SPIRONOLACTONE 25 MG TAB PO SCH ×2 (09:37→17:34)
[2020-11-18] MEDS: PREPARATION H SUPP (HEMORRHOID) PR SCH ×3 (09:37→22:21)
[2020-11-18] MEDS: BUMETANIDE 1 MG TAB PO SCH (09:37)
[2020-11-18] MEDS ORDERED: POTASSIUM CHLORIDE 10% LIQ 20 MEQ/15 ML UDC PO ONE (10:55)
[2020-11-18] MEDS ORDERED: POTASSIUM CHLORIDE 10 MEQ SR TABLET PO ONE (11:00)
--- NOTE | 2020-11-18 11:07 | IPNPDOC ---
Text Note Date of Service The patient was seen on 11/18/20. NOTE Subjective: Patient is a 80 year old male with a PMHx of AV replacement (Bioprosthetic), Chronic A. fib s/p ablation (01/2019), CAD s/p stent (2016), Diastolic CHF, DM2, CKD3, recent diagnosis of rectal adenocarcinoma (planned for elective colectomy this month), who presented to the ER with rectal bleeding. Patient was admitted to the hospitalist service for further evaluation and treatment. General surgery has been called on consultation. Patient was seen and examined at the bedside. Currently denies any chest pain, shortness breath, palpitations, nausea, vomiting, abdominal pain or diarrhea. Lower to have some swelling. Objective: Vitals (See below) General: Lying in bed, no acute distress, comfortable, AAOx3 HEENT: NC, AT CVS: +S1S2 Lungs: Fair air entry b/l, -w/r/r Abdomen: Soft, ND, NT Extremities: 2+ edema bilaterally, - Calf tenderness Imaging: XR abdomen 10/30: Bowel obstruction XR abdomen 11/09: 1. Postsurgical changes to the abdomen and pelvis. 2. Bowel gas pattern is relatively nonspecific as described above. Findings likely represent a mild postsurgical ileus and less likely obstruction. CXR 11/14: Findings suggest minimally improved left lower lobe opacity. Vascular US 11/15: No evidence for deep venous thrombosis right upper extremity. CT abdomen / pelvis 11/16: 1. There is significant distension to the stomach and duodenum with stranding along the proximal duodenum including few adjacent lymph nodes. An underlying duodenitis or element of occult obstruction must be considered. 2. Further relatively nonacute findings as described above. 3. Mild bibasilar atelectasis and small pleural effusions. Abdomen XR 11/17: Limited examination with air-filled loops of small and large bowel raising the possibility of ileus. CXR 11/17: Questionable trace left basilar atelectasis and small pleural reaction. Assessment and plan: Left lower lobe pneumonia - Currently denies any significant SOB or cough - Hemodynamically stable, afebrile and saturating well on room air - Imaging noted above - Blood cultures 11/12: No growth at 5 days - c/w Zosyn A. Fib with RVR - s/p Hypotension - c/w Amiodarone - Full anticoagulation with Eliquis on hold (re: Anemia) Decompensated Diastolic CHF - Physical with evidence of fluid overload - c/w Diuresis with Bumetanide / Spironolactone Anemia with iron deficiency - Reported green / dark stools - EGD in mid October revealed gastritis / duodenitis - s/p 4 units PRBC transfusion - Hg remains stable; will continue to trend - c/w Protonix drip Colorectal cancer - s/p Sigmoid resection for colon cancer on 11/[address] Shay - Will need follow up with Oncology Acute on chronic renal insufficiency s/p Metabolic acidosis - likely 2/2 Renal failure Hypokalemia - Will supplement DM2 - c/w ISS Obesity - BMI of 38.8 - Complicating medical care HTN - BP well controlled - Currently only on diuretics CAD s/p stent - c/w Plavix AV stenosis s/p AV replacement with bioprosthetic DVT prophylaxis - c/w TEDs/Sequentials Disposition: - Will likely need rehabilitation VS,Sveta, I+O VS, Sveta, I+O Laboratory Tests 11/17/20 12:44 11/17/20 18:17 11/17/20 23:56 11/18/20 05:03 Vital Signs Date Time Temp Pulse Resp B/P (MAP) Pulse Ox O2 Delivery O2 Flow Rate FiO2 11/18/20 08:00 97.2 88 21 117/58 (77) 99 Room Air 11/12/20 04:00 2.0 I&O- Last 24 Hours up to 6 AM 11/18/20 06:00 Intake Total 3157 ml Output Total 3125 ml Balance 32 ml DEVIN HERR MD Nov 18, 2020 11:07
--- NOTE | 2020-11-18 13:27 | IPN ---
NEPHROLOGY PROGRESS NOTE DATE: 11/18/2020 SUBJECTIVE: Mr. Monson is seen this morning on his bedside. He is feeling about the same. He continues to have some loose stools. He denies any vomiting or abdominal pain. He has no dyspnea or chest pain. He was seen by Dr. Faulkner for possible gastrointestinal (GI) bleed and remains on intravenous Protonix at this point. Dr. Faulkner felt that the patient did not need urgent endoscopy. PHYSICAL EXAMINATION: VITAL SIGNS: Temperature 97.2 degrees Fahrenheit, heart rate 88 per minute, respiratory rate 20 per minute, blood pressure 117/58 mmHg, oxygen saturation 99% on room air. HEAD: Atraumatic. NECK: Supple and jugular venous distention (JVD) difficult to be assessed. HEART SOUNDS: Irregular in rhythm. LUNGS: Diminished breath sounds. ABDOMEN: Obese and nontender. Bowel sounds are present. EXTREMITIES: Without any cyanosis or clubbing. Peripheral edema is significantly improved on all four limbs. NEUROLOGIC: He is at his baseline mentation without a focal deficit. LABORATORY DATA: Today's labs show WBC 7.0, hemoglobin 8.8, hematocrit 27.3. Sodium 144, potassium 3.4, BUN 25, creatinine 1.63. PROBLEMS: 1. Acute kidney injury superimposed on chronic kidney disease. Slight improvement in kidney function is noticed. Patient has good urine output and we will continue to monitor his renal function closely. 2. Hypokalemia. This is related to diuretic use. He is now taking liquids by mouth and we can give him oral potassium supplement. He also received one dose of intravenous potassium this morning. Electrolytes will be checked again tomorrow. 3. Anemia with acute gastrointestinal (GI) bleed. Patient did have blood loss anemia and received transfusion recently. He can be transfused as needed. At this point, there is no emergent need for a transfusion today. 4. Generalized edema and hypervolemia. His volume status has improved significantly and he remains on Bumex 1 mg daily and spironolactone 25 mg twice a day.
[2020-11-19] VITALS (14 sets, daily range): BP systolic 107–143; BP diastolic 54–85
[2020-11-19] MEDS: LEVALBUTEROL 1.25 MG/0.5 ML CONCENTRATE NEB INH SCH ×4 (02:00→20:08)
[2020-11-19] MEDS: PANTOPRAZOLE SODIUM 40 MG in D5W 50 ML IV SCH ×4 (03:40→19:01)
[2020-11-19] MEDS: PIPERACILLIN/TAZOBACTAM SOD 3.375 GM in D5W MINI-BAG PLUS 50 ML IV SCH ×4 (03:40→21:08)
[2020-11-19 05:31] LABS: BASO # 0.1 10^3/uL (0.0-0.2); BASO % 0.8 % (0.0-1.0); EOS # 0.1 10^3/uL (0.0-0.5); EOS % 2.1 % (0.0-3.0); HEMATOCRIT 23.4 % (42.0-52.0); HEMOGLOBIN 7.7 g/dl (13.5-17.5); LYMPH # 1.2 10^3/uL (1.5-5.0); LYMPH % 19.3 % (24.0-44.0); MEAN CORPUSCULAR HEMOGLOBIN 31.3 pg (27.0-33.0); MEAN CORPUSCULAR HGB CONC 32.9 g/dl (32.0-36.5); MEAN CORPUSCULAR VOLUME 95.1 fl (80.0-96.0); MONO # 0.5 10^3/uL (0.0-0.8); MONO % 7.7 % (2.0-8.0); PLATELET COUNT, AUTOMATED 240 10^3/uL (150-450); RED BLOOD COUNT 2.46 10^6/uL (4.30-6.10); WHITE BLOOD COUNT 6.1 10^3/uL (4.0-10.0)
[2020-11-19 05:41] LABS: CALCIUM LEVEL 7.2 MG/DL (8.8-10.2); CREATININE FOR GFR 1.58 MG/DL (0.70-1.30); GLOMERULAR FILTRATION RATE 45.3 (>42); POTASSIUM SERUM 3.1 MEQ/L (3.5-5.1)
[2020-11-19] MEDS: AMIODARONE 200 MG TAB (PACERONE) PO SCH ×3 (06:23→21:09)
[2020-11-19] MEDS: HumaLOG INSULIN (NovoLOG) PER UNIT SC SCH ×4 (06:23→18:00)
[2020-11-19] MEDS ORDERED: KCL 10MEQ/100ML SWI (KRUN) 10 MEQ in IV 1 EA IV ONE (08:30)
[2020-11-19] MEDS: PREPARATION H SUPP (HEMORRHOID) PR SCH ×2 (09:00→21:09)
[2020-11-19] MEDS: BUMETANIDE 1 MG TAB PO SCH (09:18)
[2020-11-19] MEDS: POTASSIUM CHLORIDE 10 MEQ SR TABLET PO SCH ×2 (09:18→21:09)
--- NOTE | 2020-11-19 10:10 | IPNPDOC ---
Text Note Date of Service The patient was seen on 11/19/20. NOTE Subjective: Patient is a 80 year old male with a PMHx of AV replacement (Bioprosthetic), Chronic A. fib s/p ablation (01/2019), CAD s/p stent (2016), Diastolic CHF, DM2, CKD3, recent diagnosis of rectal adenocarcinoma (planned for elective colectomy this month), who presented to the ER with rectal bleeding. Patient was admitted to the hospitalist service for further evaluation and treatment. General surgery has been called on consultation. Patient was seen and examined at the bedside. Patient denies any chest pain, shortness breath, palpitations, nausea, vomiting, abdominal pain or constipation. Does report some loose bowel movements. Bowel movements have been described as liquid and green. Objective: Vitals (See below) General: Patient is sitting up in bed tilted toward his right reports he feels comfortable. He is not in any acute distress, is awake, alert, oriented 3 HEENT: NC, AT CVS: +S1S2 Lungs: Diminished lung sounds bilaterally, however, no auscultated rhonchi, crackles or wheezing Abdomen: Soft, nondistended, nontender but obese Extremities: There still appears to be 1+ pitting edema bilaterally Imaging: XR abdomen 10/30: Bowel obstruction XR abdomen 11/09: 1. Postsurgical changes to the abdomen and pelvis. 2. Bowel gas pattern is relatively nonspecific as described above. Findings likely represent a mild postsurgical ileus and less likely obstruction. CXR 11/14: Findings suggest minimally improved left lower lobe opacity. Vascular US 11/15: No evidence for deep venous thrombosis right upper extremity. CT abdomen / pelvis 11/16: 1. There is significant distension to the stomach and duodenum with stranding along the proximal duodenum including few adjacent lymph nodes. An underlying duodenitis or element of occult obstruction must be considered. 2. Further relatively nonacute findings as described above. 3. Mild bibasilar atelectasis and small pleural effusions. Abdomen XR 11/17: Limited examination with air-filled loops of small and large bowel raising the possibility of ileus. CXR 11/17: Questionable trace left basilar atelectasis and small pleural reaction. Assessment and plan: Left lower lobe pneumonia - Denies any significant SOB, cough or palpitations - Patient remains hemodynamically stable without any fevers documented - Imaging noted above - Blood cultures 11/12: No growth at 5 days - c/w Zosyn (Day #5) A. Fib with RVR - s/p Hypotension - c/w Amiodarone - Full anticoagulation with Eliquis on hold (re: Anemia) Decompensated Diastolic CHF - Physical with evidence of fluid overload - c/w Diuresis with Bumetanide / Spironolactone Anemia with iron deficiency - Reported green / dark stools - EGD in mid October revealed gastritis / duodenitis - s/p 4 units PRBC transfusion - Will transfuse additional 2 units or PRBC today - c/w Protonix drip Colorectal cancer - s/p Sigmoid resection for colon cancer on 11/[address] Shay - Will need follow up with Oncology Acute on chronic renal insufficiency s/p Metabolic acidosis - likely 2/2 Renal failure Hypokalemia - Will again supplement via IV and PO routes DM2 - c/w ISS Obesity - BMI of 38.8 - Complicating medical care HTN - BP well controlled - Currently only on diuretics CAD s/p stent - Plavix on hold DLP - Will resume Simvastatin AV stenosis s/p AV replacement with bioprosthetic DVT prophylaxis - c/w TEDs/Sequentials Disposition: - Will likely need rehabilitation VS,Sveta, I+O VS, Sveta, I+O Laboratory Tests 11/19/20 05:00 Vital Signs Date Time Temp Pulse Resp B/P (MAP) Pulse Ox O2 Delivery O2 Flow Rate FiO2 11/19/20 08:00 87 97 11/19/20 08:00 96.6 20 120/57 (78) Room Air I&O- Last 24 Hours up to 6 AM 11/19/20 06:00 Intake Total 920 ml Output Total 1325 ml Balance -405 ml DEVIN HERR MD Nov 19, 2020 10:10
--- NOTE | 2020-11-19 12:04 | IPN ---
NEPHROLOGY PROGRESS NOTE DATE: 11/19/2020 SUBJECTIVE: Mr. Monson is seen this morning on his bedside. He is feeling about the same. He continues to have some loose stools. He denies any fever, chills, dyspnea or chest pain. He is mostly in the bed in the same position. PHYSICAL EXAMINATION: VITAL SIGNS: Temperature 96.6 degrees Fahrenheit, heart rate 87 per minute, respiratory rate 20 per minute, blood pressure 120/57 mmHg, oxygen saturation 98% on room air. HEAD: Atraumatic. NECK: Supple and jugular venous distention (JVD) difficult to be assessed. HEART SOUNDS: Regular. LUNGS: Diminished breath sounds. ABDOMEN: Obese and soft. Bowel sounds are present. EXTREMITIES: Without any cyanosis or clubbing. He still has some dependent edema on his right upper extremity and bilateral lower extremities. NEUROLOGIC: He is at his baseline mentation. LABORATORY DATA: Today's labs show WBC 6.1, hemoglobin 7.7, hematocrit 23.4. Sodium 142, potassium 3.1, CO2 23, BUN 28, creatinine 1.58, calcium 7.2. PROBLEMS: 1. Acute kidney injury. Kidney function is gradually improving. He has no uremic symptoms and good urine output. At present, his kidney function will be monitored daily. 2. Hypokalemia. This is related to diuretic use and loose stools. He is receiving oral supplement and I am going to give him one more dose of intravenous potassium chloride 10 mEq. I am stopping his diuretics for now. 3. Generalized edema and anasarca. Most likely related to low serum albumin and acute kidney injury. Diuretic is currently being stopped, as it has helped to improve his peripheral edema and now he has persistent hypokalemia. Once his hypokalemia is corrected, then I will consider to resume diuretics. 4. Anemia with ongoing blood loss. Patient is noticed to have Hemoccult positive stools and has received transfusions previously. He is going to receive another 2 units of blood today. He has been evaluated by surgery; however, a decision for repeat endoscopy has not been made.
[2020-11-19] MEDS: CEPACOL LOZENGE PO PRN (18:50)
[2020-11-19 20:30] LABS: BASO % 0.4 % (0.0-1.0); EOS # 0.1 10^3/uL (0.0-0.5); EOS % 1.5 % (0.0-3.0); HEMATOCRIT 27.1 % (42.0-52.0); HEMOGLOBIN 8.9 g/dl (13.5-17.5); LYMPH # 1.2 10^3/uL (1.5-5.0); LYMPH % 16.2 % (24.0-44.0); MEAN CORPUSCULAR HEMOGLOBIN 30.4 pg (27.0-33.0); MEAN CORPUSCULAR HGB CONC 32.8 g/dl (32.0-36.5); MEAN CORPUSCULAR VOLUME 92.5 fl (80.0-96.0); MONO # 0.5 10^3/uL (0.0-0.8); MONO % 7.2 % (2.0-8.0); NEUTROPHILS # 5.5 10^3/uL (1.5-8.5); NEUTROPHILS % 72.6 % (36.0-66.0); PLATELET COUNT, AUTOMATED 235 10^3/uL (150-450); RED BLOOD COUNT 2.93 10^6/uL (4.30-6.10); WHITE BLOOD COUNT 7.5 10^3/uL (4.0-10.0)
[2020-11-19] MEDS ORDERED: SIMVASTATIN 40 MG TAB PO SCH (21:00)
[2020-11-20] VITALS (30 sets, daily range): BP systolic 74–135; BP diastolic 40–84
[2020-11-20] MEDS: PANTOPRAZOLE SODIUM 40 MG in D5W 50 ML IV SCH ×5 (00:07→20:52)
[2020-11-20] MEDS: LEVALBUTEROL 1.25 MG/0.5 ML CONCENTRATE NEB INH SCH ×4 (02:00→19:43)
--- NOTE | 2020-11-20 02:33 | IPNPDOC ---
Text Note Date of Service The patient was seen on 11/20/20. NOTE time of service 222am I was informed by the patient's RN Heaven that the patient's BP was 88/52 and that he was back in RVR At the time of my evaluation the patient was a bit sleepy but arousable and conversant. He denied feeling dizzy, having chest pain or dyspnea. PE HR 110s to 130s / BP as above / T 99.9 / RR 36 #SIRS (reactive) vs Sepsis He has fever, tachycardia and hypotension He has been on Zosyn for several days now Plan: place pt in trendelenberg position / 1 dose of albumin/ f/u CBC, BMP, lactic and blood cx now / I will hold off UA and chest xray bc he doesn't have any localizing symptoms / will ask the day time team to consider ID consult VS,Sveta, I+O VS, Sveta, I+O Laboratory Tests 11/19/20 05:00 11/19/20 20:17 Vital Signs Date Time Temp Pulse Resp B/P (MAP) Pulse Ox O2 Delivery O2 Flow Rate FiO2 11/20/20 02:21 98.9 122 29 88/52 96 Room Air I&O- Last 24 Hours up to 6 AM 11/20/20 06:00 Intake Total 1983 ml Output Total 1800 ml Balance 183 ml JC PEOPLES MD Nov 20, 2020 02:33
[2020-11-20 03:07] LABS: BASO % 0.2 % (0.0-1.0); EOS % 0.1 % (0.0-3.0); HEMATOCRIT 24.6 % (42.0-52.0); HEMOGLOBIN 8.2 g/dl (13.5-17.5); LYMPH # 0.7 10^3/uL (1.5-5.0); LYMPH % 4.2 % (24.0-44.0); MEAN CORPUSCULAR HEMOGLOBIN 30.7 pg (27.0-33.0); MEAN CORPUSCULAR HGB CONC 33.3 g/dl (32.0-36.5); MEAN CORPUSCULAR VOLUME 92.1 fl (80.0-96.0); MONO # 0.8 10^3/uL (0.0-0.8); MONO % 4.6 % (2.0-8.0); NEUTROPHILS % 89.9 % (36.0-66.0); PLATELET COUNT, AUTOMATED 233 10^3/uL (150-450); RED BLOOD COUNT 2.67 10^6/uL (4.30-6.10); WHITE BLOOD COUNT 17.8 10^3/uL (4.0-10.0)
[2020-11-20 03:42] LABS: CALCIUM LEVEL 7.2 MG/DL (8.8-10.2); CREATININE FOR GFR 1.85 MG/DL (0.70-1.30); GLOMERULAR FILTRATION RATE 37.7 (>42); POTASSIUM SERUM 3.8 MEQ/L (3.5-5.1)
[2020-11-20] MEDS: PIPERACILLIN/TAZOBACTAM SOD 3.375 GM in D5W MINI-BAG PLUS 50 ML IV SCH ×4 (05:19→22:59)
[2020-11-20] MEDS: AMIODARONE 200 MG TAB (PACERONE) PO SCH ×3 (05:20→23:00)
[2020-11-20] MEDS: HumaLOG INSULIN (NovoLOG) PER UNIT SC SCH ×4 (05:25→18:42)
[2020-11-20 07:50] LABS: HEMATOCRIT 22.9 % (42.0-52.0); HEMOGLOBIN 7.5 g/dl (13.5-17.5); MEAN CORPUSCULAR HEMOGLOBIN 30.5 pg (27.0-33.0); MEAN CORPUSCULAR HGB CONC 32.8 g/dl (32.0-36.5); MEAN CORPUSCULAR VOLUME 93.1 fl (80.0-96.0); PLATELET COUNT, AUTOMATED 218 10^3/uL (150-450); RED BLOOD COUNT 2.46 10^6/uL (4.30-6.10); WHITE BLOOD COUNT 18.1 10^3/uL (4.0-10.0)
[2020-11-20 08:14] LABS: ALBUMIN 1.8 GM/DL (3.2-5.2); BILIRUBIN,TOTAL 0.5 MG/DL (0.2-1.0); CALCIUM LEVEL 6.9 MG/DL (8.8-10.2); CREATININE FOR GFR 1.92 MG/DL (0.70-1.30); GLOMERULAR FILTRATION RATE 36.1 (>42); MAGNESIUM LEVEL 1.9 MG/DL (1.8-2.4)
[2020-11-20 08:35] LABS: ATYPICAL LYMPH 2 % (0-5); LYMPHOCYTES 8 % (16-44); METAMYELOCYTES 1 % (0-0); MONOCYTES 2 % (0-5); NEUTROPHILS 80 % (28-66)
[2020-11-20 08:36] LABS: PLATELET ESTIMATE NORMAL (NORMAL)
[2020-11-20 08:37] LABS: ANISOCYTOSIS 1+
[2020-11-20] MEDS: PREPARATION H SUPP (HEMORRHOID) PR SCH ×2 (09:00→21:00)
--- NOTE | 2020-11-20 10:09 | IPNPDOC ---
Text Note Date of Service The patient was seen on 11/20/20. NOTE Subjective: Patient is a 80 year old male with a PMHx of AV replacement (Bioprosthetic), Chronic A. fib s/p ablation (01/2019), CAD s/p stent (2016), Diastolic CHF, DM2, CKD3, recent diagnosis of rectal adenocarcinoma (planned for elective colectomy this month), who presented to the ER with rectal bleeding. Patient was admitted to the hospitalist service for further evaluation and treatment. General surgery has been called on consultation. Patient was seen and examined at the bedside. Currently patient denies any chest pain, shortness breath, palpitations, nausea, vomiting, abdominal pain. Yesterday evening, patient had a dark bowel movement. Has not had any further bowel movements, however, has been passing green stool. Cedeno catheter is in p lace with adequate urine output. Objective: Vitals (See below) General: Patient is laying in bed, appears to be comfortable without any acute distress, is oriented to person this time HEENT: Normocephalic and atraumatic CVS: +S1S2 Lungs: Air entry appears to be diminished bilaterally. No evidence of wheezing, crackles or rhonchi Abdomen: Abdomen is soft without any distention. No tenderness, obese Extremities: Lower extremities reveal 1+ pitting edema Imaging: XR abdomen 10/30: Bowel obstruction XR abdomen 11/09: 1. Postsurgical changes to the abdomen and pelvis. 2. Bowel gas pattern is relatively nonspecific as described above. Findings likely represent a mild postsurgical ileus and less likely obstruction. CXR 11/14: Findings suggest minimally improved left lower lobe opacity. Vascular US 11/15: No evidence for deep venous thrombosis right upper extremity. CT abdomen / pelvis 11/16: 1. There is significant distension to the stomach and duodenum with stranding along the proximal duodenum including few adjacent lymph nodes. An underlying duodenitis or element of occult obstruction must be considered. 2. Further relatively nonacute findings as described above. 3. Mild bibasilar atelectasis and small pleural effusions. Abdomen XR 11/17: Limited examination with air-filled loops of small and large bowel raising the possibility of ileus. CXR 11/17: Questionable trace left basilar atelectasis and small pleural reaction. Assessment and plan: Left lower lobe pneumonia - Denies any significant SOB, cough or palpitations - Patient remains hemodynamically stable without any fevers documented - Leukocytosis increased this morning - Imaging noted above - MRSA 11/12: Negative - Blood cultures 11/12: No growth at 5 days - Blood cultures 11/20: Pending - c/w Zosyn (Day #6) A. Fib with RVR - s/p Hypotension - c/w Amiodarone - Full anticoagulation with Eliquis on hold (re: Anemia / Acute blood loss) Decompensated Diastolic CHF - Physical with evidence of fluid overload - c/w Spironolactone - Bumetanide on hold - Nephrology on consult; appreciate their input Anemia with iron deficiency - Reported green / dark stools; large dark bowel movement yesterday 11/19 PM - EGD in mid October revealed gastritis / duodenitis - s/p 4 units PRBC transfusion - s/p 2 units PRBC yesterday; will transfuse additional 2 units PRBC today - c/w Protonix drip - General surgery on consultation; plan for repeat EGD today Colorectal cancer - s/p Sigmoid resection for colon cancer on 11/[address] 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
[2020-11-20] MEDS ORDERED: fentaNYL 100 MCG/2 ML INJECTION (J3010) As Ordered ONE (11:48)
[2020-11-20] MEDS ORDERED: propofoL 200 MG/20 ML VIAL As Ordered ONE (11:49)
--- NOTE | 2020-11-20 12:27 | IPNPDOC ---
Text Note Date of Service The patient was seen on 11/20/20. NOTE General surgery. Dr. Faulkner The patient is a 80 male with sigmoid colon adenocarcinoma status post low anterior rectosigmoid resection 11/05/[address] Shay. 11/17/2020 the patient was noted to have some evidence for upper GI bleeding with a small amount of hematemesis and dark liquid stools. The patient received 4 units PRBCs and his anticoagulation was held, Protonix drip started. Yesterday morning the patient was noted to have hemoglobin of 7.7 and the patient received another 2 units PRBCs 11/19. Nursing states yesterday afternoon and evening the patient was noted to have dark-colored stools. Later in the evening the patient had dark green liquid stools. At approximately 1:45 AM the patient's blood pressure was noted to be 74/40, heart rate 118. The hospitalist was called, the patient received albumin. At 2:50 AM hemoglobin was 8.2, this was decreased to 7.5 at 7:33 AM This morning, the patient denies abdominal pain, nausea, vomiting. A total of 4 bowel movements recorded yesterday. This morning vital signs are stable with temperature 98.0, heart rate 98, respiratory rate 16, blood pressure 111/56, 98% room air. The patient is currently receiving transfusion PRBCs with 2 additional units ordered. Hemoglobin this morning 7.5. Sitting up in bed, appears in no acute distress MMM Lungs clear to auscultation S1-S2 irregular Abdomen soft, nontender, nondistended, surgical sites are clean and dry. Assessment/plan Colorectal cancer s/p low anterior rectosigmoid resection as per Dr. Shay 11/05/2020 Outpatient follow up with Oncology. GI bleeding/anemia Reported dark stools last evening followed by dark green stools. EGD 10/21/20 indicated gastritis/duodenitis. Hemoglobin this morning 7.5 Transfusing additional 2 units PRBCs this morning. Anticoagulation on hold. Protonix drip Reviewed and discussed with Dr. Faulkner this morning, plan is for EGD this afternoon. Continue to monitor. VS,Fishbone, I+O VS, Fishbone, I+O Laboratory Tests 11/19/20 20:17 11/20/20 02:50 11/20/20 07:33 Vital Signs Date Time Temp Pulse Resp B/P (MAP) Pulse Ox O2 Delivery O2 Flow Rate FiO2 11/20/20 11:40 98.5 84 24 124/63 100 Room Air I&O- Last 24 Hours up to 6 AM 11/20/20 06:00 Intake Total 2333.0 ml Output Total 3200 ml Balance -867.0 ml Attending Note Attending Note Agree with note by TR. Plan for EGD for evidence of continued bleeding. Erica Cadet Nov 20, 2020 12:27 Odilon Faulkner Nov 25, 2020 22:02
[2020-11-20] MEDS ORDERED: ePHEDrine SULFATE 25 MG/5 ML(5MG/ML) SYRINGE As Ordered ONE (13:28)
[2020-11-20] MEDS ORDERED: PHENYLephrine 500MCG 5ML (100MCG/ML) SYRINGE As Ordered ONE (13:50)
[2020-11-20] MEDS ORDERED: ONDANSETRON 4MG/2ML VIAL IV PRN (14:40)
--- NOTE | 2020-11-20 18:24 | IPN ---
PROGRESS NOTE DATE: 11/20/2020 SUBJECTIVE: Mr. Monson is seen this morning on his bedside. He is still almost bedridden and currently receiving blood transfusion. He continues to have loose stools and dropped his hematocrit again this morning. He denies any dyspnea or chest pain. PHYSICAL EXAMINATION: VITALS: Temperature 97 degrees Fahrenheit, heart rate 84 per minute, respiratory rate 22 per minute, blood pressure 124/60 mmHg and oxygen saturation 96% on room air, HEENT: Head is atraumatic. Neck is supple and JVD difficult to be assessed. LUNGS: Diminished breath sounds at dependent parts. HEART: Sounds are irregular. ABDOMEN: Obese. Bowel sounds are present. EXTREMITIES: Without any cyanosis or clubbing. His peripheral edema has improved significantly. LABORATORY STUDIES: WBC 18.1, hemoglobin 7.5, hematocrit 22.9. Sodium 140, potassium 4.0, CO2 22, BUN 42 and creatinine 1.92. Glucose 228 and calcium 6.9. PROBLEMS: 1. Acute kidney injury superimposed on chronic kidney disease: Kidney function seems slightly worse today. His diuretics have already been stopped. He is receiving blood transfusion at present and he was still in slight negative fluid balance yesterday. At this point, we will continue to monitor his renal function and anticipate improvement as he is not on diuretic anymore. 2. Blood loss anemia: Patient continues to require blood transfusion and is receiving another transfusion today. He probably has ongoing GI bleed. Patient has been seen by surgery and at this point he is being managed medically. 3. Peripheral edema and hypervolemia: His volume status has improved and diuretic has been stopped.
[2020-11-20] MEDS: SUCRALFATE SUSP 1GM/10ML UD PO SCH (18:43)
--- NOTE | 2020-11-20 21:50 | ROOR ---
Patient Name: Hugo Monson Procedure Date: 11/20/2020 9:46 AM Date of : 1940 Age: 80 Room: Main OR Gender: Male Note Status: Finalized Procedure: Upper GI endoscopy Indications: Melena, Active gastrointestinal bleeding Providers: Odilon Faulkner MD Referring MD: 2. Inpatient 2. Inpatient Requesting Provider: Medicines: Monitored Anesthesia Care, General Anesthesia Complications: No immediate complications. Procedure: Pre-Anesthesia Assessment: - Prior to the procedure, a History and Physical was performed, and patient medications and allergies were reviewed. The patient is competent. The risks and benefits of the procedure and the sedation options and risks were discussed with the patient. All questions were answered and informed consent was obtained. Patient identification and proposed procedure were verified by the physician, the nurse and the operation supervisor in the procedure room. Mental Status Examination: alert and oriented. Prophylactic Antibiotics: The patient does not require prophylactic antibiotics. Prior Anticoagulants: The patient has taken no previous anticoagulant or antiplatelet agents. ASA Grade Assessment: III - A patient with severe systemic disease. After reviewing the risks and benefits, the patient was deemed in satisfactory condition to undergo the procedure. The anesthesia plan was to use monitored anesthesia care (MAC). Immediately prior to administration of medications, the patient was re-assessed for adequacy to receive sedatives. The heart rate, respiratory rate, oxygen saturations, blood pressure, adequacy of pulmonary ventilation, and response to care were monitored throughout the procedure. The physical status of the patient was re-assessed after the procedure. The Endoscope was introduced through the mouth, and advanced to the second part of duodenum. The upper GI endoscopy was somewhat difficult due to excessive bleeding. Findings: The examined esophagus was normal. Clear fluid was found in the gastric fundus and in the gastric body. Red blood was found in the second portion of the duodenum. Lavage of the area was performed using a moderate amount of normal saline, resulting in clearance with adequate visualization. One non-bleeding cratered duodenal ulcer with no stigmata of bleeding was found in the first portion of the duodenum. The lesion was 18 mm in largest dimension. Two non-bleeding cratered duodenal ulcers with adherent clot were found in the second portion of the duodenum. The largest lesion was 25 mm in largest dimension. Clot removal with forceps was attempted. This was successful and revealed an oozing lesion with no stigmata of bleeding. Theere was a thin spray of pulsatile blood coming from a nearly normal appearing area of the mucosa on the lateral aspect of the 2nd portion of the duodenum. Coagulation for hemostasis using heater probe was successful. To prevent bleeding post-intervention, two hemostatic clips were successfully placed (MR conditional). There was no bleeding at the end of the procedure. Impression: - Normal esophagus. - Clear gastric fluid. - Blood in the second portion of the duodenum. - Non-bleeding duodenal ulcer with no stigmata of bleeding. - Non-bleeding duodenal ulcers with adherent clot. - Bleeding site in duodenum. Treated with a heater probe. Clips (MR conditional) were placed. - No specimens collected. Recommendation: - Return patient to hospital young for ongoing care. - Clear liquid diet. - Continue present medications. - Use sucralfate suspension 1 gram PO QID. Procedure Code(s): --- Professional --- 15881, Esophagogastroduodenoscopy, flexible, transoral; with control of bleeding, any method Diagnosis Code(s): --- Professional --- K92.2, Gastrointestinal hemorrhage, unspecified K26.9, Duodenal ulcer, unspecified as acute or chronic, without hemorrhage or perforation K26.4, Chronic or unspecified duodenal ulcer with hemorrhage K92.1, Melena (includes Hematochezia) CPT copyright 2019 [employer]. All rights reserved. The codes documented in this report are preliminary and upon bat boy/girl review may be revised to meet current compliance requirements. Attending Participation: I personally performed the entire procedure. Odilon Faulkner MD Odilon Faulkner MD 11/20/2020 9:50:34 PM Electronically signed by Odilon Faulkner MD Number of Addenda: 0 Note Initiated On: 11/20/2020 9:46 AM Estimated Blood Loss: Estimated blood loss: 50 mL.
[2020-11-20 22:38] LABS: BASO % 0.4 % (0.0-1.0); EOS # 0.1 10^3/uL (0.0-0.5); EOS % 0.8 % (0.0-3.0); HEMATOCRIT 30.6 % (42.0-52.0); LYMPH # 1.3 10^3/uL (1.5-5.0); LYMPH % 12.6 % (24.0-44.0); MEAN CORPUSCULAR HEMOGLOBIN 30.5 pg (27.0-33.0); MEAN CORPUSCULAR HGB CONC 33.7 g/dl (32.0-36.5); MEAN CORPUSCULAR VOLUME 90.5 fl (80.0-96.0); MONO # 0.7 10^3/uL (0.0-0.8); MONO % 6.2 % (2.0-8.0); NEUTROPHILS # 8.3 10^3/uL (1.5-8.5); NEUTROPHILS % 78.7 % (36.0-66.0); PLATELET COUNT, AUTOMATED 181 10^3/uL (150-450); RED BLOOD COUNT 3.38 10^6/uL (4.30-6.10); WHITE BLOOD COUNT 10.6 10^3/uL (4.0-10.0)
[2020-11-20 22:41] LABS: HEMOGLOBIN 10.3 g/dl (13.5-17.5)
[2020-11-21] VITALS (16 sets, daily range): BP systolic 98–157; BP diastolic 53–67
[2020-11-21] MEDS: SUCRALFATE SUSP 1GM/10ML UD PO SCH ×4 (00:36→18:27)
[2020-11-21] MEDS: LEVALBUTEROL 1.25 MG/0.5 ML CONCENTRATE NEB INH SCH ×4 (01:41→20:05)
[2020-11-21] MEDS: PANTOPRAZOLE SODIUM 40 MG in D5W 50 ML IV SCH ×5 (02:45→22:16)
[2020-11-21] MEDS: PIPERACILLIN/TAZOBACTAM SOD 3.375 GM in D5W MINI-BAG PLUS 50 ML IV SCH (04:50)
[2020-11-21] MEDS: HumaLOG INSULIN (NovoLOG) PER UNIT SC SCH ×4 (06:00→18:00)
[2020-11-21] MEDS: AMIODARONE 200 MG TAB (PACERONE) PO SCH ×3 (07:13→21:28)
[2020-11-21] MEDS: PREPARATION H SUPP (HEMORRHOID) PR SCH ×2 (08:10→20:33)
[2020-11-21 08:12] LABS: BASO % 0.5 % (0.0-1.0); EOS # 0.1 10^3/uL (0.0-0.5); EOS % 1.4 % (0.0-3.0); HEMATOCRIT 30.3 % (42.0-52.0); LYMPH % 12.2 % (24.0-44.0); MEAN CORPUSCULAR HEMOGLOBIN 29.9 pg (27.0-33.0); MEAN CORPUSCULAR VOLUME 90.7 fl (80.0-96.0); MONO # 0.5 10^3/uL (0.0-0.8); MONO % 6.2 % (2.0-8.0); NEUTROPHILS # 6.7 10^3/uL (1.5-8.5); NEUTROPHILS % 78.3 % (36.0-66.0); PLATELET COUNT, AUTOMATED 186 10^3/uL (150-450); RED BLOOD COUNT 3.34 10^6/uL (4.30-6.10); WHITE BLOOD COUNT 8.5 10^3/uL (4.0-10.0)
[2020-11-21 08:38] LABS: CALCIUM LEVEL 7.4 MG/DL (8.8-10.2); CREATININE FOR GFR 1.68 MG/DL (0.70-1.30); GLOMERULAR FILTRATION RATE 42.2 (>42); POTASSIUM SERUM 3.6 MEQ/L (3.5-5.1)
--- NOTE | 2020-11-21 09:39 | IPNPDOC ---
Text Note Date of Service The patient was seen on 11/21/20. NOTE Subjective: Patient is a 80 year old male with a PMHx of AV replacement (Bioprosthetic), Chronic A. fib s/p ablation (01/2019), CAD s/p stent (2016), Diastolic CHF, DM2, CKD3, recent diagnosis of rectal adenocarcinoma (planned for elective colectomy this month), who presented to the ER with rectal bleeding. Patient was admitted to the hospitalist service for further evaluation and treatment. General surgery has been called on consultation. Patient was seen and examined at the bedside. Currently patient reports that he is not experiencing any chest pain, shortness breath, palpitations, has not spent any nausea, vomiting or abdominal pain. Overnight patient continued to experience some dark bowel movements. Objective: Vitals (See below) General: Patient remains lying in bed, is drowsy but awakes to questions. Oriented 3 HEENT: AT, NC CVS: +S1S2 Lungs: There appears to be fair air entry bilaterally without evidence of wheezing, crackles, rhonchi Abdomen: Nondistended, nontender, soft Extremities: Lower extremities reveal 1+ pitting edema Imaging: XR abdomen 10/30: Bowel obstruction XR abdomen 11/09: 1. Postsurgical changes to the abdomen and pelvis. 2. Bowel gas pattern is relatively nonspecific as described above. Findings likely represent a mild postsurgical ileus and less likely obstruction. CXR 11/14: Findings suggest minimally improved left lower lobe opacity. Vascular US 11/15: No evidence for deep venous thrombosis right upper extremity. CT abdomen / pelvis 11/16: 1. There is significant distension to the stomach and duodenum with stranding along the proximal duodenum including few adjacent lymph nodes. An underlying duodenitis or element of occult obstruction must be considered. 2. Further relatively nonacute findings as described above. 3. Mild bibasilar atelectasis and small pleural effusions. Abdomen XR 11/17: Limited examination with air-filled loops of small and large bowel raising the possibility of ileus. CXR 11/17: Questionable trace left basilar atelectasis and small pleural reaction. Assessment and plan: Left lower lobe pneumonia - Denies any significant SOB, cough or palpitations - Patient remains hemodynamically stable without any fevers documented - Leukocytosis resolved - Imaging noted above - MRSA 11/12: Negative - Blood cultures 11/12: No growth at 5 days - Blood cultures 11/20: No growth at 24 hours - Will DC Zosyn (Day #7) A. Fib with RVR - s/p Hypotension - c/w Amiodarone - Full anticoagulation with Eliquis on hold (re: Anemia / Acute blood loss) Decompensated Diastolic CHF - Physical reveals 1+ pitting edema of lower extremities - c/w Spironolactone - Bumetanide on hold; will be evaluated for resumption today - Nephrology on consult; appreciate their input Anemia with iron deficiency - Patient continued to express dark bowel movements overnight - Hemoglobin has remained stable since transfusion yesterday - Will continue to trend H&H - EGD 11/20: Reported to have evidence of 2 ulcerations within the duodenum and a bleeding vessel that was cauterized and clipped - s/p 10 units PRBC transfusion - c/w Protonix drip and Carafate - General surgery on consultation; appreciate their input Colorectal cancer - s/p Sigmoid resection for colon cancer on 11/[address] 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
--- NOTE | 2020-11-21 11:41 | IPN ---
PROGRESS NOTE DATE: 11/21/2020 SUBJECTIVE: Mr. Monson is seen this morning on his bedside. He is resting comfortably at present time. He was transfused yesterday with improvement in his anemia. His oral intake is still poor. OBJECTIVE: VITAL SIGNS: Temperature is 97.6 degrees Fahrenheit, heart rate is 80 per minute and respiratory rate is 20 per minute. Blood pressure 157/67 mmHg and oxygen saturation 98% on room air. INTAKE AND OUTPUT: Intake and output records from yesterday show a positive fluid balance of about 1900 ml. HEENT: His head is atraumatic. NECK: Supple. JVD is not abnormally elevated. HEART: Heart sounds are regular. LUNGS: Slightly diminished breath sounds at bases. ABDOMEN: Obese and nontender. Bowel sounds are normal. EXTREMITIES: Without any cyanosis or clubbing. Peripheral edema has improved significantly although not completely resolved. LABORATORY DATA: Today's labs showed a sodium of 146, potassium 3.6, CO2 23, BUN 33, and creatinine 1.68. Calcium level is 7.4. PROBLEMS: 1. Acute kidney injury superimposed on chronic kidney disease. His kidney function is improving. At present, he is off diuretics. When he was receiving diuretic, his creatinine was increasing which is suggestive of intravascular volume depletion. At present, I will continue to hold off on diuretics. His peripheral edema is most likely related to low serum albumin. 2. Anemia, patient has ongoing blood loss and has required multiple transfusions. Now, his anemia has improved since transfusion yesterday. 3. Hypernatremia. He has mild hypernatremia which is likely to resolve. He has not received a diuretic for the last 48 hours. This is probably related to transfusion yesterday. We will watch and recheck his electrolytes tomorrow. 4. Hypokalemia, potassium level has improved and he is currently off diuretics. He is not receiving any potassium supplement. 5. GI bleed. Patient continues to have blood loss. At this point, no endoscopy is planned. He remains on Carafate and Protonix. 6. Atrial fibrillation. Patient remains on amiodarone and his heart rate is well-controlled.
[2020-11-21] MEDS ORDERED: LIDOCAINE 1% MDV 20ML VIAL As Ordered ONE (11:46)
[2020-11-21 12:59] LABS: HEMATOCRIT 29.3 % (42.0-52.0); HEMOGLOBIN 9.9 g/dl (13.5-17.5)
--- NOTE | 2020-11-21 14:57 | REP ---
INDICATION: Poor access. COMPARISON: None. TECHNIQUE: The procedure was performed under the direct supervision of Dr. Johnson. The risks and benefits of the procedure were explained to the patient and informed consent was obtained. The right basilic vein was localized using ultrasound guidance. The skin was prepped and draped in a sterile fashion. 1 mL of 1% lidocaine was used as a local anesthetic. Using ultrasound guidance the basilic vein was cannulated and a 0.018 guidewire was inserted and advanced to the SVC using fluoroscopic guidance, and last image hold technology. The needle was removed and a 5 Gabonese dilator and peel-away sheath was inserted over the guide wire. A 5 Gabonese dual lumen catheter was cut to length of 45 cm. The dilator was removed and the catheter was inserted over the guide wire with the tip ending in the SVC. The peel-away sheath was removed and the catheter was flushed with heparinized saline as per Hospital protocol. The catheter was affixed to the skin and a sterile dressing was applied. Estimated blood loss: Less than 1 mL The patient tolerated the procedure well and there were no immediate complications. 0.1 minutes of fluoro time was utilized for this procedure. FINDINGS: None IMPRESSION: PICC line insertion right basilic vein with the tip ending in the SVC. <Electronically signed by Aditya Freeman > 11/21/20 [id number] <Electronically signed by Ryan Johnson > 11/21/20 1517
[2020-11-21] MEDS: SODIUM CHLORIDE 0.9% INJ 10 ML SYR IV SCH (18:28)
[2020-11-21 19:43] LABS: HEMATOCRIT 26.2 % (42.0-52.0); HEMOGLOBIN 8.8 g/dl (13.5-17.5)
--- NOTE | 2020-11-21 20:38 | REPVR ---
PROCEDURE INFORMATION: Exam: CT Abdomen And Pelvis Without Contrast Exam date and time: 11/21/2020 7:04 PM Age: 80 years old Clinical indication: Bloating; Additional info: Abdominal distention TECHNIQUE: Imaging protocol: Computed tomography of the abdomen and pelvis without contrast. Radiation optimization: All CT scans at this facility use at least one of these dose optimization techniques: automated exposure control; mA and/or kV adjustment per patient size (includes targeted exams where dose is matched to clinical indication); or iterative reconstruction. COMPARISON: CT ABD PELVIS W/O CONTRAST 11/16/2020 3:48 PM FINDINGS: Tubes, catheters and devices: The tip of a PICC line is seen terminating in the junction of the superior vena cava and right atrium. The PICC line was not fully imaged. Lungs: There is bibasilar atelectasis. The lungs were not fully imaged. Pleural spaces: There are trace bilateral pleural effusions. Heart: Postoperative changes are noted involving the aortic valve. No cardiomegaly or pericardial effusion is noted. Coronary artery calcifications are present. There is lipomatous hypertrophy of the interatrial septum. Diaphragm: Intact. Liver: Unremarkable. No liver lesion is identified. The contour of the liver is smooth. No hepatomegaly is noted. Gallbladder and bile ducts: No calcified gallstones are noted. No gallbladder wall thickening, pericholecystic fluid, or pericholecystic inflammatory changes are identified. No dilation of the bile ducts is noted. No calcified stones are seen in the common bile duct. Pancreas: Unremarkable. No dilation of the main pancreatic duct is noted. Spleen: Unremarkable. No splenomegaly is noted. Adrenal glands: Normal. No adrenal mass is noted. Kidneys and ureters: There is a 10 mm benign-appearing exophytic cyst arising from the posterior cortex of the superior 3rd of the right kidney and a 26 mm benign, minimally complicated cyst containing a few hairline thin calcified septa arising from the lower pole of the left kidney, which are stable compared to the prior CT abdomen and pelvis on 11/16/2020 and for which imaging follow-up is not necessary. No stones are noted in the kidneys or ureters. There is no hydronephrosis or hydroureter. Stomach and bowel: There are 2 linear metallic density objects within the lumen of the 2nd portion of the duodenum (image 79 of the axial series 201) and a linear metallic density object in the lumen of the distal ascending colon (image 47 of the coronal series 202), which measure approximately 18 mm each. An anastomotic suture line is noted at the rectosigmoid junction and there is mesenteric fat stranding around the anastomosis that is similar in appearance compared to the prior CT abdomen and pelvis on 11/16/2020 and may be inflammatory or postoperative in nature. There is liquid feces in the colon, which will lead to diarrhea. There is no evidence for a bowel obstruction, diverticulosis, diverticulitis, colitis, perforated viscus, pneumatosis intestinalis, intussusception, or volvulus. Appendix: No evidence for appendicitis. Intraperitoneal space: No free air. No ascites. No abscess. Retroperitoneal space: No fluid collection. No mass. Vasculature: The abdominal aorta is normal in caliber. There are extensive atherosclerotic calcifications. Lymph nodes: Normal. No enlarged lymph nodes. Urinary bladder: There is a Cedeno catheter in appropriate position in the urinary bladder and gas in the bladder. No calculi are noted in the bladder. Reproductive: The prostate gland is enlarged and measures 4.6 cm x 5.6 cm x 4.7 cm and the volume of the prostate is increased and measures 63.3 mL. The seminal vesicles are unremarkable. Bones/joints: The imaged bony structures are intact. There are degenerative changes involving the lumbar spine. There is [id number] osteoarthritis of both hips. Degenerative changes of the pubic symphysis are present. Soft tissues: There is a small fat containing umbilical hernia. There is periumbilical subcutaneous edema. Small incision scars are noted in the right side of the anterior abdominal wall. There is ossification of the fascial layer superficial to the right gluteal muscles, which is similar in appearance compared to the prior CT abdomen and pelvis on 11/16/2020. IMPRESSION: 1. Two linear metallic density objects within the lumen of the 2nd portion of the duodenum and a linear metallic density object in the lumen of the distal ascending colon, which measure approximately 18 mm each and should be correlated with the patient's ingestion history. 2. Mesenteric fat stranding around the rectosigmoid anastomosis that is similar in appearance compared to the prior CT abdomen and pelvis on 11/16/2020 and may be inflammatory or postoperative in nature. 3. Liquid feces in the colon, which will lead to diarrhea. No evidence for a bowel obstruction. 4. Trace bilateral pleural effusions. No ascites. 5. Enlarged prostate. Electronically signed by: Dwight Ailcia On 11/21/2020 20:37:56 PM
[2020-11-21] MEDS: OCTREOTIDE ACETATE 100MCG/ML VIAL (J2354 PER 25MCG) IV SCH (20:41)
[2020-11-21 22:28] LABS: BASO % 0.5 % (0.0-1.0); EOS # 0.1 10^3/uL (0.0-0.5); EOS % 1.5 % (0.0-3.0); HEMATOCRIT 27.3 % (42.0-52.0); HEMOGLOBIN 9.1 g/dl (13.5-17.5); LYMPH # 1.2 10^3/uL (1.5-5.0); LYMPH % 13.8 % (24.0-44.0); MEAN CORPUSCULAR HEMOGLOBIN 30.7 pg (27.0-33.0); MEAN CORPUSCULAR HGB CONC 33.3 g/dl (32.0-36.5); MEAN CORPUSCULAR VOLUME 92.2 fl (80.0-96.0); MONO # 0.7 10^3/uL (0.0-0.8); MONO % 7.7 % (2.0-8.0); NEUTROPHILS # 6.5 10^3/uL (1.5-8.5); NEUTROPHILS % 75.1 % (36.0-66.0); PLATELET COUNT, AUTOMATED 191 10^3/uL (150-450); RED BLOOD COUNT 2.96 10^6/uL (4.30-6.10); WHITE BLOOD COUNT 8.6 10^3/uL (4.0-10.0)
[2020-11-22] VITALS (9 sets, daily range): BP systolic 104–127; BP diastolic 55–77
[2020-11-22] MEDS: SUCRALFATE SUSP 1GM/10ML UD PO SCH ×5 (00:30→23:38)
[2020-11-22] MEDS: LEVALBUTEROL 1.25 MG/0.5 ML CONCENTRATE NEB INH SCH ×4 (01:12→19:26)
[2020-11-22] MEDS: PANTOPRAZOLE SODIUM 40 MG in D5W 50 ML IV SCH ×5 (03:29→23:44)
[2020-11-22] MEDS: OCTREOTIDE ACETATE 100MCG/ML VIAL (J2354 PER 25MCG) IV SCH ×3 (04:18→20:44)
[2020-11-22 05:37] LABS: BASO % 0.4 % (0.0-1.0); EOS # 0.1 10^3/uL (0.0-0.5); HEMATOCRIT 26.7 % (42.0-52.0); HEMOGLOBIN 8.7 g/dl (13.5-17.5); LYMPH % 14.5 % (24.0-44.0); MEAN CORPUSCULAR HEMOGLOBIN 30.3 pg (27.0-33.0); MEAN CORPUSCULAR HGB CONC 32.6 g/dl (32.0-36.5); MONO # 0.6 10^3/uL (0.0-0.8); NEUTROPHILS # 5.3 10^3/uL (1.5-8.5); NEUTROPHILS % 73.3 % (36.0-66.0); PLATELET COUNT, AUTOMATED 187 10^3/uL (150-450); RED BLOOD COUNT 2.87 10^6/uL (4.30-6.10); WHITE BLOOD COUNT 7.2 10^3/uL (4.0-10.0)
[2020-11-22] MEDS: AMIODARONE 200 MG TAB (PACERONE) PO SCH ×3 (05:51→21:57)
[2020-11-22] MEDS: SODIUM CHLORIDE 0.9% INJ 10 ML SYR IV SCH ×2 (05:51→18:06)
[2020-11-22] MEDS: HumaLOG INSULIN (NovoLOG) PER UNIT SC SCH ×5 (05:52→23:56)
[2020-11-22 06:02] LABS: CALCIUM LEVEL 7.2 MG/DL (8.8-10.2); CREATININE FOR GFR 1.52 MG/DL (0.70-1.30); GLOMERULAR FILTRATION RATE 47.3 (>42); MAGNESIUM LEVEL 1.7 MG/DL (1.8-2.4); POTASSIUM SERUM 3.6 MEQ/L (3.5-5.1)
[2020-11-22] MEDS ORDERED: MAG SULF 1GM/100ML (MAG RUN) 1 GM in IV 1 EA IV ONE (08:00)
[2020-11-22] MEDS: PREPARATION H SUPP (HEMORRHOID) PR SCH ×2 (09:00→20:30)
--- NOTE | 2020-11-22 09:55 | IPNPDOC ---
Text Note Date of Service The patient was seen on 11/22/20. NOTE Subjective: Patient is a 80 year old male with a PMHx of AV replacement (Bioprosthetic), Chronic A. fib s/p ablation (01/2019), CAD s/p stent (2016), Diastolic CHF, DM2, CKD3, recent diagnosis of rectal adenocarcinoma (planned for elective colectomy this month), who presented to the ER with rectal bleeding. Patient was admitted to the hospitalist service for further evaluation and treatment. General surgery has been called on consultation. Yesterday evening, patient had a large bowel movement that was reported to be dark sharon patient. Case was discussed with general surgery and ultimately with transfer center at [facility] interventional radiology there recommended pursuing a tagged RBC study / bleeding scan. Patient was seen and examined at the bedside. Currently patient denies any nausea, vomiting, chest pain, shortness of breath, palpitations, abdominal pain, reported to have had some bowel movements overnight. However, one bowel movement was a smear and the second was green without any evidence of sharon colored stool. Denies any urinary discomfort - Cedeno catheter remains in place. Objective: Vitals (See below) General: Patient is laying in bed, appears to be comfortable without any acute distress, oriented to person, place and time HEENT: He is atraumatic and normocephalic CVS: +S1S2 Lungs: Air entry appears to be fair bilaterally without evidence of wheezing, crackles or rhonchi Abdomen: This morning his abdomen remains soft without any distention or tenderness. Is obese Extremities: His extremities reveal 1+ pitting edema bilaterally Imaging: XR abdomen 10/30: Bowel obstruction XR abdomen 11/09: 1. Postsurgical changes to the abdomen and pelvis. 2. Bowel gas pattern is relatively nonspecific as described above. Findings likely represent a mild postsurgical ileus and less likely obstruction. CXR 11/14: Findings suggest minimally improved left lower lobe opacity. Vascular US 11/15: No evidence for deep venous thrombosis right upper extremity. CT abdomen / pelvis 11/16: 1. There is significant distension to the stomach and duodenum with stranding along the proximal duodenum including few adjacent lymph nodes. An underlying duodenitis or element of occult obstruction must be considered. 2. Further relatively nonacute findings as described above. 3. Mild bibasilar atelectasis and small pleural effusions. Abdomen XR 11/17: Limited examination with air-filled loops of small and large bowel raising the possibility of ileus. CXR 11/17: Questionable trace left basilar atelectasis and small pleural reaction. Assessment and plan: Acute blood loss anemia / Anemia with iron deficiency - Yesterday evening, patient was reported to have had a sharon colored stool, however, has not had an further dark colored stools - Hg remains relatively stable - Will continue to trend H&H - EGD 11/20: Reported to have evidence of 2 ulcerations within the duodenum and a bleeding vessel that was cauterized and clipped - s/p 10 units PRBC transfusion - Will transfuse 1 unit PRBC this morning - c/w Protonix drip / Carafate / Octreotide - Yesterday, there was a conference call with JOVANNI RODRIGUEZ, general surgery and hospitalist service; IR service recommended pursuing a tagged RBC study prior to transfer - General surgery on consultation; appreciate their input s/p Left lower lobe pneumonia - This morning patient does not chest pain, short of breath, palpitations or cough - Remains afebrile - s/p Leukocytosis - Imaging noted above - MRSA 11/12: Negative - Blood cultures 11/12: No growth at 5 days - Blood cultures 11/20: No growth at 48 hours - s/p Zosyn (Completed 7 day course ) A. Fib with RVR - s/p Hypotension - c/w Amiodarone - Full anticoagulation with Eliquis on hold (re: Anemia / Acute blood loss) Decompensated Diastolic CHF - Evidence of lower extremity edema - c/w Spironolactone - Bumetanide on hold; will be evaluated for resumption today - Nephrology on consult; appreciate their input Colorectal cancer - s/p Sigmoid resection for colon cancer on 11/[address] 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
[2020-11-22] MEDS: SODIUM CHLORIDE 0.9% INJ 10 ML SYR IV PRN ×2 (13:01→14:45)
[2020-11-22 15:00] LABS: BASO % 0.6 % (0.0-1.0); EOS # 0.1 10^3/uL (0.0-0.5); EOS % 1.7 % (0.0-3.0); HEMATOCRIT 28.8 % (42.0-52.0); HEMOGLOBIN 9.4 g/dl (13.5-17.5); LYMPH # 1.1 10^3/uL (1.5-5.0); LYMPH % 16.5 % (24.0-44.0); MEAN CORPUSCULAR HEMOGLOBIN 30.4 pg (27.0-33.0); MEAN CORPUSCULAR HGB CONC 32.6 g/dl (32.0-36.5); MEAN CORPUSCULAR VOLUME 93.2 fl (80.0-96.0); MONO # 0.5 10^3/uL (0.0-0.8); MONO % 7.7 % (2.0-8.0); NEUTROPHILS # 4.7 10^3/uL (1.5-8.5); NEUTROPHILS % 72.6 % (36.0-66.0); PLATELET COUNT, AUTOMATED 188 10^3/uL (150-450); RED BLOOD COUNT 3.09 10^6/uL (4.30-6.10); WHITE BLOOD COUNT 6.5 10^3/uL (4.0-10.0)
[2020-11-22] MEDS ORDERED: FUROSEMIDE 40MG/4ML VIAL (J1940) IV ONE (17:20)
--- NOTE | 2020-11-22 17:53 | IPN ---
PROGRESS NOTE DATE: 11/22/2020 SUBJECTIVE: Patient overall has been relatively stable overnight. Hematocrit dropped just a little bit and is going to be receiving some blood transfusion this morning. Did not receive any blood last night. Overall, hematocrit has stayed stable yesterday and, as I stated, just slightly diminished this morning. He his not having any more melenotic stools or blood per rectum per se and he has been afebrile, not complaining of any abdominal pain. He has been on a clear liquid diet. No fevers or chills and his blood pressure has been stable. IMPRESSION/PLAN: Patient gastrointestinal (GI) bleed is relatively stable at this point and I would recommend that we continue him with continued supportive care, keep him on a clear liquid diet. We will see how he is doing over the next 24 hours. At this point, without direct evidence of continued GI bleeding, I do not think the bleeding scan will be helpful and an angiogram is not necessary. However, if he is opening up again at some point in the near future, those should be considerations for us. In any case, will continue with current treatment per medicine.
[2020-11-22 18:30] LABS: HEMATOCRIT 27.9 % (42.0-52.0); HEMOGLOBIN 9.2 g/dl (13.5-17.5)
--- NOTE | 2020-11-22 21:07 | IPN ---
PROGRESS NOTE DATE: 11/22/2020 SUBJECTIVE: Patient was seen and examined at the bedside today morning. He was getting PRBC transfusion. His renal function is stable and improving. He has a good urine output. He denies any active complaints at this time. OBJECTIVE: VITAL SIGNS: Temperature 97.3 degrees Fahrenheit, blood pressure 116/58, pulse 71, respiratory rate 18, saturating 98% on room air. INTAKE/OUTPUT: Urine output recorded as 925 mL so far today since overnight. Weight in the bed scale is 127.1 kg. PHYSICAL EXAMINATION: GENERAL: Patient is awake, alert and oriented x3, obese body habitus, lying in bed. HEAD/NECK: Extraocular muscles intact. Pupils equally round and reactive to light. Mucous membranes are moist. Neck is supple. There is no JVD. CVS: S1, S2, regular rate. 2+ edema of the bilateral lower extremities. RESPIRATORY: Chest is clear to auscultation bilaterally. Bilateral equal air entry. No rales or rhonchi. ABDOMEN: Soft, obese, positive bowel sounds, nontender. No organomegaly. MUSCULOSKELETAL: No clubbing or cyanosis. Pulses are 2+. [employer] SPECIALIST: No focal deficit. Power is 5/5 in all extremities. LABORATORY REVIEW: CBC showed WBC 6.5, hemoglobin 9.4. BMP showed sodium 144, potassium 3.6, chloride 115, bicarb 23, BUN 28, creatinine 1.5; it was 1.6 yesterday. Calcium 7.2 and magnesium 1.7. CURRENT INPATIENT MEDICATIONS: Patient's medications were all reviewed by myself. He continues to be on Protonix drip. He was given a dose of I.V. mag sulfate today. He is on Octreotide injections and currently not on any diuretics. ASSESSMENT AND PLAN: 1. Acute renal failure superimposed to chronic kidney disease: Renal function is stable and improving. He would get diuretics as needed. 2. Lower extremity edema: Patient has 2+ edema at this time and he is getting blood transfusion. I would give him one dose of I.V. Lasix now. 3. Blood loss anemia: Workup is as per surgical service and GI. Transfuse p.r.n. for hemoglobin less than 8. 4. Atrial fibrillation: Heart rate is controlled with Amiodarone. He is not a candidate for anticoagulation because of GI bleed. [facility]na
[2020-11-22 23:47] LABS: HEMOGLOBIN 8.9 g/dl (13.5-17.5)
[2020-11-23] VITALS (13 sets, daily range): BP systolic 101–149; BP diastolic 53–69
[2020-11-23] MEDS: LEVALBUTEROL 1.25 MG/0.5 ML CONCENTRATE NEB INH SCH ×4 (01:13→19:34)
[2020-11-23] MEDS: OCTREOTIDE ACETATE 100MCG/ML VIAL (J2354 PER 25MCG) IV SCH ×3 (04:00→20:00)
[2020-11-23] MEDS: PANTOPRAZOLE SODIUM 40 MG in D5W 50 ML IV SCH ×4 (04:48→21:00)
[2020-11-23] MEDS: AMIODARONE 200 MG TAB (PACERONE) PO SCH ×2 (06:03→14:20)
[2020-11-23] MEDS: SUCRALFATE SUSP 1GM/10ML UD PO SCH ×3 (06:03→18:08)
[2020-11-23] MEDS: SODIUM CHLORIDE 0.9% INJ 10 ML SYR IV SCH ×2 (06:04→18:09)
[2020-11-23 06:14] LABS: BASO # 0.1 10^3/uL (0.0-0.2); BASO % 0.7 % (0.0-1.0); EOS # 0.1 10^3/uL (0.0-0.5); EOS % 1.7 % (0.0-3.0); HEMOGLOBIN 8.1 g/dl (13.5-17.5); LYMPH % 13.8 % (24.0-44.0); MEAN CORPUSCULAR HEMOGLOBIN 30.6 pg (27.0-33.0); MEAN CORPUSCULAR HGB CONC 32.4 g/dl (32.0-36.5); MEAN CORPUSCULAR VOLUME 94.3 fl (80.0-96.0); MONO # 0.5 10^3/uL (0.0-0.8); MONO % 7.2 % (2.0-8.0); NEUTROPHILS # 5.4 10^3/uL (1.5-8.5); NEUTROPHILS % 74.9 % (36.0-66.0); PLATELET COUNT, AUTOMATED 189 10^3/uL (150-450); RED BLOOD COUNT 2.65 10^6/uL (4.30-6.10); WHITE BLOOD COUNT 7.2 10^3/uL (4.0-10.0)
[2020-11-23 06:32] LABS: CREATININE FOR GFR 1.39 MG/DL (0.70-1.30); GLOMERULAR FILTRATION RATE 52.5 (>42); MAGNESIUM LEVEL 1.9 MG/DL (1.8-2.4); POTASSIUM SERUM 3.3 MEQ/L (3.5-5.1)
[2020-11-23] MEDS: HumaLOG INSULIN (NovoLOG) PER UNIT SC SCH ×3 (06:34→18:08)
[2020-11-23] MEDS: PREPARATION H SUPP (HEMORRHOID) PR SCH ×2 (09:00→21:00)
--- NOTE | 2020-11-23 09:06 | IPNPDOC ---
Text Note Date of Service The patient was seen on 11/23/20. VS,Fishbone, I+O VS, Fishbone, I+O Laboratory Tests 11/22/20 14:44 11/22/20 18:04 11/22/20 23:35 11/23/20 05:57 Vital Signs Date Time Temp Pulse Resp B/P (MAP) Pulse Ox O2 Delivery O2 Flow Rate FiO2 11/23/20 08:00 97.1 80 17 101/55 (70) 98 Room Air 11/20/20 16:30 4.0 I&O- Last 24 Hours up to 6 AM 11/23/20 06:00 Intake Total 1940 ml Output Total 3275 ml Balance -1335 ml DEVIN HERR MD Nov 23, 2020 09:06
[2020-11-23] MEDS: ONDANSETRON 4MG/2ML VIAL IV PRN (09:52)
[2020-11-23] MEDS ORDERED: POTASSIUM CHLORIDE 10 MEQ SR TABLET PO ONE (11:20)
[2020-11-23 12:16] LABS: HEMATOCRIT 25.5 % (42.0-52.0); HEMOGLOBIN 8.4 g/dl (13.5-17.5)
[2020-11-23 12:26] LABS: INR 1.2; PROTHROMBIN TIME 15.5 SECONDS (12.5-14.3)
--- NOTE | 2020-11-23 14:25 | IPN ---
PROGRESS NOTE DATE: 11/23/2020 SUBJECTIVE: Patient overall states that he has not had a lot of black stools. Has had some green stools. However, that was early this morning and, after I had seen him, he had a large bowel movement that was melenotic. His laboratories did show that he had a significant drop with a one unit drop overnight. However, this is also a one unit drop at least, starting out at 27 and went up to 29 yesterday, and after a transfusion and dropped down to 25 today. He does not complain of any abdominal pain. No nausea or vomiting. His abdomen is mildly distended. He is morbidly obese. IMPRESSION/PLAN: Patient has a slow gastrointestinal (GI) bleed, although it seems as though it is opening up every so often. His hematocrit yesterday afternoon was good and then he looks as though he bleed overnight and then, this morning when we had a followup lab, after the morning drop, he seems to be stable again. Thus, at this point, I am concerned that we do not have a true etiology for his bleeding, although possibly the ulcers are contributing to this and his duodenum or possibly other additional ulcers. It is hard to tell at this point. I do feel that he needs a bleeding scan to help us determine exactly where this is. Unfortunately, given the weekend and the facility's difficulty in obtaining bleeding scans, not only on the weekend, but even on the weekdays, he may benefit from a transfer to a higher level care and also, at that point, if he has some active bleeding issues, then a CT angiogram could be performed, as the interventionalist had suggested the other night and that may further focus the interventionalist treatment plan.
--- NOTE | 2020-11-23 15:15 | IPNPDOC ---
Text Note Date of Service The patient was seen on 11/23/20. NOTE Interval update: - Discussed with [facility] transfer center; GI: Dr. 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 Bhatia - accepted patient on transfer; awaiting for bed availability (possibly today) VS,Fishbone, I+O VS, Fishbone, I+O Laboratory Tests 11/22/20 18:04 11/22/20 23:35 11/23/20 05:57 11/23/20 11:56 Vital Signs Date Time Temp Pulse Resp B/P (MAP) Pulse Ox O2 Delivery O2 Flow Rate FiO2 11/23/20 14:15 97.4 84 18 113/53 99 Room Air 11/20/20 16:30 4.0 I&O- Last 24 Hours up to 6 AM 11/23/20 06:00 Intake Total 1940 ml Output Total 3275 ml Balance -1335 ml DEVIN HERR MD Nov 23, 2020 15:15
[2020-11-23] MEDS ORDERED: OCTR100I IV (16:48)
[2020-11-23] MEDS ORDERED: PROT40IN4 IV (16:48)
[2020-11-23] MEDS ORDERED: LEVA12INH INH ×2 (16:48)
[2020-11-23] MEDS ORDERED: INSUHUMDS SC (16:48)
[2020-11-23] MEDS ORDERED: AMIO200T3 PO (16:48)
[2020-11-23] MEDS ORDERED: ONDA4INJ4 IV (16:48)
[2020-11-23] MEDS ORDERED: SUCR1ORA PO (16:48)
--- NOTE | 2020-11-23 16:54 | DS.PDOC ---
Discharge Summary General Date of Admission Oct 30, 2020 at 19:01 Date of Discharge 11/23/2020 Discharge Summary PROCEDURES PERFORMED DURING STAY: - EGD 11/20: Reported to have evidence of 2 ulcerations within the duodenum and a bleeding vessel that was cauterized and clipped - s/p Sigmoid resection for colon cancer on 11/[address] Shay ADMITTING DIAGNOSES / DISCHARGE DIAGNOSES: Acute blood loss anemia / Anemia with iron deficiency s/p Left lower lobe pneumonia A. Fib with RVR Decompensated Diastolic CHF Colorectal cancer Acute on chronic renal insufficiency s/p Metabolic acidosis - likely 2/2 Renal failure s/p Hypokalemia DM2 Obesity HTN CAD s/p stent DLP AV stenosis s/p AV replacement with bioprosthetic DVT prophylaxis COMPLICATIONS/CHIEF COMPLAINT: GI Bleed HISTORY OF PRESENT ILLNESS: Patient is a 80 year old male with a PMHx of AV replacement (Bioprosthetic), Chronic A. fib s/p ablation (01/2019), CAD s/p stent (2016), Diastolic CHF, DM2, CKD3, recent diagnosis of rectal adenocarcinoma (planned for elective colectomy this month), who presented to the ER with rectal bleeding. Patient was admitted to the hospitalist service for further evaluation and treatment. General surgery has been called on consultation. Yesterday evening, patient had a large bowel movement that was reported to be dark sharon patient. Case was discussed with general surgery and ultimately [facility] transfer center at [facility] interventional radiology there recommended pursuing a tagged RBC study / bleeding scan. Patient was seen and examined at the bedside. Currently, he denies any chest pain, shortness breath, palpitations, nausea, vomiting, abdominal pain.. He he has not experienced any bowel movements overnight. HOSPITAL COURSE: Acute blood loss anemia / Anemia with iron deficiency - No bowel movements reported overnight - Hg has had some decline this morning - Will continue to trend H&H q6h - EGD 11/20: Reported to have evidence of 2 ulcerations within the duodenum and a bleeding vessel that was cauterized and clipped - s/p 11 units PRBC transfusion; will be transfused again 2 units PRBC - c/w Protonix drip / Carafate / Octreotide - General surgery on consultation; appreciate their input; recommending transfer for interventional radiology angiography and embolization s/p Left lower lobe pneumonia - This morning patient does not chest pain, short of breath, palpitations or cough - Remains afebrile - s/p Leukocytosis - Imaging noted above - MRSA 11/12: Negative - Blood cultures 11/12: No growth at 5 days - Blood cultures 11/20: No growth at 48 hours - s/p Zosyn (Completed 7 day course ) A. Fib with RVR - s/p Hypotension - c/w Amiodarone - Full anticoagulation with Eliquis on hold (re: Anemia / Acute blood loss) Decompensated Diastolic CHF - LE with some edema - s/p Spironolactone - s/p Furosemide 1 dose on 11/22 - Nephrology on consult; appreciate their input Colorectal cancer - s/p Sigmoid resection for colon cancer on 11/[address] Shay - Will need follow up with Oncology Acute on chronic renal insufficiency s/p Metabolic acidosis - likely 2/2 Renal failure s/p Hypokalemia DM2 - c/w ISS Obesity - BMI of 38.8 - Complicating medical care HTN - BP well controlled - Currently only on diuretics CAD s/p stent - Plavix on hold DLP - Will hold Simvastatin (re: Amiodarone) AV stenosis s/p AV replacement with bioprosthetic DVT prophylaxis - c/w TEDs/Sequentials DISCHARGE MEDICATIONS: Please see below. ALLERGIES: Please see below. PHYSICAL EXAMINATION ON DISCHARGE: Vitals (See below) General: Patient is laying in bed comfortably. Does not appear to be in any acute distress, comfortable, awake, alert, oriented 3 HEENT: AT, NC CVS: +S1S2 Lungs: There appears to be fair air entry bilaterally without evidence of wheezing, rhonchi Abdomen: Nondistended, nontender, soft Extremities: Lower extremities still reveal 1+ pitting edema LABORATORY DATA: Please see below. IMAGING: XR abdomen 10/30: Bowel obstruction XR abdomen 11/09: 1. Postsurgical changes to the abdomen and pelvis. 2. Bowel gas pattern is relatively nonspecific as described above. Findings likely represent a mild postsurgical ileus and less likely obstruction. CXR 11/14: Findings suggest minimally improved left lower lobe opacity. Vascular US 11/15: No evidence for deep venous thrombosis right upper extremity. CT abdomen / pelvis 11/16: 1. There is significant distension to the stomach and duodenum with stranding along the proximal duodenum including few adjacent lymph nodes. An underlying duodenitis or element of occult obstruction must be considered. 2. Further relatively nonacute findings as described above. 3. Mild bibasilar atelectasis and small pleural effusions. Abdomen XR 11/17: Limited examination with air-filled loops of small and large bowel raising the possibility of ileus. CXR 11/17: Questionable trace left basilar atelectasis and small pleural reaction. ACTIVITY: [As tolerated]. DISCHARGE PLAN: Follow up with Dr. Bhatia (Hospitalist) at [facility] and Interventional radiology Remain compliant with treatment plan and medications Return to the ER if you experience any problems DISPOSITION: [facility] DISCHARGE CONDITION: [Stable]. TIME SPENT ON DISCHARGE: 35 minutes. Vital Signs/I&Os Vital Signs Date Time Temp Pulse Resp B/P (MAP) Pulse Ox O2 Delivery O2 Flow Rate FiO2 11/23/20 16:35 97.0 76 20 120/56 97 Room Air 11/20/20 16:30 4.0 I&O- Last 24 Hours up to 6 AM 11/23/20 06:00 Intake Total 1940 ml Output Total 3275 ml Balance -1335 ml Laboratory Data Labs 24H Laboratory Tests 2 11/22/20 17:56: Bedside Glucose (Misc Panel) 162H 11/22/20 23:37: Bedside Glucose (Misc Panel) 169H 11/23/20 04:12: Bedside Glucose (Misc Panel) 163H 11/23/20 05:57: Immature Granulocyte % (Auto) 1.7, Neutrophils (%) (Auto) 74.9H, Lymphocytes (%) (Auto) 13.8L, Monocytes (%) (Auto) 7.2, Eosinophils (%) (Auto) 1.7, Basophils (%) (Auto) 0.7, Neutrophils # (Auto) 5.4, Lymphocytes # (Auto) 1.0L, Monocytes # (Auto) 0.5, Eosinophils # (Auto) 0.1, Basophils # (Auto) 0.1, Nucleated Red Blood Cells % (auto) 0.0, Anion Gap 5L, Glomerular Filtration Rate 52.5, Calcium Level 7.0L, Magnesium Level 1.9 11/23/20 06:31: Bedside Glucose (Misc Panel) 174H 11/23/20 11:56: Prothrombin Time 15.5H, Prothromb Time International Ratio 1.20 11/23/20 12:40: Bedside Glucose (Misc Panel) 164H CBC/BMP Laboratory Tests 11/22/20 18:04 11/22/20 23:35 11/23/20 05:57 11/23/20 11:56 FSBS Laboratory Tests Test 11/22/20 17:56 11/22/20 23:37 11/23/20 04:12 11/23/20 06:31 Range/Units Bedside Glucose (Misc Panel) 162 169 163 174 83-110 MG/DL Test 11/23/20 12:40 Range/Units Bedside Glucose (Misc Panel) 164 83-110 MG/DL Microbiology Microbiology 11/20/20 Blood Culture - Preliminary, Resulted No Growth after 72 hours. All specime... Discharge Medications Scheduled Amiodarone HCl (Amiodarone HCl) 200 Mg Tablet, 400 MG PO Q8H Insulin Human Lispro (Humalog) 100 Unit/1 Ml Vial, 0 UNITS SC Q6H Levalbuterol Hydrochloride (Xopenex Concentrate) 1.25 Mg/0.5 Ml Vial.neb, 1.25 MG INH RQ6H Octreotide Acetate (Octreotide Acetate) 100 Mcg/1 Ml Vial, 100 MCG IV Q8H Pantoprazole Sodium (Protonix IV) 40 Mg Vial, 40 MG IV Q24H PRTONIX DRIP Sucralfate (Sucralfate) 1 Gm/10 Ml Oral.susp, 1 GM PO Q6H Scheduled PRN Levalbuterol Hydrochloride (Xopenex Concentrate) 1.25 Mg/0.5 Ml Vial.neb, 1.25 MG INH Q1HP PRN for SHORTNESS OF BREATH Ondansetron HCl/Pf (Ondansetron HCl 4 mg/2 ml Vial) 4 Mg/2 Ml Vial, 4 MG IV Q4HP PRN for NAUSEA OR VOMITING Allergies Coded Allergies: Sulfa (Sulfonamide Antibiotics) (Verified Allergy, Unknown, 10/18/20) DEVIN HERR MD Nov 23, 2020 16:54
--- NOTE | 2020-11-23 23:12 | IPN ---
NEPHROLOGY PROGRESS NOTE DATE: 11/23/2020 SUBJECTIVE: The patient was seen and examined at the bedside today morning. He was laying in the bed and he had a significant amount of melanotic stools on the bed. His nurse was informed and myself and I informed his Hospitalist, Dr. Anderson as well. The patient was given a dose of diuretic yesterday for lower extremity edema. He made a good amount of urine with that and the patient also has improving renal function with a creatinine of 1.3 today. OBJECTIVE: VITAL SIGNS: Temperature is 97.3 degrees Fahrenheit, blood pressure 127/59, pulse is 87, respiratory rate of 20, saturating 98% on room air. INTAKE AND OUTPUT: Urine output recorded as 2.6 liters yesterday, 1.8 liters so far today. Weight in the bed scale is 123.4 kg. PHYSICAL EXAMINATION: GENERAL APPEARANCE: The patient is awake, alert, oriented x3, laying in bed in no apparent distress. HEAD AND NECK: Extraocular muscles intact. Pupils are equally round and reactive to light. Mucous membranes are moist. Neck is supple. There is no jugular venous distention. CARDIOVASCULAR: S1, S2, regular rate. EXTREMITIES: 1+ edema of the bilateral lower extremities. RESPIRATORY: Chest is clear to auscultation bilaterally. Bilaterally currently no rales or rhonchi. ABDOMEN: Soft, obese, positive bowel sounds, nontender, no organomegaly. MUSCULOSKELETAL: No clubbing, no cyanosis. Pulses are 2+. AEROSPACE STRESS ENGINEER: No focal deficits. Power is 5/5 in all extremities. GENITOURINARY: The patient is wearing a diaper and there is a large amount of melanotic stools in his diaper and on his bed as well. LAB REVIEW: CBC showed a WBC count of 7.2, hemoglobin 8.1, platelet count 189. BMP showed sodium 142, potassium 3.3, chloride 112, bicarbonate is 25, BUN 30, creatinine is 1.3, it was 1.5 yesterday. CURRENT INPATIENT MEDICATIONS: The patient's medications were all reviewed by myself. He continues to be on Protonix drip. He is on Amiodarone. He was given a dose of Lasix yesterday. I also gave him a dose of oral potassium chloride. No other significant change in the medications today. ASSESSMENT AND PLAN: 1. Acute renal failure the patient's renal function is stable and improving. He tolerated one dose of diuretic yesterday. Continue to monitor on a daily basis. 2. Lower extremity edema - The patient was given one dose of Lasix. He is actively bleeding at this time. I would not give him any diuretic at this time. 3. Active melena and blood loss anemia Surgical service is on board. Medical Team is in contact with [facility] for possible transfer of the patient. Transfuse p.r.n. to keep hemoglobin above 8. 4. Atrial fibrillation - heart rate is controlled with Amiodarone. He is not a candidate for anticoagulation. 5. Hypokalemia - The patient was given a dose of potassium chloride today morning.
== END 2020-11-23 21:05 | disposition home or self-care (01) | DRG 329 ==
LOC: M ED 14:38 → M ED INP 19:01 → ENRESERV 20:46 → M PCU 21:22 → M MS5PR 11-01 12:52 → M RR INP 11-05 19:16 → M MS5PR 11-05 20:32 → M PCU 11-11 08:40
PROVIDERS: ADMIT Family Medicine; ATTEND Internal Medicine
PROC: 8E0W4CZ Robotic Assisted Procedure of Trunk Region, Percutaneous Endoscopic Approach (ICD-10-PCS; 2020-11-05)
PROC: 0WQF4ZZ Repair Abdominal Wall, Percutaneous Endoscopic Approach (ICD-10-PCS; 2020-11-05)
PROC: 0DTN4ZZ Resection of Sigmoid Colon, Percutaneous Endoscopic Approach (ICD-10-PCS; principal; 2020-11-05 14:45)
PROC: 02HV33Z Insertion of Infusion Device into Superior Vena Cava, Percutaneous Approach (ICD-10-PCS; 2020-11-12)
PROC: 30233N1 Transfusion of Nonautologous Red Blood Cells into Peripheral Vein, Percutaneous Approach (ICD-10-PCS; 2020-11-16)
DX: C19 Malignant neoplasm of rectosigmoid junction (principal); J18.9 Pneumonia, unspecified organism; J96.01 Acute respiratory failure with hypoxia; A41.9 Sepsis, unspecified organism; I50.33 Acute on chronic diastolic (congestive) heart failure; K26.4 Chronic or unspecified duodenal ulcer with hemorrhage; K56.609 Unspecified intestinal obstruction, unspecified as to partial versus complete obstruction; I48.20 Chronic atrial fibrillation, unspecified; N17.9 Acute kidney failure, unspecified; K91.89 Other postprocedural complications and disorders of digestive system; E87.2 Acidosis; E46 Unspecified protein-calorie malnutrition; D62 Acute posthemorrhagic anemia; E87.0 Hyperosmolality and hypernatremia; I13.0 Hypertensive heart and chronic kidney disease with heart failure and stage 1 through stage 4 chronic kidney disease, or unspecified chronic kidney disease; E11.9 Type 2 diabetes mellitus without complications; E87.6 Hypokalemia; N18.30 Chronic kidney disease, stage 3 unspecified; E66.9 Obesity, unspecified; R19.7 Diarrhea, unspecified; I25.10 Atherosclerotic heart disease of native coronary artery without angina pectoris; Z95.2 Presence of prosthetic heart valve; Z68.38 Body mass index [BMI] 38.0-38.9, adult; Z79.899 Other long term (current) drug therapy; Z88.2 Allergy status to sulfonamides; I95.9 Hypotension, unspecified